=== PATIENT | female | born 1975 | race Caucasian/White ===

== ENCOUNTER 2019-12-15 04:36 | Inpatient (IN) | payer OTHER, SELFPAY ==
--- NOTE | ~2019-12-15 | CT_ITS ---
EXAMINATION: CT abdomen pelvis w con INDICATION: Abdominal pain TECHNIQUE: Computed tomographic images of the abdomen and pelvis were obtained after the administrati on of 100 cc of Omnipaque 350 intravenous contrast. The dose-length product (DLP) was 274.14 mGy-cm. Automated exposure control and iterative reconstruction technique were employed. COMPARISON: None available FINDINGS: A 3 mm nodule right lower lobe likely granulomatous disease. The heart size is normal. Ther e is a 1.3 cm cyst of the left hepatic lobe. The spleen, pancreas, and adrenal glands are normal. The re is wall thickening of the gallbladder. No definite gallstones are identified. There is no intrahep atic or extrahepatic biliary dilatation. The kidneys are unremarkable. No pathologically enlarged abd ominal or pelvic lymph nodes are identified. Large stool There is a small fat-containing umbilical he rnia. IMPRESSION: 1. Gallbladder wall thickening which could reflect acute cholecystitis. Consider further evaluation w ith ultrasound and/or nuclear hepatobiliary scan. Reviewed, dictated and finalized at location A. E GRINDER IMPRESSION: 1. Gallbladder wall thickening which could reflect acute cholecystitis. Conside r further evaluation with ultrasound and/or nuclear hepatobiliary scan.
--- NOTE | ~2019-12-15 | XR_ITS ---
EXAMINATION: XR chest 2V DATE: 12/15/2019 05:38 INDICATION: Cough TECHNIQUE: PA and lateral views of the chest are obtained. COMPARISON: None available FINDINGS: The lungs are free of acute opacities. There is no pleural effusion or pneumothorax. The ca rdiomediastinal silhouette is normal. The visualized bones and soft tissues are unremarkable. IMPRESSION: 1. No acute cardiopulmonary abnormality. Reviewed, dictated and finalized at location A. [employer] [employer]
[2019-12-15 04:39] VITALS: BP 142/67; PULSE 94; RESP 18; TEMP 36.8; O2SAT 99
--- NOTE | 2019-12-15 04:47 | ECG_ITS ---
Measurements Intervals [place] Rate: 83 P: 64 WI: 153 QRS: 58 QRSD: 90 T: 32 QT: 359 QTc: 422 Interpretive Statements SINUS RHYTHM NORMAL ECG Electronically Signed On 12-15-2019 6:54:36 HOME LENDING OFFICER by Ariel Rodarte D.O.
--- NOTE | 2019-12-15 04:48 | ED.ABDPAIN ---
HPI - Abdominal Pain General Chief Complaint: Abdominal Pain Stated Complaint: abd pain Time Seen by Provider: 12/15/19 04:45 Source: RN notes reviewed History of Present Illness HPI narrative: Patient presents emergency department from home for abdominal pain. Patient states that pain began at 7 PM last night. The pain is located in the epigastric region and goes through into the back. The pain is described as a pressure in nature. States the patient has come and gone throughout the night and is currently improved. She denies any fevers or chills, shortness of breath vomiting diarrhea or any other symptoms. Patient states she was just diagnosed with gallstones last week with an ultrasound and is scheduled to see Dr. York for general surgery. She states that this is her fifth episode of similar pain this year is why she has had the ultrasound. She denies taking any medication at home Related Data Home Medications Medication Instructions Recorded Confirmed Xarelto 20 mg PO DAILY 08/19/19 08/27/19 Zyrtec 10 mg PO DAILY 08/19/19 08/27/19 alprazolam [Xanax] 0.25 mg PO BID PRN 08/19/19 08/27/19 atorvastatin 40 mg PO DAILY 08/19/19 08/27/19 cholecalciferol (vitamin D3) 1 unit PO DAILY 08/19/19 08/27/19 [Vitamin D3] doxycycline hyclate 100 mg PO DAILY 08/19/19 08/27/19 metoprolol succinate 25 mg PO DAILY 08/19/19 08/27/19 spironolactone 50 mg PO DAILY 08/19/19 08/27/19 amoxicillin 500 mg PO DAILY 12/15/19 pantoprazole 40 mg PO DAILY 12/15/19 Allergies Allergy/AdvReac Type Severity Reaction Status Date / Time cat dander Allergy Unknown Verified 12/15/19 04:48 mushroom Allergy Unknown Verified 12/15/19 04:48 SUMATRIPTAN SUCCINATE Allergy Mild Swelling Uncoded 12/15/19 04:48 of Lip/Tongue/Throat Review of Systems Review of Systems: Narrative: Gen.: Denies fevers or chills ENT: Denies congestion Respiratory: Denies shortness of breath or cough CV: Denies chest pain or palpitations GI: See HPI denies burning, urgency, frequency or hematuria Musculoskeletal: Denies back pain or muscle pain Neuro: Denies numbness, tingling, weakness or focal weakness Skin: Denies rash Except as documented, all other systems reviewed and negative FORMERLY [facility], 1928–1983 Past Medical History Medical History Anxiety DVT (deep venous thrombosis) blood clot currently in left leg Factor V Leiden History of heart attack 06/2019 - balloon angioplasty Hypertension Social History Social History Smoking status: Never smoker Second hand tobacco smoke exposure: No Alcohol intake: current Drinks per week: 1 Substance use: never Gender identity (if verbalized by the patient): Female Spiritual care concerns: No Exam Narrative: Exam Narrative: APPEARANCE: No acute distress, nontoxic, resting in bed HEENT: Normocephalic, atraumatic, OMM RESPIRATORY: No respiratory distress, clear to auscultation bilaterally with no rhonchi wheezing or rales CARDIOVASCULAR: RRR s murmur ABDOMINAL: Soft, nondistended, tender to palpation epigastric right upper quadrant, no tenderness left lower quadrant, right lower quadrant left lower quadrant, no rebound or guarding MUSCULOSKELETAl: Moves all extremities. No clubbing, cyanosis or edema. NEURO: Awake and alert. Following commands, speech normal, no focal deficits SKIN:: Warm, dry. Normal Color PSYCHIATRIC: Normal affect/mood Course Course Emergency Course: Discussed with Dr. Sarah presentation work-up. This time request admission to his service. Request patient started on Zosyn Patient states she last took her dose of Xarelto at 7:00 last night Discussed with patient and family results of workup and diagnosis. Discussed need for admission. Patient and family understand and agree to current treatment plan Vital Signs Vital signs: Vital Signs Temperature 98.2 F 12/15/19 04:39 Pul
[2019-12-15 05:05] LABS: Basophils Percent Auto 0.3 % (0.2-1.2); Eosinophils Absolute Auto 0.2 K/mm3 (0-0.3); Eosinophils Percent Auto 2.4 % (0-4.4); Hematocrit 38.2 % (37.0-47.0); Hemoglobin 12.7 g/dL (12.0-15.0); Immature Granulocyte Absolute 0.03 K/mm3 (0.00-0.031); Immature Granulocyte Percent A 0.3 % (0-0.5); Lymphocytes Absolute Auto 1.93 K/mm3 (0.9-3.2); Lymphocytes Percent Auto 22.5 % (18.3-44.2); Mean Corpuscular HGB Conc 33.2 g/dl (32-36); Mean Corpuscular Hemoglobin 28.7 pg (26-34); Mean Corpuscular Volume 86.2 fl (80-100); Mean Platelet Volume 10.2 fl (7.4-10.4); Monocytes Absolute Auto 0.6 K/mm3 (0.1-0.6); Monocytes Percent Auto 6.8 % (2.6-8.5); Neutrophils Absolute Auto 5.8 K/mm3 (1.3-6.7); Neutrophils Percent Auto 67.7 % (45.5-73.1); Platelet Count Result 290 k/mm3 (150-375); Red Blood Count 4.43 M/mm3 (4.2-5.4); Red Cell Distribution Width 13.4 % (11.5-14.5); White Blood Count 8.6 K/mm3 (4.5-10.0)
[2019-12-15] MEDS: KETOROLAC 30 MG/ML VIAL (*BKC) IV PUSH (05:07)
[2019-12-15] MEDS: LACTATED RINGERS 1,000 ML 999 ML IV CONT (05:07)
[2019-12-15 05:17] LABS: Alanine Aminotransferase 46 U/L (4-35); Albumin Level 4.5 g/dL (3.5-5.1); Alkaline Phosphatase 108 U/L (38-126); Aspartate Amino Transferase 35 U/L (14-36); Bilirubin,Total 0.6 mg/dL (0.2-1.3); Blood Urea Nitrogen 15 mg/dL (7-17); Calcium 9.2 mg/dL (8.4-10.2); Carbon Dioxide 25 mmol/L (22-30); Chloride 98 mmol/L (98-107); Estimated Glomerular Filt Rate > 60; Glucose 102 mg/dL (65-105); Lipase 227 U/L (23-300); Potassium 3.9 mmol/L (3.4-5.0); Sodium 138 mmol/L (137-145)
[2019-12-15 05:20] LABS: Add Urine Microscopic? NO; Appearance Urine Clear (Clear); Bilirubin Urine Negative (Negative); Blood Urine Negative (Negative); Color Urine Colorless (Yellow); Glucose Urine UA Negative (Negative); Ketones Urine Negative (Negative); Leukocyte Esterase Ur Negative LEU/UL (Negative); Nitrate Urine Negative (Negative); Protein Urine Negative (Negative); Specific Grav Ur 1.005 (1.001-1.035); Urobilinogen Urine Negative mg/dL (<2.0)
[2019-12-15 05:28] LABS: Troponin I < 0.012 ng/mL (0.000-0.034)
[2019-12-15 05:31] LABS: INR 1.4; Prothrombin Time 16.8 Seconds (11.1-14.7)
[2019-12-15 05:32] LABS: Partial Thromboplastin Time 33.9 SECONDS (22.3-36.8)
[2019-12-15 05:58] VITALS: BP 126/69; PULSE 88; RESP 20; O2SAT 99
[2019-12-15 06:45] VITALS: BP 116/68; PULSE 73; RESP 19; TEMP 36.7; O2SAT 99
--- NOTE | 2019-12-15 06:58 | ADMGEN ---
This patient, Geri Monteiro, was admitted to [facility] Surg Room 331-01 at 0655. Patient/family oriented to hospital policies and general routines including ID bracelet, bed and alarms, visiting hours, pain management, procedures, bathroom and other care routines, personal items, smoking policy, room service/diet, and visiting hours. Valuables list has been completed. Information on how to activate the Rapid Response Team has been discussed. Patient/Family are encouraged to report perceived risks to care and to ask questions if they do not understand what they are told or what they should do.
[2019-12-15 07:11] VITALS: BP 120/64; PULSE 73; RESP 18; TEMP 36.6; O2SAT 100
[2019-12-15] MEDS: LACTATED RINGERS 1,000 ML 125 ML IV CONT ×2 (08:58→18:12)
--- NOTE | 2019-12-15 11:19 | PM.IMHP ---
H&P: HPI History of Present Illness Chief complaint: cholecystitis Narrative: Geri Monteiro is a 44 year old female with Factor V Leiden and history of a STEMI and left lower extremity DVT in June of 2019. She has been having intermittent episodes of epigastric abdominal pain and chest pain that radiates to the back since early October of 2018. She reports five episodes of this similar type of pain. For the first three episodes, she associated this pain with heartburn and would take over the counter antacids and her pain would resolve fairly quickly. She then had a more intense episode of pain that started during the day after eating chili about 1-2 weeks ago. The pain lasted through the night but resolved the next day. She called her PCP for this pain and they ordered an ultrasound and labs, which were done on 's day. She then saw her PCP, was told she had gallstones, and was referred to our office for a consultation. She does not have an appointment scheduled as of now. She reports that her PCP instructed her to go to the ER if her abdominal pain returns and persists more than a half hour. She then reports that yesterday she had a hamburger and macaroni and cheese in the late afternoon. She then developed mild epigastric abdominal pain that radiates to her lower midsternal chest and around to her back around 9 pm. She tried to eat chicken noodle soup to help, which did not alleviate her pain. She drank water and used a warm compress to her upper abdomen, and was able to fall asleep. Around 1:30 am this morning, she had a sudden onset of this same pain that woke her from her sleep. The pain was rated at a 9/10 on a pain scale and was unrelenting. She reports trying to get up from bed to go to the hospital, but her pain would improve with standing or walking. Therefore, she put off going to the hospital for a few hours. She states that within lying back in bed, her pain would return severely within 5 minutes. Due to the continued pain, she decided to present to the ER for further evaluation. CT scan of the abdomen and pelvis showed gallbladder wall thickening, but no gallstones seen and no biliary ductal dilation. Labs revealed a normal white blood cell count of 8,600, normal troponin, total bilirubin 0.6, AST 35, ALT 46, alk phos 108, and lipase 227. Chest x-ray showed no acute cardiopulmonary findings. Our service was then contacted and the patient was admitted for concern of possible acute cholecystitis. The patient is now being seen on the medical floor. She was made NPO and started on IV fluids, analgesics, antiemetics, and IV antibiotics. She reports her pain was nearly resolved in the ED, but is now at a 2/10 on a pain scale and in the same location. She did develop some dry heaving on the drive into the hospital, but denies nausea or vomiting at this time. She reports an associated low grade fever of 99 F early this morning, but afebrile since admission. She also reports seeing her PCP last week for upper respiratory symptoms with a persistent cough. She tested negative for influenza in the office and was put on amoxicillin. Reports mild shortness of breath, or the feeling on being unable to get a good breath , since her STEMI in June. No other complaints at this time. Also to note, the patient was admitted to [facility] on 07/07/19 for a STEMI. She was taken for an emergent cardiac catheterization and was found to have thrombus in her RPL branch and was treated with balloon angioplasty, no stent was placed, and no evidence of coronary artery disease. The patient was then started on metoprolol, atorvastatin, and Effient. Echocardiogram was performed and showed a normal ejection fraction and also a patent foramen ovale. She was also found to have a left common femoral DVT and was started on Xarelto during this admission. Dr. Bowles had been consulted during this admission due to her Factor V Leiden and she has been following him on an outpatient basis as well.
[2019-12-15 14:00] VITALS: BP 130/67; PULSE 80; RESP 18; TEMP 37.1; O2SAT 97
[2019-12-15] MEDS: KETOROLAC 10 MG TABLET PO (18:19)
[2019-12-15] MEDS: DEXTROMETHORPHAN POLISTIREX 60 MG/10 ML SYRINGE PO (18:40)
[2019-12-15] MEDS: LORATADINE 10 MG TABLET PO (18:41)
[2019-12-15] MEDS: PANTOPRAZOLE 40 MG TABLET PO (18:42)
[2019-12-15 22:00] VITALS: BP 101/49; PULSE 72; RESP 16; TEMP 36.6; O2SAT 97; BMI 20.7
[2019-12-16] MEDS: LACTATED RINGERS 1,000 ML 125 ML IV CONT ×3 (02:36→20:20)
[2019-12-16 06:08] VITALS: BP 103/52; PULSE 56; RESP 20; TEMP 36.6; O2SAT 97
[2019-12-16 06:58] LABS: Basophils Percent Auto 0.5 % (0.2-1.2); Eosinophils Absolute Auto 0.2 K/mm3 (0-0.3); Eosinophils Percent Auto 3.3 % (0-4.4); Hemoglobin 10.8 g/dL (12.0-15.0); Immature Granulocyte Absolute 0.02 K/mm3 (0.00-0.031); Immature Granulocyte Percent A 0.3 % (0-0.5); Lymphocytes Absolute Auto 2.18 K/mm3 (0.9-3.2); Lymphocytes Percent Auto 37.5 % (18.3-44.2); Mean Corpuscular HGB Conc 33.8 g/dl (32-36); Mean Corpuscular Hemoglobin 28.6 pg (26-34); Mean Corpuscular Volume 84.9 fl (80-100); Mean Platelet Volume 9.7 fl (7.4-10.4); Monocytes Absolute Auto 0.3 K/mm3 (0.1-0.6); Monocytes Percent Auto 5.8 % (2.6-8.5); Neutrophils Absolute Auto 3.1 K/mm3 (1.3-6.7); Neutrophils Percent Auto 52.6 % (45.5-73.1); Platelet Count Result 221 k/mm3 (150-375); Red Blood Count 3.77 M/mm3 (4.2-5.4); Red Cell Distribution Width 13.6 % (11.5-14.5); White Blood Count 5.8 K/mm3 (4.5-10.0)
[2019-12-16 07:14] LABS: Alanine Aminotransferase 31 U/L (4-35); Alkaline Phosphatase 64 U/L (38-126); Aspartate Amino Transferase 25 U/L (14-36); Bilirubin,Total 0.8 mg/dL (0.2-1.3); Blood Urea Nitrogen 10 mg/dL (7-17); Calcium 8.2 mg/dL (8.4-10.2); Carbon Dioxide 28 mmol/L (22-30); Chloride 104 mmol/L (98-107); Estimated CRCL calculation 65 ml/min; Estimated Glomerular Filt Rate > 60; Glucose 79 mg/dL (65-105); Potassium 3.9 mmol/L (3.4-5.0); Sodium 138 mmol/L (137-145)
[2019-12-16] MEDS: PANTOPRAZOLE 40 MG TABLET PO (08:09)
[2019-12-16] MEDS: LORATADINE 10 MG TABLET PO (08:09)
[2019-12-16] MEDS: DEXTROMETHORPHAN POLISTIREX 60 MG/10 ML SYRINGE PO ×2 (08:11→21:37)
[2019-12-16] MEDS: ENOXAPARIN 80 MG/0.8 ML SYRINGE 65 MG SUB-Q ×2 (10:06→20:28)
--- NOTE | 2019-12-16 11:13 | PM.CNCAR ---
Assessment and Plan Assessment and plan (1) Acute cholecystitis: Code(s): K81.0 - Acute cholecystitis Status: Acute Assessment and Plan: 44-year-old female with history of factor 5 leiden ? Heterozygous, acute coronary syndrome-likely coronary embolic event/paradoxical embolization, status post balloon angioplasty RPL branch on 07/07/2019, PFO (attempted closure of a small PFO unsuccessful on 12/08/2019 at [facility], history of left lower extremity DVT. Patient admitted to the hospital with abdominal pain, and found to have acute cholecystitis. Patient is essentially asymptomatic from cardiac standpoint at present. EKG is normal. - Patient is currently awaiting cholecystectomy. Management as per the surgery. - okay to proceed with surgery from cardiac standpoint. -patient has factor 5 Leiden, history of DVT, and cardioembolic event due to paradoxical embolization with underlying small PFO. She has been on chronic anticoagulation with rivaroxaban. Unfortunately, her recent attempted PFO closure was unsuccessful at [facility]. Due to patient's history of thromboembolic events, it is appropriate to bridge her anticoagulation with low-molecular weight heparin, and resume rivaroxaban as soon as safe from surgical standpoint postoperatively. -no further cardiac testing is necessary at this time. Outpatient follow-up with me in next few weeks. Patient is also scheduled to see her management coordinator as an outpatient. (2) Factor V Leiden: Code(s): D68.51 - Activated protein C resistance Status: Acute Assessment and Plan: See above (3) History of MO (myocardial infarction): Code(s): I25.2 - Old myocardial infarction Status: Acute Assessment and Plan: See above. Continue low-dose aspirin regimen. (4) History of DVT (deep vein thrombosis): Code(s): Z86.718 - Personal history of other venous thrombosis and embolism Status: Acute Assessment and Plan: See above (5) PFO (patent foramen ovale): Code(s): Q21.1 - Atrial septal defect Status: Acute Assessment and Plan: Management as described above History of Present Illness History of Present Illness Consult date/time: 12/16/19 11:13 Date of consult: 12/16/2019 Reason for consult: Preop cardiovascular assessment Requesting physician: ANJALI Hampton Chief complaint: Abdominal pain HPI: 44-year-old female with history of factor 5 leiden ? Heterozygous, acute coronary syndrome-likely coronary embolic event/paradoxical embolization, status post balloon angioplasty RPL branch on 07/07/2019, PFO (attempted closure of a small PFO unsuccessful on 12/08/2019 at [place]) [facility], history of left lower extremity DVT. Patient was admitted to [facility] on 12/15/2019 with complaints of abdominal pain. Patient states that she has been experiencing episodes of epigastric and right upper quadrant discomfort, at least 5 episodes since October 2019. She is that she had an ultrasound done and was told that she has gallstones. She came to the hospital yesterday with recurrent discomfort in the epigastric area. She denied any associated symptoms including nausea, vomiting, constipation or diarrhea. From cardiac standpoint, she denies any chest pain, shortness of breath. CT scan of the abdomen reported Gallbladder wall thickening suggestive of acute cholecystitis. Patient is currently waiting for the cholecystectomy. Her EKG on this admission which I personally evaluated shows sinus rhythm, no acute ST segment abnormality. Chest x-ray is unremarkable. Reason For Visit: cholecystitis Review of Systems Constitutional: Constitutional: Denies chills, Denies fatigue, Denies fever(s) and Denies headache(s) Eyes: Eyes: Reports as per HPI, Denies change in vision, Denies loss of vision and Denies eye pain ENT: Reports as per HPI, Reports Normal hearing present, Denies headache(s), Denies lip
--- NOTE | 2019-12-16 11:55 | PM.PNGS ---
Progress Note: A&P Assessment and Plan (1) Acute cholecystitis: Code(s): K81.0 - Acute cholecystitis Status: Acute Assessment and Plan: Patient clinically improved but would like to proceed with surgery on this admission if possible. Continue IV antibiotics. Cardiology consult reviewed and appreciated. We will proceed with surgery and initiated bridging with therapeutic-dosed Lovenox today Will allow clear liquid diet for today and plan to schedule surgery tomorrow with Dr. Sarah. (2) Anticoagulant long-term use: Code(s): Z79.01 - intermediate (current) use of anticoagulants Status: Acute Assessment and Plan: Cardiology recommends bridging her anticoagulation with LMWH and resuming her Xarelto as soon as safe after surgery, due to her history of thromboembolic events. Currently on therapeutic dose of Lovenox pre-operatively. Hold her dose tomorrow morning. (3) Factor V Leiden: Code(s): D68.51 - Activated protein C resistance Status: Acute (4) History of heart attack: Code(s): I25.2 - Old myocardial infarction Status: Acute Assessment and Plan: Acute coronary syndrome in June 2019 and was found to have likely a coronary embolic event/paradoxical embolization requiring balloon angioplasty to RPL branch on 07/07/19. (5) PFO (patent foramen ovale): Code(s): Q21.1 - Atrial septal defect Status: Acute Assessment and Plan: Attempted closure of small PFO on 12/08/19, which was unsuccessful. Additional Plan Discussed the patient's case and plan of care with Dr. Sarah. Subjective Subjective Date/Time Seen: 12/16/19 09:55 Patient reports: no new complaints, feels better and bowel movement Interval history: Patient seen and examined. Denies any abdominal or substernal pain this morning. Tolerating clear liquids well without nausea, vomiting, or bloating. No other complaints at this time. Review of Systems Review of Systems: All systems reviewed & are unremarkable except as noted in HPI and below Exam Const: General: comfortable and no acute distress Resp: Auscultation: clear to auscultation bilaterally Cardio: Rate: regular rate Rhythm: regular rhythm GI: Inspection: normal to inspection and non-distended GI Palp: Yes Soft to palpation, Yes Tenderness to palpation present (GI) (upper abdomen mostly in RUQ), No Guarding due to palpation present (GI) and No Rebound tenderness present Auscultation: normal bowel sounds Skin: General skin exam: normal color Neuro: General: patient oriented x3 and no focal motor deficits Speech: normal speech Extrem: General: normal to inspection Psych: Mental Status: mental status grossly normal Attitude: cooperative Objective Data Vital Signs Vital Signs: Vital Signs - 24 hr 12/15/19 14:00 12/15/19 22:00 12/16/19 06:08 Temperature 37.1 C 36.6 C 36.6 C Pulse Rate 80 72 56 L Respiratory Rate 18 16 20 Blood Pressure 130/67 101/49 L 103/52 L Pulse Oximetry 97 97 97 Intake/Output Intake/Output: Intake & Output 12/13/19 12/14/19 12/15/19 12/16/19 23:59 23:59 23:59 23:59 Intake Total 2800 2620 Output Total 1000 Balance 2800 1620 Meds/Results Medications: Active Medications Generic Name Dose Route Start Last Admin Trade Name Freq PRN Reason Stop Dose Admin Dextromethorphan Polistirix 60 mg 12/15/19 17:09 12/16/19 08:11 Delsym PO 60 mg Q12H PRN Administration Cough Enoxaparin Sodium 65 mg 12/16/19 09:00 12/16/19 10:06 Lovenox SUB-Q 65 mg Q12H CHACORTA Administration Lactated Ringer's 1,000 mls @ 125 mls/hr 12/15/19 06:10 12/16/19 11:45 Lr - Lactated Ringers Iv IV CONT 125 mls/hr .Q8H CHACORTA Administration Piperacillin/Tazobactam/Dextrose 3.375 gm in 50 mls @ 100 mls/hr 12/15/19 21:00 12/16/19 08:40 Zosyn 3.375 Gm/D5w 50ml Pm IVPB Infused Q6H CHACORTA Infusion Acetaminophen 1,000 mg in 100 mls @ 400 mls/hr 12/16/19 09:13
[2019-12-16 14:00] VITALS: BP 110/49; PULSE 68; RESP 18; TEMP 36.8; O2SAT 100
[2019-12-16 22:00] VITALS: BP 129/67; PULSE 72; RESP 18; TEMP 36.3; O2SAT 100
[2019-12-17] VITALS (12 sets, daily range): BP systolic 107–127; BP diastolic 47–79; PULSE 70–85; RESP 12–23; TEMP 36.6–37.2; O2SAT 95–100
[2019-12-17] MEDS: LACTATED RINGERS 1,000 ML 125 ML IV CONT (06:07)
--- NOTE | 2019-12-17 08:40 | WPDANESEPPF ---
Anes - Initial Pre Proc Eval Procedure: Operation Date: 12/17/19 14:30 Proposed Procedures p Laparoscopic Cholecystectomy,Possible Open - Oneil Sarah DO Date/Time: 12/17/19 08:40 Surgeon: Oneil Sarah DO Pre Op Diagnosis: cholecystitis Patient Data Age: 44 Gender: F Height: 1.75 m Weight: 63.9 kg Last Vital Signs Temp 36.6 C 12/17/19 06:00 Pulse 76 12/17/19 06:00 Resp 16 12/17/19 06:00 BP 107/52 L 12/17/19 06:00 Pulse Ox 99 12/17/19 06:00 Allergies Allergy/AdvReac Type Severity Reaction Status Date / Time cat dander Allergy Unknown Verified 12/15/19 04:48 mushroom Allergy Unknown Verified 12/15/19 04:48 sumatriptan Allergy Swelling Verified 12/15/19 07:02 of Lip/Tongue/Throat Home Medications Medication Instructions Recorded Confirmed Type Xarelto 20 mg PO HS 08/19/19 12/15/19 History Zyrtec 10 mg PO DAILY 08/19/19 12/15/19 History alprazolam [Xanax] 0.25 mg PO BID PRN 08/19/19 12/15/19 History atorvastatin 40 mg PO DAILY 08/19/19 12/15/19 History cholecalciferol (vitamin D3) 1 unit PO DAILY 08/19/19 12/15/19 History [Vitamin D3] doxycycline hyclate 100 mg PO DAILY 08/19/19 12/15/19 History metoprolol succinate 25 mg PO DAILY 08/19/19 12/15/19 History spironolactone 50 mg PO DAILY 08/19/19 12/15/19 History amoxicillin 500 mg PO TID 12/15/19 12/15/19 History pantoprazole 40 mg PO DAILY 12/15/19 12/15/19 History Laboratory Tests 12/17/19 05:43 Blood Type B Positive Antibody Screen Negative ECG: Date of Service: 12/15/19 Procedure(s): CA 12 lead EKG Accession Number(s): [id number] cc: ~ Measurements Intervals [place] Rate: 83 P: 64 MN: 153 QRS: 58 QRSD: 90 T: 32 QT: 359 QTc: 422 Interpretive Statements SINUS RHYTHM NORMAL ECG Electronically Signed On 2-24-2020 6:54:36 BOBBIN DUMPER by Ariel Rodarte D.O. Dictated By: Ariel Rodarte DO 12/15/19 0454 Other Studies: 12/16 cardiology assessment: 44-year-old female with history of factor 5 leiden ? Heterozygous, acute coronary syndrome-likely coronary embolic event/paradoxical embolization, status post balloon angioplasty RPL branch on 07/07/2019, PFO (attempted closure of a small PFO unsuccessful on 12/08/2019 at [facility], history of left lower extremity DVT. Patient admitted to the hospital with abdominal pain, and found to have acute cholecystitis. Patient is essentially asymptomatic from cardiac standpoint at present. EKG is normal. - Patient is currently awaiting cholecystectomy. Management as per the surgery. - okay to proceed with surgery from cardiac standpoint. -patient has factor 5 Leiden, history of DVT, and cardioembolic event due to paradoxical embolization with underlying small PFO. She has been on chronic anticoagulation with rivaroxaban. Unfortunately, her recent attempted PFO closure was unsuccessful at [facility]. Due to patient's history of thromboembolic events, it is appropriate to bridge her anticoagulation with low-molecular weight heparin, and resume rivaroxaban as soon as safe from surgical standpoint postoperatively. -no further cardiac testing is necessary at this time. Outpatient follow-up with me in next few weeks. Patient is also scheduled to see her heater helper as an outpatient. Patient hx anesthesia problems: none Family hx anesthesia problems: none PMFSH Past Medical History Medical History (Updated 12/17/19 @ 08:41 by Jacob Vargas MD) Acute cholecystitis Anxiety DVT (deep venous thrombosis) History of DVT in Left common femoral vein found in June of 2019, treated with Xarelto. Repeat doppler ultrasound in September
[2019-12-17] MEDS: LACTATED RINGERS 1,000 ML 30 ML IV CONT ×2 (14:15→17:55)
[2019-12-17] MEDS: IBUPROFEN IV 800 MG/200 ML 800 MG/200 ML BAG 400 MG IVPB (14:29)
[2019-12-17] MEDS: BUPIVACAINE/EPINEPHRINE 0.5% 30 ML VIAL INFILTRATE (16:19)
--- NOTE | 2019-12-17 16:53 | PM.PROC ---
Procedure Note - Detailed Date of procedure: 12/17/19 Pre-op diagnosis: acute calculous cholecystitis Post-op diagnosis: same Procedure performed: Laparoscopic Cholecystectomy Description of procedure: Procedure as well as risks, benefits, and alternatives were discussed with patient. Written consent was obtained and placed in chart prior to procedure. The patient was brought back to surgical suite. Patient was placed in supine position on operating table. Time-out was done to confirm patient and procedure. Patient was then intubated by the anesthesia department. Abdomen was prepped and draped in sterile fashion using chlorhexidine prep. 0.5% bupivacaine with epinephrine was infiltrated at each site of incision. An 11 millimeter vertical incision was made at the inferior portion of the umbilicus using a 15 blade scalpel. Blunt dissection was carried down to the linea alba. The linea alba was then incised using a 15 blade scalpel. The peritoneum was then bluntly entered. An 11 millimeter trocar was inserted and cabon dioxied insuflation was used to create a pneumoperitoneum. The camera was inserted and the abdomen was inspected. The patient was placed in reverse Trendelenberg position and rotated slightly to the left. A 5 millimeter incision was made in the epigastric region, and a 5 millimeter trocar was inserted under direct visualization. Two 5 millimeter incisions were made in the right upper quadrant, and two 5 millimeter trocars were inserted under direct visualization. The gallbladder was identified and grasped at the fundus and retracted superiorly. It was then grasped at the infundibulum retracted laterally. Careful dissection around the neck of the gallbladder was performed using blunt dissection with a [place] grasper and hook electrocautery. The cystic duct was identified, and a window was created behind it. The cystic artery was also identified and a window was created behind it. The critical view of safety was identified, visualizing the cystic duct running directly into the neck of the gallbladder, and the cystic artery running directly into the wall of the gallbladder. A 5 millimeter clip manager transition was then used to place 2 clips proximally and 1 clip distally on both the cystic duct and cystic artery. They were then both transected using endoscopic scissors. Once safely away from the mc hepatitis, the gallbladder was dissected free from the liver bed using hook electrocautery. Hemostasis was achieved along the way. The gallbladder was removed completely and then removed through the umbilical port. The liver bed was then inspected. Hemostasis appeared adequate, and our clips appeared secure. The area was gently irrigated with sterile saline. No other abnormalities were seen. The patient was flattened out in bed, and 1 final inspection was made around the abdominal cavity. The ports were then removed under direct visualization, the camera was removed, and the pneumoperitoneum was released. The fascia of the umbilical incision was approximated using an 0 Vicryl [id number]-ae-zybec suture. The skin of the incisions was approximated using 4-0 Monocryl subcuticular sutures. Exofin glue was applied on top. The patient was then awakened from anesthesia, extubated, and transferred to recovery. Anesthesia: GETA and local (0.5% bupivicaine with epinephrine) Surgeon: Oneil Sarah DO Estimated blood loss (mL): 20 Complications: No immediate complications Condition: stable Findings: This is a 44-year-old woman who presented to the emergency department with right upper quadrant pain. She had been experiencing worsening pain over the past several days. She has a history of factor 5 Leiden deficiency and was on Xarelto. She also has a history of PFO and underwent attempted endovascular closure last week but this was unsuccessful. She remains on blood thinners due to persistent PFO and hypercoagulable state. Her workup with a CT showed e
[2019-12-17] MEDS: HYDROMORPHONE HCL 1 MG/ML INJ 0.25 MG IV PUSH ×8 (17:32→18:13)
--- NOTE | 2019-12-17 17:57 | SUR.PHASEI ---
UPDATED ON PT STATUS AT THIS TIME
[2019-12-17] MEDS: ALPRAZOLAM 0.25 MG TABLET PO (19:38)
[2019-12-18 02:00] VITALS: BP 102/56; PULSE 70; RESP 16; TEMP 37.2; O2SAT 96
[2019-12-18 06:00] VITALS: BP 107/54; PULSE 75; RESP 16; TEMP 37.1; O2SAT 98
[2019-12-18] MEDS: ATORVASTATIN 40 MG TABLET PO (08:20)
[2019-12-18] MEDS: METOPROLOL SUCCINATE EXT REL 25 MG TABCR PO (08:22)
[2019-12-18] MEDS: PANTOPRAZOLE 40 MG TABLET PO (08:23)
[2019-12-18] MEDS: SPIRONOLACTONE 50 MG TABLET PO (08:23)
[2019-12-18 08:24] VITALS: BP 122/54; PULSE 88; RESP 16; TEMP 37.1; O2SAT 98
[2019-12-18] MEDS: DEXTROMETHORPHAN POLISTIREX 60 MG/10 ML SYRINGE PO (09:27)
--- NOTE | 2019-12-18 10:01 | PM.DS ---
DS: Diagnosis Admitting Diagnosis Admitting Diagnosis: Acute cholecystitis Discharge Diagnosis (1) Acute cholecystitis: Code(s): K81.0 - Acute cholecystitis Status: Acute (2) Anticoagulant long-term use: Code(s): Z79.01 - FPC (current) use of anticoagulants Status: Acute (3) History of [place] (myocardial infarction): Code(s): I25.2 - Old myocardial infarction Status: Acute (4) History of DVT (deep vein thrombosis): Code(s): Z86.718 - Personal history of other venous thrombosis and embolism Status: Acute (5) PFO (patent foramen ovale): Code(s): Q21.1 - Atrial septal defect Status: Acute (6) Factor V Leiden: Code(s): D68.51 - Activated protein C resistance Status: Acute (7) Anxiety: Code(s): F41.9 - Anxiety disorder, unspecified Status: Acute DS: Summary Hospital Course Reason for hospitalization: Geri Monteiro is a 44 year old female with Factor V Leiden and history of a STEMI and left lower extremity DVT in June of 2019. She has been having intermittent episodes of epigastric abdominal pain and chest pain that radiates to the back since early October of 2018. She reports five episodes of this similar type of pain. For the first three episodes, she associated this pain with heartburn and would take over the counter antacids and her pain would resolve fairly quickly. She then had a more intense episode of pain that started during the day after eating chili about 1-2 weeks ago. The pain lasted through the night but resolved the next day. She called her PCP for this pain and they ordered an ultrasound and labs, which were done on Salomon's day. She then saw her PCP, was told she had gallstones, and was referred to our office for a consultation that had not yet been scheduled. She reports that her PCP instructed her to go to the ER if her abdominal pain returns and persists more than a half hour. She then reports that she had a hamburger and macaroni and cheese in the late afternoon and shortly after developed mild epigastric abdominal pain that radiated to her lower substernal chest and around to her back around 9 pm. She tried to eat chicken noodle soup to help, which did not alleviate her pain. She drank water and used a warm compress to her upper abdomen, and was able to fall asleep. Around 1:30 am the next morning, she had a sudden onset of this same pain that woke her from her sleep. The pain was rated at a 9/10 on a pain scale and was unrelenting. Due to the continued pain, she decided to present to the ER for further evaluation. CT scan of the abdomen and pelvis showed gallbladder wall thickening, but no gallstones seen and no biliary ductal dilation. Labs revealed a normal white blood cell count of 8,600, normal troponin, total bilirubin 0.6, AST 35, ALT 46, alk phos 108, and lipase 227. Chest x-ray showed no acute cardiopulmonary findings. Our service was then contacted and the patient was admitted for concern of possible acute cholecystitis. Also to note for pertinent history is her recent hospitalization, the patient was admitted to [facility] on 07/07/19 for a STEMI. She was taken for an emergent cardiac catheterization and was found to have thrombus in her RPL branch and was treated with balloon angioplasty, no stent was placed, and no evidence of coronary artery disease. The patient was then started on metoprolol, atorvastatin, and Effient. Echocardiogram was performed and showed a normal ejection fraction and also a patent foramen ovale. She was also found to have a left common femoral DVT and was started on Xarelto during this admission. Dr. oBwles had been consulted during this admission due to her Factor V Leiden and she has been following him on an outpatient basis as well. She was referred to [facility] for repair of the PFO and underwent surgery on 12/08/19 but the repair was unsuccessful. She reports that the [place] specialist contacted Dr. Mirza's
[2019-12-18 12:37] VITALS: BP 119/67; PULSE 68; RESP 16; TEMP 36.7; O2SAT 97
--- NOTE | 2019-12-18 12:41 | PM.PNCARD ---
Progress Note: A&P Assessment and Plan (1) Acute cholecystitis: Code(s): K81.0 - Acute cholecystitis Status: Acute Assessment and Plan: Post laparoscopic cholecystectomy 12/17/2019. Has been instructed by surgery to restart Xarelto today. She will take it with her evening meal. (2) Factor V Leiden: Code(s): D68.51 - Activated protein C resistance Status: Acute Assessment and Plan: See above She will follow-up with Dr. Bowles for further testing. (3) History of [place] (myocardial infarction): Code(s): I25.2 - Old myocardial infarction Status: Acute Assessment and Plan: Continue atorvastatin and Metoprolol succinate (4) History of DVT (deep vein thrombosis): Code(s): Z86.718 - Personal history of other venous thrombosis and embolism Status: Acute Assessment and Plan: See above (5) PFO (patent foramen ovale): Code(s): Q21.1 - Atrial septal defect Status: Acute Assessment and Plan: She will follow-up in the office with Dr Mirza on December 24, 2019 for further recommendations regarding unsuccessful PFO closure. Additional Plan OK to discharge from cardiac standpoint See discharge instructions for follow-up Plan discussed with Dr. Teresa 1245 12/18/2019 Time Spent With Patient Time with patient: less than 15 minutes Subjective Date/time seen: 12/18/19 12:41 Interval history: Follow-up for:, history of LA, history of DVT, PFO, cholecystitis post laparoscopic cholecystectomy 12/17/2019 Date of service: 12/18/2019 Subjective: Denied shortness of breath or chest discomfort. Multiple questions regarding incisions in her right and left groin from her PFO closure attempt. Ready to go home Review of Systems Constitutional: Constitutional: Denies chills, Denies fatigue, Denies fever(s) and Denies headache(s) Eyes: Eyes: Denies change in vision, Denies loss of vision and Denies eye pain ENT: Reports Normal hearing present, Denies headache(s), Denies lip swelling, Denies epistaxis and Denies sore throat Cardiovascular: Cardiovascular: Denies chest pain, Denies syncope, Denies irregular heart rhythm, Denies lightheadedness and Denies dyspnea Respiratory: Respiratory: Denies cough, Denies dyspnea and Denies wheezing Gastrointestinal: Gastrointestinal: Reports abdominal pain (Postop pain), Denies melena, Denies nausea and Denies vomiting Musculoskeletal: Musculoskeletal: Denies myalgias, Denies muscle cramps and Denies muscle weakness Integumentary/Breasts: Skin/Breast: Denies pruritus and Denies rash Neurologic: Reports Normal hearing present, Denies behavioral changes, Denies syncope, Denies headache(s) and Denies loss of vision Psychiatric: Psychiatric: Denies anxiety, Denies behavioral changes and Denies depression Endocrine: Endocrine: Denies fatigue, Denies polydipsia and Denies polyuria Hematologic/Lymphatic: Hematologic/Lymphatic: Denies easy bleeding and Denies easy bruising Allergic/Immunologic: Allergic/Immunologic: Denies lip swelling and Denies wheezing Exam Const: General: no acute distress, alert and awake HENMT: Head: normocephalic and atraumatic Ears: hearing grossly normal bilaterally and external ears normal General nose exam: Normal external nose present and no epistaxis Face and sinus: normal facial exam and no ecchymosis Mouth: Yes moist mucous membranes Eyes: Conjunctivae: conjunctivae normal Sclera: sclerae normal Neck: Neck: normal visual inspection and supple Resp: Effort & Inspection: normal respiratory effort and able to speak in complete sentences Auscultation: clear to auscultation bilaterally Cardio: Rate: regular rate Rhythm: regular rhythm Heart sounds: S1 normal heart sound present, S2 normal heart sound present and no murmurs GI: Inspection: normal to inspection Auscultatio
--- NOTE | 2019-12-18 13:29 | WPDANESPN ---
Anes - Prog Note Post-Op Date/Time: 12/18/19 13:29 Cardiovascular status: normal Respiratory status: normal Airway patency: baseline Mental status: baseline Post-Op hydration status: normal Vital Signs: Last Vital Signs Temp 36.7 C 12/18/19 12:37 Pulse 68 12/18/19 12:37 Resp 16 12/18/19 12:37 BP 119/67 12/18/19 12:37 Pulse Ox 97 12/18/19 12:37 Pain Score (VAS): 0/10. Patient sitting up to bedside chair at time of assessment, appears comfortable. Support person at bedside. I/O: Intake & Output 12/17/19 12/18/19 12/18/19 23:59 07:59 15:59 Intake Total 750 600 240 Output Total 1900 Balance 750 -1300 240 Laboratory Tests 12/16/19 06:48 12/16/19 06:48 Post-procedural complaints: none Patient Feedback: Patient satisfied with anesthetic care.
== END 2019-12-18 14:07 | disposition home or self-care (01) | DRG 418 ==
LOC: ANHED 06:10 → ANH3MEDSUR 06:21
PROVIDERS: Admitting Provider Surgery; Emergency Provider Emergency Medicine; PCP Internal Medicine; Visit Provider Surgery
PROC: 0FT44ZZ Resection of Gallbladder, Percutaneous Endoscopic Approach (ICD-10-PCS; CPT 47562; principal; 2019-12-17 14:30)
DX: K81.0 Acute cholecystitis (principal); D68.51 Activated protein C resistance; Q21.1 Atrial septal defect; I25.2 Old myocardial infarction; Z98.61 Coronary angioplasty status; Z86.718 Personal history of other venous thrombosis and embolism; F41.9 Anxiety disorder, unspecified
CPT/HCPCS: 36415; 71046; 74177; 80053; 81003; 81025; 83690; 84484; 85025; 85610; 85730; 86850; 86900; 86901; 88304; 93005; 96361; 96365; 96366; 96372; 96374; 96375; 96376; 99285; A9270; G0378; J0131; J1100; J1170; J1650; J1741; J1885; J2250; J2405; J2543; J2704; J3010; J7030; J7120; Q9967

== ENCOUNTER 2019-12-28 14:23 | Emergency (ER) | payer OTHER, SELFPAY ==
--- NOTE | ~2019-12-28 | CT_ITS ---
EXAMINATION: CT abdomen pelvis w con EXAM DATE: 12/28/2019 16:43 INDICATION: One-week postoperative for laparoscopic cholecystectomy. TECHNIQUE: Spiral CT of the abdomen and pelvis was performed following intravenous injection of 100 m L Omnipaque 350. Axial, coronal and sagittal images were reviewed. The dose-length product (DLP) fo r this examination was 273.82 mGy-cm. The exposure was tailored according to patient size (auto mA e xposure control), and iterative reconstruction (ASIR) was used as additional dose reduction technique . Comparison is made to prior examination from 12/15/2019. FINDINGS: There is a 1.2 cm left liver lobe hypodensity, cyst. The liver, spleen, adrenal glands and pancreas are otherwise unremarkable. There are cholecystectomy clips. Only trace fluid, small amoun t of fat stranding in the gallbladder fossa, and no free pelvic fluid. Appearance is within normal li mits for recent cholecystectomy. Portal and splenic veins are patent. Kidneys enhance symmetrically . There is no hydronephrosis. The uterus and ovaries are unremarkable, no adnexal mass. The bladd er is distended but otherwise unremarkable. There is no retroperitoneal or pelvic lymphadenopathy. The appendix is normal. The stomach and small bowel are unremarkable. There is expected amount of c olonic stool. No free intraperitoneal gas. The heart is normal in size. There are no pericardial or pleural effusions. The lung bases are unremarkable. There are no osteoblastic or osteolytic les ions identified. IMPRESSION: 1. Gallbladder fossa within expected appearance for recent cholecystectomy. 2. No acute intra-abdominal findings. Reviewed, dictated and finalized at location A.
[2019-12-28 14:27] VITALS: BP 129/74; PULSE 86; RESP 18; TEMP 36.3; O2SAT 100
[2019-12-28 14:50] LABS: Basophils Percent Auto 0.6 % (0.2-1.2); Eosinophils Absolute Auto 0.1 K/mm3 (0-0.3); Eosinophils Percent Auto 2.1 % (0-4.4); Hematocrit 37.4 % (37.0-47.0); Hemoglobin 12.2 g/dL (12.0-15.0); Immature Granulocyte Absolute 0.01 K/mm3 (0.00-0.031); Immature Granulocyte Percent A 0.2 % (0-0.5); Lymphocytes Absolute Auto 1.69 K/mm3 (0.9-3.2); Mean Corpuscular HGB Conc 32.6 g/dl (32-36); Mean Platelet Volume 10.9 fl (7.4-10.4); Monocytes Absolute Auto 0.5 K/mm3 (0.1-0.6); Monocytes Percent Auto 7.2 % (2.6-8.5); Neutrophils Percent Auto 62.9 % (45.5-73.1); Platelet Count Result 272 k/mm3 (150-375); Red Cell Distribution Width 14.1 % (11.5-14.5); White Blood Count 6.3 K/mm3 (4.5-10.0)
[2019-12-28 14:53] LABS: Add Urine Microscopic? NO; Appearance Urine Clear (Clear); Bilirubin Urine Negative (Negative); Blood Urine Negative (Negative); Color Urine Straw (Yellow); Glucose Urine UA Negative (Negative); Ketones Urine Negative (Negative); Leukocyte Esterase Ur Negative LEU/UL (Negative); Nitrate Urine Negative (Negative); Protein Urine Negative (Negative); Specific Grav Ur 1.016 (1.001-1.035); Urobilinogen Urine Negative mg/dL (<2.0)
[2019-12-28 14:59] LABS: Alanine Aminotransferase 62 U/L (4-35); Albumin Level 4.2 g/dL (3.5-5.1); Alkaline Phosphatase 128 U/L (38-126); Aspartate Amino Transferase 89 U/L (14-36); Bilirubin,Total 0.7 mg/dL (0.2-1.3); Blood Urea Nitrogen 14 mg/dL (7-17); Calcium 8.9 mg/dL (8.4-10.2); Carbon Dioxide 27 mmol/L (22-30); Chloride 101 mmol/L (98-107); Estimated CRCL calculation 71 ml/min; Estimated Glomerular Filt Rate > 60; Glucose 102 mg/dL (65-105); Lipase 242 U/L (23-300); Potassium 3.7 mmol/L (3.4-5.0); Sodium 137 mmol/L (137-145)
--- NOTE | 2019-12-28 15:33 | ED.ABDPAIN ---
HPI - Abdominal Pain General Chief Complaint: Abdominal Pain Stated Complaint: Sent from urgent care Time Seen by Provider: 12/28/19 15:22 Source: patient Mode of arrival: ambulatory Limitations: no limitations History of Present Illness HPI narrative: A 44 y/o female pt presents to the ED, with c/o sudden onset of epigastric ABD pain that began at 1230PM (3 hours ago). Pt had a cholecystectomy on 12/17/2019 and finished her pain medication on . She states she noticed discomfort on (3 days ago) when her pain medication ran out. Pt states she took Tylenol on Sunday for her discomfort, but has not had anything for her pain since. She describes her pain as an ache and notes that her pain was a 10/10 upon onset, but is now a 7/10 in the department. Pt reports nausea, but denies change in food or liquid intake, change in bowel movement, or V/D. She notes Dr. Sarah was the surgeon who performed her cholecystectomy. Pt reports taking Xarelto and Aspirin as her anticoagulation therapy. MD elicited complaint: abdominal pain Pertinent past history: other (Cholecystectomy on 12/17/2019) Onset (ago): hour(s) (3) Pain Consistency: constant Location: epigastric Pain scale (0-10): 7 Quality: aching Associated symptoms: nausea Related Data Home Medications Medication Instructions Recorded Confirmed Xarelto 20 mg PO HS 08/19/19 12/15/19 Zyrtec 10 mg PO DAILY 08/19/19 12/15/19 alprazolam [Xanax] 0.25 mg PO BID PRN 08/19/19 12/15/19 atorvastatin 40 mg PO DAILY 08/19/19 12/15/19 cholecalciferol (vitamin D3) 1 unit PO DAILY 08/19/19 12/15/19 [Vitamin D3] doxycycline hyclate 100 mg PO DAILY 08/19/19 12/15/19 metoprolol succinate 25 mg PO DAILY 08/19/19 12/15/19 spironolactone 50 mg PO DAILY 08/19/19 12/15/19 pantoprazole 40 mg PO DAILY 12/15/19 12/15/19 Allergies Allergy/AdvReac Type Severity Reaction Status Date / Time mushroom Allergy Severe Swelling Verified 12/28/19 14:29 of Lip/Tongue/Throat cat dander Allergy Unknown Verified 12/28/19 14:29 sumatriptan Allergy Swelling Verified 12/28/19 14:29 of Lip/Tongue/Throat Review of Systems Review of Systems: All systems reviewed & are unremarkable except as noted in HPI and below Constitutional: Comments: Change in food or liquid intake Gastrointestinal: Gastrointestinal: Reports abdominal pain (epigastric), Denies change in bowel habits, Denies diarrhea, Reports nausea and Denies vomiting PMFSH Past Medical History Medical History Acute cholecystitis Anxiety DVT (deep venous thrombosis) History of DVT in Left common femoral vein found in June of 2019, treated with Xarelto. Repeat doppler ultrasound in September 2019 showed no DVT. Factor V Leiden History of DVT (deep vein thrombosis) History of heart attack STEMI in 06/2019 - cardiac cath with balloon angioplasty due to findings of thrombus in RPL branch. History of [place] (myocardial infarction) PFO (patent foramen ovale) Surgical History Surgical History History of cardiac catheterization June 2019 - STEMI. Thrombus in RPL branch, treated with balloon angioplasty. No other coronary artery disease noted. History of endometrial ablation August 2019 - Hysteroscopy with endometrial ablation. Social History Social History Smoking status: Never smoker Second hand tobacco smoke exposure: No Alcohol intake: current Drinks per week: 0 Substance use: never Substance use type: does not use Additional living arrangements comments: Lives with . Has three children. 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 Gender identity (if verbalized by the patient): Female Spiritual care concerns: No Agree to blood products: Yes Exam Const: G
[2019-12-28] MEDS: BELLADONNA ALK/PHENOB ELIX 10 ML, MAG HYDROX/ALUMINUM HYD/SIMETH 30 ML, LIDOCAINE HCL 2... PO (15:55)
[2019-12-28] MEDS: BELLADONNA ALK/PHENOB ELIXIR 10 ML (15:55)
[2019-12-28] MEDS: MAG HYDROX/AL HYDROX/SIMETH 30 ML UDC (15:55)
[2019-12-28] MEDS: LIDOCAINE HCL 2% VISC SOLN 15 ML UDC (15:55)
[2019-12-28] MEDS: GLYCOPYRROLATE INJ (*SP) 0.2 MG/ML VIAL IV PUSH (17:01)
[2019-12-28 18:05] VITALS: BP 120/80; PULSE 60; RESP 20; TEMP 36.7; O2SAT 99
[2019-12-28 18:48] VITALS: BP 124/78; PULSE 70; RESP 20; TEMP 36.8; O2SAT 99
== END 2019-12-28 18:52 | disposition home or self-care (01) ==
PROVIDERS: Emergency Provider Emergency Medicine; PCP Internal Medicine
DX: G89.18 Other acute postprocedural pain (principal); R10.13 Epigastric pain; F41.9 Anxiety disorder, unspecified; Z86.718 Personal history of other venous thrombosis and embolism; Z79.01 Long term (current) use of anticoagulants; I25.2 Old myocardial infarction; Z98.61 Coronary angioplasty status; D68.51 Activated protein C resistance
CPT/HCPCS: 36415; 74177; 80053; 81003; 81025; 83690; 85025; 96374; 96375; 99284; A9270; J3010; Q9967

== ENCOUNTER 2020-04-13 12:21 | Outpatient (CLI) | payer OTHER, SELFPAY ==
[2020-04-15 20:29] LABS: Anti Cardio Antibody IgM <12 MPL (<=12); Anti Cardiolipin Antibody IgA <11 APL (<=11); Anti Cardiolipin Antibody IgG <14 GPL (<=14)
[2020-04-15 20:50] LABS: Antithrombin III Activity 114 % activity (80-120)
[2020-04-15 21:56] LABS: Homocysteine 8.9 umol/L (<10.4)
[2020-04-16 03:16] LABS: Lupus dRVVT 1:1 Mix Interpreta Not Indicated; Lupus dRVVT Screen 34 sec (<=45); PTT-LA Screen 31 sec (<=40)
== END 2020-04-13 12:22 | disposition home or self-care (01) ==
PROVIDERS: PCP Internal Medicine; Visit Provider Internal Medicine Hematology & Oncology
DX: I82.4Y2 Acute embolism and thrombosis of unspecified deep veins of left proximal lower extremity (principal)
CPT/HCPCS: 36415; 81240; 81241; 83090; 85300; 85303; 85306; 85613; 85730; 86146; 86147

== ENCOUNTER 2021-10-26 15:04 | Outpatient (CLI) | payer OTHER, SELFPAY ==
[2021-10-26 15:20] LABS: Basophils Absolute Auto 0.1 K/mm3 (0.0-0.1); Basophils Percent Auto 0.8 % (0.2-1.2); Eosinophils Absolute Auto 0.2 K/mm3 (0-0.3); Eosinophils Percent Auto 2.7 % (0-4.4); Hematocrit 38.2 % (37.0-47.0); Hemoglobin 12.6 g/dL (12.0-15.0); Immature Granulocyte Absolute 0.01 K/mm3 (0.00-0.031); Immature Granulocyte Percent A 0.2 % (0-0.5); Lymphocytes Absolute Auto 2.01 K/mm3 (0.9-3.2); Lymphocytes Percent Auto 31.7 % (18.3-44.2); Mean Corpuscular Hemoglobin 29.6 pg (26-34); Mean Corpuscular Volume 89.9 fl (80-100); Mean Platelet Volume 9.9 fl (7.4-10.4); Monocytes Absolute Auto 0.4 K/mm3 (0.1-0.6); Monocytes Percent Auto 6.8 % (2.6-8.5); Neutrophils Absolute Auto 3.7 K/mm3 (1.3-6.7); Neutrophils Percent Auto 57.8 % (45.5-73.1); Platelet Count Result 250 k/mm3 (150-375); Red Blood Count 4.25 M/mm3 (4.2-5.4); Red Cell Distribution Width 12.6 % (11.5-14.5); White Blood Count 6.3 K/mm3 (4.5-10.0)
[2021-10-26 15:24] LABS: Blood Urea Nitrogen 14 mg/dL (8-26); Carbon Dioxide 24 mmol/L (22-30); Chloride 103 mmol/L (98-109); Estimated Glomerular Filt Rate 60; Glucose 85 mg/dL (70-105); Potassium 3.6 mmol/L (3.5-4.9); Sodium 140 mmol/L (138-146)
[2021-10-26 16:00] LABS: Alanine Aminotransferase 25 U/L (4-35); Albumin Level 4.2 g/dL (3.5-5.1); Alkaline Phosphatase 81 U/L (38-126); Anion Gap 5 mmol/L (8-16); Aspartate Amino Transferase 27 U/L (14-36); Bilirubin,Total 0.3 mg/dL (0.2-1.3); Blood Urea Nitrogen 14 mg/dL (7-17); Calcium 8.9 mg/dL (8.4-10.2); Carbon Dioxide 26 mmol/L (22-30); Chloride 105 mmol/L (98-107); Estimated Glomerular Filt Rate 60; Glucose 88 mg/dL (65-110); Potassium 3.7 mmol/L (3.4-5.0); Sodium 136 mmol/L (137-145)
== END 2021-10-26 15:05 | disposition home or self-care (01) ==
LOC: ANHLAB 15:05
PROVIDERS: PCP Internal Medicine; Visit Provider Internal Medicine Hematology & Oncology
DX: I82.4Y2 Acute embolism and thrombosis of unspecified deep veins of left proximal lower extremity (principal)
CPT/HCPCS: 36415; 80053; 85025

== ENCOUNTER 2022-01-30 12:21 | Emergency (ER) | payer OTHER, SELFPAY ==
--- NOTE | ~2022-01-30 | CT_ITS ---
EXAMINATION: CTA chest PE protocol DATE: 01/30/2022 17:57 INDICATION: chest wall pain TECHNIQUE: Computed tomography angiography (CTA) of the chest was performed with 100 mL Omnipaque-350 intravenous contrast timed to evaluate the pulmonary arteries. Coronal maximum intensity projection 3D-reconstructions were created by the technologist. The dose-length product (DLP) was 218.69 mGy-cm. Automated exposure control and iterative reconstruction technique were employed. COMPARISON: None. FINDINGS: Study quality: Adequate Pulmonary arteries: No pulmonary emboli detected. Thoracic aorta: Normal. Lung parenchyma and airways: Apical pleural scarring. Thoracic inlet, axillae and chest wall: Unremarkable. Mediastinum: Normal. Heart and pericardium: Normal. Coronary artery calcifications: Absent. Pleura: Apical posterior extrapleural fat and scarring. Upper abdomen: No significant finding. Bones: No acute osseous finding. IMPRESSION: No CT evidence of pulmonary embolus. Reviewed, dictated and finalized at location K.
--- NOTE | ~2022-01-30 | XR_ITS ---
EXAMINATION: XR chest 2V EXAM DATE: 01/30/2022 14:55 INDICATION: Left-sided chest pain laterally, rib pain. No known recent injury. TECHNIQUE: Frontal and lateral projections of the chest obtained and reviewed. Comparison is made to prior examination from 12/15/2019. FINDINGS: There are cholecystectomy clips. Small amount of biapical scarring. The lungs are clear. There are no pleural effusions. The cardiomediastinal silhouette is within normal limits. There is no pneumothorax suspected. The bones and soft tissues are unremarkable. IMPRESSION: No acute cardiopulmonary findings. Reviewed, dictated and finalized at location A.
[2022-01-30 12:52] VITALS: BP 132/70; PULSE 74; RESP 16; TEMP 36.9; O2SAT 100
[2022-01-30 16:01] VITALS: BP 123/76; PULSE 75; RESP 16; TEMP 36.7; O2SAT 100
--- NOTE | 2022-01-30 16:13 | ECG_ITS ---
Measurements Intervals [place] Rate: 67 P: 53 [place]: 144 QRS: 44 QRSD: 85 T: 6 QT: 393 QTc: 415 Interpretive Statements SINUS RHYTHM WITH SINUS ARRHYTHMIA NORMAL ECG COMPARED TO ECG 12/15/2019 04:54:19 SINUS ARRHYTHMIA NOW PRESENT Electronically Signed On 01-31-2022 17:57:40 CDT by Junior Teresa M.D.
--- NOTE | 2022-01-30 16:14 | ED.GENADULT ---
HPI - General Adult General Chief complaint: Unspecified Stated complaint: left upper quad pain Time Seen by Provider: 01/30/22 16:03 Source: patient Mode of arrival: ambulatory Limitations: no limitations History of Present Illness HPI narrative: Pt presents with left lateral and anterior chest wall pain for several days. Pt says it is intermittent and can be reproduced with palpation and certain movements. Pt has a history of blood clots and is on xarelto so is worried about a PE. Onset (ago): day(s) (3) Location: chest (left lateral and anterior chest) Radiation: back Severity: moderate Quality: stabbing Pain Consistency: intermittent Relieving factors: none Exacerbating factors: movement Associated symptoms: cough Related Data Home Medications Medication Instructions Recorded Confirmed Xarelto 20 mg PO HS 08/19/19 01/01/20 Zyrtec 10 mg PO DAILY 08/19/19 01/01/20 alprazolam [Xanax] 0.25 mg PO BID PRN 08/19/19 01/01/20 atorvastatin 40 mg PO DAILY 08/19/19 01/01/20 cholecalciferol (vitamin D3) 1 unit PO DAILY 08/19/19 01/01/20 [Vitamin D3] doxycycline hyclate 100 mg PO DAILY 08/19/19 01/01/20 metoprolol succinate 25 mg PO DAILY 08/19/19 01/01/20 spironolactone 50 mg PO DAILY 08/19/19 01/01/20 pantoprazole 40 mg PO DAILY 12/15/19 01/01/20 Allergies Allergy/AdvReac Type Severity Reaction Status Date / Time mushroom Allergy Severe Swelling Verified 01/13/20 09:59 of Lip/Tongue/Throat cat dander Allergy Unknown Verified 01/13/20 09:59 sumatriptan Allergy Swelling Verified 01/13/20 09:59 of Lip/Tongue/Throat Review of Systems Review of Systems: All systems reviewed & are unremarkable except as noted in HPI and below PMFSH Past Medical History Medical History (Updated 01/30/22 @ 18:40 by Flaquito Chavez III, DO) Acute cholecystitis Anxiety DVT (deep venous thrombosis) History of DVT in Left common femoral vein found in June of 2019, treated with Xarelto. Repeat doppler ultrasound in September 2019 showed no DVT. Factor V Leiden History of DVT (deep vein thrombosis) History of heart attack STEMI in 06/2019 - cardiac cath with balloon angioplasty due to findings of thrombus in RPL branch. History of [place] (myocardial infarction) PFO (patent foramen ovale) Surgical History Surgical History History of cardiac catheterization June 2019 - STEMI. Thrombus in RPL branch, treated with balloon angioplasty. No other coronary artery disease noted. History of endometrial ablation August 2019 - Hysteroscopy with endometrial ablation. Status post laparoscopic cholecystectomy 12/17/2019 Family History Family History Father Brain cancer Hypertension Factor V Leiden Mother Hypertension Diabetes mellitus Sibling Factor V Leiden Social History Social History Smoking status: Never smoker Second hand tobacco smoke exposure: No Alcohol intake: current Drinks per week: 0 Alcohol use details: Rarely. Substance use: never Substance use type: does not use Additional living arrangements comments: Lives with . Has three children. 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 Gender identity (if verbalized by the patient): Female Spiritual care concerns: No Agree to blood products: Yes Exam Const: General: cooperative and healthy appearing Neck: Neck: full ROM, no lymphadenopathy and no meningeal signs Chest: Chest palpation & inspection: normal inspection of the chest and tenderness (tenderness over intercostal muscles of lower left ribs palpation reproduces) Resp: Effort & Inspection: normal respiratory effort and able to speak in complete sentences Auscultation: clear to auscultation bilaterally Cardio: Rate: regular rate Rh
[2022-01-30] MEDS: MORPHINE SULFATE (*CRX) 4 MG/ML INJ IV PUSH (16:36)
[2022-01-30 16:52] LABS: Basophils Percent Auto 0.7 % (0.2-1.2); Eosinophils Absolute Auto 0.1 K/mm3 (0-0.3); Eosinophils Percent Auto 1.2 % (0-4.4); Hematocrit 38.6 % (37.0-47.0); Hemoglobin 12.9 g/dL (12.0-15.0); Immature Granulocyte Absolute 0.02 K/mm3 (0.00-0.031); Immature Granulocyte Percent A 0.3 % (0-0.5); Lymphocytes Absolute Auto 1.79 K/mm3 (0.9-3.2); Lymphocytes Percent Auto 30.6 % (18.3-44.2); Mean Corpuscular HGB Conc 33.4 g/dl (32-36); Mean Corpuscular Hemoglobin 29.1 pg (26-34); Mean Corpuscular Volume 86.9 fl (80-100); Mean Platelet Volume 10.1 fl (7.4-10.4); Monocytes Absolute Auto 0.3 K/mm3 (0.1-0.6); Neutrophils Absolute Auto 3.6 K/mm3 (1.3-6.7); Neutrophils Percent Auto 62.2 % (45.5-73.1); Platelet Count Result 253 k/mm3 (150-375); Red Blood Count 4.44 M/mm3 (4.2-5.4); Red Cell Distribution Width 13.3 % (11.5-14.5); White Blood Count 5.9 K/mm3 (4.5-10.0)
[2022-01-30 17:02] LABS: INR 1.1; Prothrombin Time 13.8 Seconds (11.1-14.7)
[2022-01-30 17:03] LABS: Partial Thromboplastin Time 28.8 SECONDS (22.3-36.8)
[2022-01-30 17:05] LABS: D Dimer 0.42 ug/mL (<0.48)
[2022-01-30 17:06] LABS: Alanine Aminotransferase 32 U/L (4-35); Albumin Level 4.3 g/dL (3.5-5.1); Alkaline Phosphatase 92 U/L (38-126); Anion Gap 7 mmol/L (8-16); Aspartate Amino Transferase 34 U/L (14-36); Bilirubin,Total 0.3 mg/dL (0.2-1.3); Blood Urea Nitrogen 12 mg/dL (7-17); Calcium 8.6 mg/dL (8.4-10.2); Carbon Dioxide 26 mmol/L (22-30); Chloride 106 mmol/L (98-107); Estimated CRCL calculation 66 ml/min; Estimated Glomerular Filt Rate 60; Glucose 109 mg/dL (65-110); Potassium 3.5 mmol/L (3.4-5.0); Sodium 139 mmol/L (137-145)
[2022-01-30 18:42] VITALS: BP 135/78; PULSE 78; RESP 15; O2SAT 98
[2022-01-30 18:51] VITALS: BP 133/91; PULSE 58; RESP 18; TEMP 37.1; O2SAT 99
== END 2022-01-30 19:00 | disposition home or self-care (01) ==
PROVIDERS: Emergency Provider Emergency Medicine; PCP Internal Medicine
DX: R07.82 Intercostal pain (principal); F41.9 Anxiety disorder, unspecified; I25.2 Old myocardial infarction; D68.51 Activated protein C resistance; Z86.718 Personal history of other venous thrombosis and embolism
CPT/HCPCS: 36415; 71046; 71275; 80053; 85025; 85380; 85610; 85730; 93005; 96374; 99284; J2270; Q9967

== ENCOUNTER 2022-05-25 14:06 | Outpatient (CLI) | payer OTHER, SELFPAY ==
[2022-05-25 14:17] LABS: Basophils Percent Auto 0.6 % (0.2-1.2); Eosinophils Absolute Auto 0.1 K/mm3 (0-0.3); Eosinophils Percent Auto 1.9 % (0-4.4); Hematocrit 41.2 % (37.0-47.0); Hemoglobin 13.8 g/dL (12.0-15.0); Immature Granulocyte Absolute 0.01 K/mm3 (0.00-0.031); Immature Granulocyte Percent A 0.1 % (0-0.5); Lymphocytes Absolute Auto 1.58 K/mm3 (0.9-3.2); Lymphocytes Percent Auto 23.2 % (18.3-44.2); Mean Corpuscular HGB Conc 33.5 g/dl (32-36); Mean Corpuscular Hemoglobin 29.1 pg (26-34); Mean Corpuscular Volume 86.9 fl (80-100); Mean Platelet Volume 9.8 fl (7.4-10.4); Monocytes Absolute Auto 0.6 K/mm3 (0.1-0.6); Monocytes Percent Auto 8.2 % (2.6-8.5); Neutrophils Absolute Auto 4.5 K/mm3 (1.3-6.7); Platelet Count Result 270 k/mm3 (150-375); Red Blood Count 4.74 M/mm3 (4.2-5.4); Red Cell Distribution Width 12.7 % (11.5-14.5); White Blood Count 6.8 K/mm3 (4.5-10.0)
== END 2022-05-25 14:07 | disposition home or self-care (01) ==
LOC: ANHLAB 14:07
PROVIDERS: PCP Internal Medicine; Visit Provider Internal Medicine Hematology & Oncology
DX: I82.4Y2 Acute embolism and thrombosis of unspecified deep veins of left proximal lower extremity (principal)
CPT/HCPCS: 36415; 85025

== ENCOUNTER 2022-05-25 15:43 | Outpatient (CLI) | payer OTHER, SELFPAY ==
--- NOTE | ~2022-05-25 | US_ITS ---
EXAMINATION: US venous doppler [facility] DATE: 05/25/2022 16:17 INDICATION: Left lower limb pain. Acute deep vein thrombosis. TECHNIQUE: Grayscale ultrasound images without and with compression and Doppler ultrasound images of the left lower extremity veins were obtained. COMPARISON: Ultrasound 09/29/2019 FINDINGS: The visualized portions of left common femoral vein, profunda (deep) femoral vein, femoral vein, popl iteal vein, peroneal veins, posterior tibial veins, and greater saphenous vein outflow are patent. IMPRESSION: 1. No deep venous thrombosis. Reviewed, dictated and finalized at location A.
== END 2022-05-25 15:44 | disposition home or self-care (01) ==
PROVIDERS: PCP Internal Medicine; Visit Provider Internal Medicine Hematology & Oncology
DX: I82.4Y2 Acute embolism and thrombosis of unspecified deep veins of left proximal lower extremity (principal)
CPT/HCPCS: 36415; 85025; 93971

== ENCOUNTER 2023-01-08 06:20 | Day surgery (SDC) | payer OTHER, SELFPAY ==
[2022-11-13 10:21] VITALS: BMI 23.9
[2022-12-26 08:27] VITALS: BMI 23.8
--- NOTE | 2023-01-05 14:16 | PM.HPGS ---
History of Present Illness History of Present Illness Consent: Risks, benefits, and alternatives have been discussed and questions answered. Patient agrees to proceed with procedure. Chief complaint: Neoplasm Screening Narrative: Geri Monteiro is a 47 year old female who was referred for colon cancer screening. Review of Systems Review of Systems: All systems reviewed & are unremarkable except as noted in HPI and below PMFSH Past Medical History Medical History Acute cholecystitis Anxiety DVT (deep venous thrombosis) History of DVT in Left common femoral vein found in June of 2019, treated with Xarelto. Repeat doppler ultrasound in September 2019 showed no DVT. Factor V Leiden History of DVT (deep vein thrombosis) History of heart attack STEMI in 06/2019 - cardiac cath with balloon angioplasty due to findings of thrombus in RPL branch. History of [place] (myocardial infarction) PFO (patent foramen ovale) Surgical History Surgical History History of cardiac catheterization June 2019 - STEMI. Thrombus in RPL branch, treated with balloon angioplasty. No other coronary artery disease noted. History of endometrial ablation August 2019 - Hysteroscopy with endometrial ablation. Status post laparoscopic cholecystectomy 12/17/2019 Family History Family History Father Brain cancer Hypertension Factor V Leiden Mother Hypertension Diabetes mellitus Sibling Factor V Leiden Social History Social History Smoking status: Never smoker Second hand tobacco smoke exposure: No Alcohol intake: current Drinks per week: 0 Alcohol use details: Rarely. Substance use: never Substance use type: does not use Living arrangements: with family Additional living arrangements comments: Lives with . Has three children. 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 Gender identity (if verbalized by the patient): Female Spiritual care concerns: No Agree to blood products: Yes Meds Home Medications and Allergies Home Medications Medication Instructions Recorded Confirmed Type cetirizine 10 mg capsule (Zyrtec) 10 mg PO DAILY 08/19/19 01/08/23 History cholecalciferol (vitamin D3) 25 1 unit PO DAILY 08/19/19 01/08/23 History mcg (1,000 unit) capsule (Vitamin D3) rivaroxaban 20 mg tablet (Xarelto) 20 mg PO HS 08/19/19 01/08/23 History spironolactone 50 mg tablet 50 mg PO DAILY 08/19/19 01/08/23 History biotin 800 mcg tablet 800 mcg PO DAILY 12/26/22 01/08/23 History Allergies Allergy/AdvReac Type Severity Reaction Status Date / Time mushroom Allergy Severe Swelling Verified 01/08/23 06:49 of Lip/Tongue/Throat sumatriptan Allergy Hives Verified 01/08/23 06:49 Exam Const: General: alert Orientation/consciousness: patient oriented x3 Resp: Auscultation: clear to auscultation bilaterally Cardio: Rhythm: regular rhythm GI: GI Palp: Yes Soft to palpation and No Tenderness to palpation present (GI) Neuro: General: patient oriented x3 Assessment and Plan Assessment and plan (1) Colon cancer screening: Code(s): Z12.11 - Encounter for screening for malignant neoplasm of colon Status: Acute Assessment and Plan: Colonoscopy with possible biopsy or polypectomy or cautery or injection of substances.
[2023-01-08 06:40] VITALS: BP 119/78; PULSE 90; RESP 16; TEMP 36.5; O2SAT 100
--- NOTE | 2023-01-08 07:04 | WPDANESEPPF ---
Anes - Initial Pre Proc Eval Procedure: Operation Date: 01/08/23 07:30 Proposed Procedures p Screening Colonoscopy - Angel Cruz MD Date/Time: 01/08/23 07:04 Surgeon: Angel Cruz MD Pre Op Diagnosis: Neoplasm Screening Patient Data Age: 47 Gender: F Height: 1.75 m Weight: 70.3 kg Allergies Allergy/AdvReac Type Severity Reaction Status Date / Time mushroom Allergy Severe Swelling Verified 01/08/23 06:49 of Lip/Tongue/Throat sumatriptan Allergy Hives Verified 01/08/23 06:49 Home Medications Medication Instructions Recorded Confirmed Type cetirizine 10 mg capsule (Zyrtec) 10 mg PO DAILY 08/19/19 01/08/23 History cholecalciferol (vitamin D3) 25 1 unit PO DAILY 08/19/19 01/08/23 History mcg (1,000 unit) capsule (Vitamin D3) rivaroxaban 20 mg tablet (Xarelto) 20 mg PO HS 08/19/19 01/08/23 History spironolactone 50 mg tablet 50 mg PO DAILY 08/19/19 01/08/23 History biotin 800 mcg tablet 800 mcg PO DAILY 12/26/22 01/08/23 History Patient hx anesthesia problems: none Family hx anesthesia problems: none Results Review: All pre-operative results and documents have been reviewed as part of the pre-operative evaluation. [facility] Past Medical History Medical History Acute cholecystitis Anxiety DVT (deep venous thrombosis) History of DVT in Left common femoral vein found in June of 2019, treated with Xarelto. Repeat doppler ultrasound in September 2019 showed no DVT. Factor V Leiden History of DVT (deep vein thrombosis) History of heart attack STEMI in 06/2019 - cardiac cath with balloon angioplasty due to findings of thrombus in RPL branch. History of [place] (myocardial infarction) PFO (patent foramen ovale) Surgical History Surgical History History of cardiac catheterization June 2019 - STEMI. Thrombus in RPL branch, treated with balloon angioplasty. No other coronary artery disease noted. History of endometrial ablation August 2019 - Hysteroscopy with endometrial ablation. Status post laparoscopic cholecystectomy 12/17/2019 Family History Family History Father Brain cancer Hypertension Factor V Leiden Mother Hypertension Diabetes mellitus Sibling Factor V Leiden Social History Social History Smoking status: Never smoker Second hand tobacco smoke exposure: No Alcohol intake: current Drinks per week: 0 Alcohol use details: Rarely. Substance use: never Substance use type: does not use Living arrangements: with family Additional living arrangements comments: Lives with . Has three children. 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 Gender identity (if verbalized by the patient): Female Spiritual care concerns: No Agree to blood products: Yes Anes - Eval Final PreProcedure Day of Procedure 01/08/23 07:04 Patient weight: normal Heart: regular rate and rhythm Lungs: clear to auscultation and normal air movement Airway: Mallampati scale class II Neurological: alert and oriented Last oral intake: >/= 8 hours ASA classification: III Emergent: no Anesthetic plan: proceed Anesthesia type and monitoring: general GIVS and standard monitoring Results Review: All pre-operative results and documents have been reviewed as part of the pre-operative evaluation. Informed Consent: The patient's anesthetic plan and its attendant risks and benefits were discussed with the patient/family/POA. Questions were solicited and answers provided to the satisfaction of the patient/family/POA.
[2023-01-08] MEDS: LACTATED RINGERS 1,000 ML 150 ML IV CONT (07:15)
[2023-01-08 07:43] VITALS: BP 98/58; PULSE 76; RESP 14; O2SAT 99
[2023-01-08 07:53] VITALS: BP 98/64; PULSE 70; RESP 16; O2SAT 100
[2023-01-08 08:03] VITALS: BP 112/76; PULSE 74; RESP 18; O2SAT 100
--- NOTE | 2023-01-08 12:02 | WPDANESPN ---
Anes - Prog Note Post-Op Date/Time: 01/08/23 12:02 Cardiovascular status: normal Respiratory status: normal Airway patency: baseline Mental status: baseline Post-Op hydration status: normal Vital Signs: Last Vital Signs Temp 36.5 C 01/08/23 06:40 Pulse 74 01/08/23 08:03 Resp 18 01/08/23 08:03 BP 112/76 01/08/23 08:03 Pulse Ox 100 01/08/23 08:03 O2 Del Method Room Air 01/08/23 08:03 Pain Score (VAS): 0 I/O: Intake & Output 01/07/23 01/08/23 01/08/23 23:59 07:59 15:59 Intake Total 200 360 Balance 200 360 Post-procedural complaints: none Patient Feedback: Patient satisfied with anesthetic care. Other Findings: Patient vital signs back to baseline. Patient denies nausea and vomiting. Patient's pain under control. Patient OK for discharge.
== END 2023-01-08 08:24 | disposition home or self-care (01) ==
PROVIDERS: PCP Internal Medicine; Visit Provider Internal Medicine Gastroenterology
PROC: 0DJD8ZZ Inspection of Lower Intestinal Tract, Via Natural or Artificial Opening Endoscopic (ICD-10-PCS; CPT 45378; principal; 2023-01-08 07:30)
DX: Z12.11 Encounter for screening for malignant neoplasm of colon (principal)
CPT/HCPCS: 45378

== ENCOUNTER 2024-11-12 10:15 | Outpatient (CLI) | payer OTHER, SELFPAY ==
--- NOTE | ~2024-11-12 | XR_ITS ---
EXAMINATION: XR chest 2V DATE: 11/12/2024 10:35 INDICATION: Cough. Fever. TECHNIQUE: Frontal and lateral views of the chest were obtained. COMPARISON: Chest 2 views 01/30/2022, chest CT 01/30/2022 FINDINGS: There is mild scarring at the lung apices. No pleural effusion or pneumothorax. The heart s ize is normal. Surgical clips in the right upper quadrant are likely from cholecystectomy. IMPRESSION: 1. Stable mild scarring at the lung apices. Reviewed, dictated and finalized at location B. TRICAL TIMING DEVICE CALIBRATOR
--- OUTSIDE RECORDS SUMMARY | 2024-11-13 23:08 | XMS_ITS | Encounter Summary ---
Author Organization [facility] Address [address] [place] [address] Care Team Providers Care Cement Truck Driver Name Role Phone Shree Henry MD Primary Care Provider [phone] Encounter Details Date Type Department Care Team (Late st Contact Info) Description 10/28/2024 Telephone [facility] Cardiology [address] [place] [address] Mat Mirza MD [address] [id number] Social History Tobacco Use Types Packs/Day Years Used Date Smoking Tobacco: Never Smokeless Tobacco: Never Alcohol Use Standard Drinks/Week Comments Yes 3 (1 standard drink = 0.6 oz pur e alcohol) AUDIT-C Answer Date Recorded Frequency of Alcohol Consumption 2-4 times a sun07/25/2019 Average Number of Drinks Not on file 019 Frequency of Binge Drinking Not on file 01/2019 Personal Safety Answer Date Recorded Getting School Help Needed Not on file 11/19 Comments No Sex and Gender Information Value Date Recorded Sex Assigned at Not on file Legal Sex Female 12:39 PM MOBILE APPLICATION ENGINEER Gender Identity Female 06/29/2020 8:57 AM CDT Sexual Orientation Straight 06/29/2020 8: 57 AM CDT documented as of this encounter Miscellaneous Notes * Telephone Encounter - Delassus, Jackelyn K., RN - 10/28/2024 1:35 PM MOBILE APPLICATION ENGINEER Forwarded last note as requested. LE APPLICATION ENGINEER * Telephone Encounter - Thuy Garvey - 10/28/2024 1:28 PM CST Leti from Dr. Henry office (PCP) requesting most recent office visit note be faxed to their office. Thank you. Contact: LE APPLICATION ENGINEER documented in this encounter Plan of Treatment Not on file documented as of this encounter Visit Diagnoses Not on filedocumented in this encounter Care Teams Cement Truck Driver Relationship Specialty Start Date End Date Shree Henry MD PCP - General Internal Medicine 07/07/19 documented as of this encounter
--- OUTSIDE RECORDS SUMMARY | 2024-11-13 23:08 | XMS_ITS | Data Portability ---
Author Organization [place] [facility], Main Office Address [address] [place] [address] Assessment Encounter Date Assessment Date Assessment LastModified by Organization Details LastModified Time 03/06/2023 03/06/2023 Low-fat diet continue with current therapy follow-up in 6 months immunizations and screenings discussed ordered were appropriate patient agreeable preventive measures sunscreen seatbelts regular exercise etc. discussed [email or web address] Not available 04/22/2023 16:28:00 07/10/2023 07/10/2023 Will continue with current therapy will follow-up in 6 months [email or web address] Not available 07/15/2023 21:01:08 Plan of Treatment Reminders Order Date Submit Date Provider Last Modified By Organization Details Last Modified Time Details Appointments None recorded . Lab CBC w/ auto diff 023 03/06/20 23 MENDEZ Not available 3 19:13:36 CMP, serum or plasma 023 03/06/20 23 MENDEZ Not available 3 20:03:58 lipid panel, serum 023 03/06/20 23 MENDEZ Not available 3 20:04:01 Referral None recorded . Procedures None recorded . Surgeries None recorded . Imaging None recorded . Medication Orders None recorded . Patient TargetsNo targets recorded. Patient InstructionsNo instructions recorded. Reason for Referral None Reported. Results Created Date Observation Date Name Description Value Unit Range Abnormal Flag Note LastModifiedBy Organization Detail LastModifiedTime 02/14/20 22 02/13/2022 LIPID PANEL cholesterol 185 mg/dL 140-19 9 NIH FERNANDA NSUS RECOM MENDA TION FOR COLTEN STERO L: ADULT CHILD LOW RISK: <200 <170 LEÓN RLINE : <200- 239 ----- HIGH RISK: >240 >200 Not Available [facility] (Lab) [address] [place], [address], 02/13/2022 13:14:00 02/14/20 22 02/13/2022 LIPID PANEL triglyceride s 174 mg/dL 0-150 high NIH FERNANDA NSUS REPOR T RECOM MENDA TION FOR TRIGL YCERI LILLY: ADULT CHILD LOW RISK: <150 ----- BODER LINE: 150-1 99 ----- HIGH RISK: >200 ----- Not Available [facility] (Lab) [address] [place], [address], 02/13/2022 13:14:00 02/14/20 22 02/13/2022 LIPID PANEL HDL cholesterol 36 mg/dL 40- low Not Available [facility] (Lab) [address] [place], [address], 02/13/2022 13:14:00 02/14/20 22 02/13/2022 LIPID PANEL LDL cholesterol, calculated 114 mg/dL 0-130 NIH FERNANDA NSUS REPOR T RECOM MENDA TIONS FOR LDL: ADULT CHILD LOW RISK <130 <110 (OPTI MAL LDL) <100 ----- BORDE RLINE : 130-1 59 ----- HIGH RISK: >160 >130 A TRIGL YCERI DE RESUL T >400 INVAL IDATE S THE CALCU LATIO N FOR LDL FRACT IONAT ION - THE LDL RESUL T WILL NOT BE REPOR DELMER. Not Available [facility] (Lab) [address] [place], [address], 02/13/2022 13:14:00 02/14/20 22 02/13/2022 COMPR EHENS DONNY METAB OLIC PANEL sodium 135 mmol/ L 137-14 5 low Not Available [facility] (Lab) [address] [place], [address], 02/13/2022 13:13:58 02/14/20 22 02/13/2022 COMPR EHENS DONNY METAB OLIC PANEL potassium 4.4 mmol/ L 3.5-5. 1 Not Available [facility] (Lab) [address] [place], [address], 02/13/2022 13:13:58 02/14/20 22 02/13/2022 COMPR EHENS DONNY METAB OLIC PANEL chloride 103 mmol/ L 98-107 Not Available [facility] (Lab) [address] [place], [address], 02/13/2022 13:13:58 02/14/20 22 02/13/2022 COMPR EHENS DONNY METAB OLIC PANEL carbon dioxide 24 mmol/ L 22-30 Not Available [facility] (Lab) [address] [place], [address], 02/13/2022 13:13:58 02/14/20 22 02/13/2022 COMPR EHENS DONNY METAB OLIC PANEL anion gap 12.4 mmol/ L 14-22 low Not Available [facility] (Lab) [address] [place], [address], 02/13/2022 13:13:58 02/14/20 22 02/13/2022 COMPR EHENS DONNY METAB OLIC PANEL glucose 90 mg/dL 70-99 Not Available [facility] (Lab) [address] [place], [address], 02/13/2022 13:13:58 02/14/20 22 02/13/2022 COMPR EHENS DONNY METAB OLIC PANEL BUN 14 mg/dL 8-19 Not Available [facility] (Lab) [address] [place], [address], 02/13/2022 13:13:58 02/14/20 22 02/13/2022 COMPR EHENS DONNY METAB OLIC PANEL creatinine 1.00 mg/dL 0.66-1 .25 Not Available [facility] (Lab) [address] [place], [address], 02/13/2022 13:13:58 02/14/20 22 02/13/2022 COMPR EHENS DONNY METAB OLIC PANEL GFR 60 Refer ence Range : [facility] GFR Healt hy Adult : >60 mL/mi n/1.7 3 m2 Chron ic Kidne y Disea se: 15-60 mL/mi n/1.7 3 m2 Kidne y Failu re: <15/m L/min /1.73 m2 www.n iddk. [facility].g ov The MDRD study equat ion has not been valid ated in child kelli <18 years of age; pregn ant women ; the elder ly >85 years of age; or in some racia l or ethni c subgr oups, such as Lam nics. Outsi de the valid ated jb eters , estim ated GFR is less accur ate, requi ring clini vito judgm ent on a case- by-ca se basis . Clini vito inter preta tion for other races and ages must be made by the clini nolan. The MDRD study equat ion has not been valid ated for the evalu ation of serum creat inine relat ed to nutri julián l statu s or medic ation usage . For perso ns <18 years of age, a pedia tric GFR calcu lator is avail able on the [facility] websi te: https ://giovanny perez.oliva alvarez.o rg/pr ofess ional s/kdo qi/gf r_cal culat or Not Available [facility] (Lab) [address] [place], [address], 02/13/2022 13:13:58 02/14/20 22 02/13/2022 COMPR EHENS DONNY METAB OLIC PANEL alkaline phosphatase 95 U/L 38-126 Not Available [facility] (Lab) [address] [place], [address], 02/13/2022 13:13:58 02/14/20 22 02/13/2022 COMPR EHENS DONNY METAB OLIC PANEL alanine aminotransfe rase 24 U/L 0-35 Not Available [facility] (Lab) [address] [place], [address], 02/13/2022 13:13:58 02/14/20 22 02/13/2022 COMPR EHENS DONNY METAB OLIC PANEL aspartate aminotransfe rase 27 U/L 15-37 Not Available [facility] (Lab) [address] [place], [address], 02/13/2022 13:13:58 02/14/20 22 02/13/2022 COMPR EHENS DONNY METAB OLIC PANEL bilirubin, total 0.40 mg/dL 0.20-1 .30 Not Available [facility] (Lab) [address] [place], [address], 02/13/2022 13:13:58 02/14/20 22 02/13/2022 COMPR EHENS DONNY METAB OLIC PANEL calcium 8.9 mg/dL 8.4-10 .2 Not Available [facility] (Lab) [address] [place], [address], 02/13/2022 13:13:58 02/14/20 22 02/13/2022 COMPR EHENS DONNY METAB OLIC PANEL total protein 7.7 g/dL 6.3-8. 2 Not Available [facility] (Lab) [address] [place], [address], 02/13/2022 13:13:58 02/14/20 22 02/13/2022 COMPR EHENS DONNY METAB OLIC PANEL albumin 4.4 g/dL 3.4-5. 0 Not Available [facility] (Lab) [address] [place], [address], 02/13/2022 13:13:58 02/14/20 22 02/13/2022 COMPR EHENS DONNY METAB OLIC PANEL globulin 3.3 g/dL 2.6-4. 2 Not Available [facility] (Lab) [address] [place], [address], 02/13/2022 13:13:58 02/14/20 22 02/13/2022 COMPR EHENS DONNY METAB OLIC PANEL A/G ratio 1.3 ratio 1.0-2. 0 Not Available [facility] (Lab) [address] [place], [address], 02/13/2022 13:13:58 05/29/20 23 05/29/2023 CBC/C OMPLE TE BLD COUNT W/DIF F white blood cells 5.5 x10'3 /uL 4.2-10 .8 Not Available [facility] (Lab) [address] [place], [address], 05/29/2023 19:13:35 05/29/20 23 05/29/2023 CBC/C OMPLE TE BLD COUNT W/DIF F red blood cells 4.78 x10'6 /uL 3.80-5 .20 Not Available [facility] (Lab) [address] [place], [address], 05/29/2023 19:13:35 05/29/20 23 05/29/2023 CBC/C OMPLE TE BLD COUNT W/DIF F hemoglobin 14.0 g/dL 12.0-1 5.6 Not Available [facility] (Lab) [address] [place], [address], 05/29/2023 19:13:35 05/29/20 23 05/29/2023 CBC/C OMPLE TE BLD COUNT W/DIF F hematocrit 42.1 % 35.7-4 5.7 Not Available [facility] (Lab) [address] [place], [address], 05/29/2023 19:13:35 05/29/20 23 05/29/2023 CBC/C OMPLE TE BLD COUNT W/DIF F mean red cell volume 88.1 fL 82.0-9 9.0 Not Available [facility] (Lab) [address] [place], [address], 05/29/2023 19:13:35 05/29/20 23 05/29/2023 CBC/C OMPLE TE BLD COUNT W/DIF F mean red cell hemoglobin 29.3 pg 27.0-3 3.0 Not Available [facility] (Lab) [address] [place], [address], 05/29/2023 19:13:35 05/29/20 23 05/29/2023 CBC/C OMPLE TE BLD COUNT W/DIF F mean RBC HGB concentratio n 33.3 g/dL 31.0-3 6.0 Not Available [facility] (Lab) [address] [place], [address], 05/29/2023 19:13:35 05/29/20 23 05/29/2023 CBC/C OMPLE TE BLD COUNT W/DIF F red cell distribution width 12.5 % 11.8-1 5.5 Not Available [facility] (Lab) [address] [place], [address], 05/29/2023 19:13:35 05/29/20 23 05/29/2023 CBC/C OMPLE TE BLD COUNT W/DIF F platelets 248 x10'3 /uL 150-40 0 Not Available [facility] (Lab) [address] [place], [address], 05/29/2023 19:13:35 05/29/20 23 05/29/2023 CBC/C OMPLE TE BLD COUNT W/DIF F mean platelet volume 10.2 fL 9.0-12 .4 Not Available [facility] (Lab) [address] [place], [address], 05/29/2023 19:13:35 05/29/20 23 05/29/2023 CBC/C OMPLE TE BLD COUNT W/DIF F neutrophils 63.0 % 39.0-7 2.0 Not Available [facility] (Lab) [address] [place], [address], 05/29/2023 19:13:35 05/29/20 23 05/29/2023 CBC/C OMPLE TE BLD COUNT W/DIF F lymphocytes 28.9 % 16.0-4 7.0 Not Available [facility] (Lab) [address] [place], [address], 05/29/2023 19:13:35 05/29/20 23 05/29/2023 CBC/C OMPLE TE BLD COUNT W/DIF F monocytes 6.0 % 5.0-12 .0 Not Available [facility] (Lab) [address] [place], [address], 05/29/2023 19:13:35 05/29/20 23 05/29/2023 CBC/C OMPLE TE BLD COUNT W/DIF F eosinophils 1.5 % 1.0-7. 0 Not Available [facility] (Lab) [address] [place], [address], 05/29/2023 19:13:35 05/29/20 23 05/29/2023 CBC/C OMPLE TE BLD COUNT W/DIF F basophils 0.4 % 0.0-2. 0 Not Available [facility] (Lab) [address] [place], [address], 05/29/2023 19:13:35 05/29/20 23 05/29/2023 CBC/C OMPLE TE BLD COUNT W/DIF F immature granulocytes 0.2 % 0.00-0 .50 Not Available [facility] (Lab) [address] [place], [address], 05/29/2023 19:13:35 05/29/20 23 05/29/2023 CBC/C OMPLE TE BLD COUNT W/DIF F neutrophils, absolute count 3.47 x10'3 /uL 1.5-8. 0 Not Available [facility] (Lab) [address] [place], [address], 05/29/2023 19:13:35 05/29/20 23 05/29/2023 CBC/C OMPLE TE BLD COUNT W/DIF F lymphocytes, absolute count 1.59 x10'3 /uL 1.07-3 .43 Not Available [facility] (Lab) [address] [place], [address], 05/29/2023 19:13:35 05/29/2005/29/2023 CBC/C OMPLE TE BLD COUNT W/DIF F monocytes, absolute count 0.33 x10'3 /uL 0.29-0 .99 Not Available [facility] (Lab) [address] [place], [address], 05/29/2023 19:13:35 05/29/20 23 05/29/2023 CBC/C OMPLE TE BLD COUNT W/DIF F eosinophils, absolute count 0.08 x10'3 /uL 0.02-0 .53 Not Available [facility] (Lab) [address] [place], [address], 05/29/2023 19:13:35 05/29/20 23 05/29/2023 CBC/C OMPLE TE BLD COUNT W/DIF F basophils, absolute count 0.02 x10'3 /uL 0.01-0 .08 Not Available [facility] (Lab) [address] [place], [address], 05/29/2023 19:13:35 05/29/20 23 05/29/2023 CBC/C OMPLE TE BLD COUNT W/DIF F immature granulocytes ,absolute 0.01 x10'3 /uL 0.00-0 .05 Not Available [facility] (Lab) [address] [place], [address], 05/29/2023 19:13:35 05/29/20 23 05/29/2023 CBC/C OMPLE TE BLD COUNT W/DIF F nucleated red blood cells 0.0 % -0 Not Available [facility] (Lab) [address] [place], [address], 05/29/2023 19:13:35 05/29/20 23 05/29/2023 CBC/C OMPLE TE BLD COUNT W/DIF F NRBC# 0.00 x10'3 /uL Not Available [facility] (Lab) [address] [place], [address], 05/29/2023 19:13:35 05/29/20 23 05/29/2023 COMPR EHENS DONNY METAB OLIC PANEL sodium 137 mmol/ L 137-14 5 Not Available [facility] (Lab) [address] [place], [address], 05/29/2023 20:03:58 05/29/20 23 05/29/2023 COMPR EHENS DONNY METAB OLIC PANEL potassium 4.1 mmol/ L 3.5-5. 1 Not Available [facility] (Lab) [address] [place], [address], 05/29/2023 20:03:58 05/29/20 23 05/29/2023 COMPR EHENS DONNY METAB OLIC PANEL chloride 101 mmol/ L 98-107 Not Available [facility] (Lab) [address] [place], [address], 05/29/2023 20:03:58 05/29/20 23 05/29/2023 COMPR EHENS DONNY METAB OLIC PANEL carbon dioxide 28 mmol/ L 22-30 Not Available [facility] (Lab) [address] [place], [address], 05/29/2023 20:03:58 05/29/20 23 05/29/2023 COMPR EHENS DONNY METAB OLIC PANEL anion gap 12.1 mmol/ L 14-22 low Not Available [facility] (Lab) [address] [place], [address], 05/29/2023 20:03:58 05/29/20 23 05/29/2023 COMPR EHENS DONNY METAB OLIC PANEL glucose 95 mg/dL 70-99 Not Available [facility] (Lab) [address] [place], [address], 05/29/2023 20:03:58 05/29/20 23 05/29/2023 COMPR EHENS DONNY METAB OLIC PANEL BUN 13 mg/dL 8-19 Not Available [facility] (Lab) [address] [place], [address], 05/29/2023 20:03:58 05/29/20 23 05/29/2023 COMPR EHENS DONNY METAB OLIC PANEL creatinine 0.98 mg/dL 0.66-1 .25 Not Available [facility] (Lab) [address] [place], [address], 05/29/2023 20:03:58 05/29/20 23 05/29/2023 COMPR EHENS DONNY METAB OLIC PANEL GFR >60 Refer ence Range : [facility] GFR Healt hy Adult : >60 mL/mi n/1.7 3 m2 Chron ic Kidne y Disea se: 15-60 mL/mi n/1.7 3 m2 Kidne y Failu re: <15/m L/min /1.73 m2 www.n iddk. nih.g ov The MDRD study equat ion has not been valid ated in child kelli <18 years of age; pregn ant women ; the elder ly >85 years of age; or in some racia l or ethni c subgr oups, such as Hisma nics. Outsi de the valid ated jb eters , estim ated GFR is less accur ate, requi ring clini vito judgm ent on a case- by-ca se basis . Clini vito inter preta tion for other races and ages must be made by the clini nolan. The MDRD study equat ion has not been valid ated for the evalu ation of serum creat inine relat ed to nutri julián l statu s or medic ation usage . For perso ns <18 years of age, a pedia tric GFR calcu lator is avail able on the [facility] websi te: https ://giovanny w.oliva talamantesy.o rg/pr ofess ional s/kdo qi/gf r_cal culat or Not Available [facility] (Lab) [address] [place], [address], 05/29/2023 20:03:58 05/29/20 23 05/29/2023 COMPR EHENS DONNY METAB OLIC PANEL alkaline phosphatase 80 U/L 38-126 Not Available [facility] (Lab) [address] [place], [address], 05/29/2023 20:03:58 05/29/20 23 05/29/2023 COMPR EHENS DONNY METAB OLIC PANEL alanine aminotransfe rase 24 U/L 0-35 Not Available [facility] (Lab) [address] [place], [address], 05/29/2023 20:03:58 05/29/20 23 05/29/2023 COMPR EHENS DONNY METAB OLIC PANEL aspartate aminotransfe rase 28 U/L 15-37 Not Available [facility] (Lab) [address] [place], [address], 05/29/2023 20:03:58 05/29/20 23 05/29/2023 COMPR EHENS DONNY METAB OLIC PANEL bilirubin, total 0.30 mg/dL 0.20-1 .30 Not Available [facility] (Lab) [address] [place], [address], 05/29/2023 20:03:58 05/29/20 23 05/29/2023 COMPR EHENS DONNY METAB OLIC PANEL calcium 9.3 mg/dL 8.4-10 .2 Not Available [facility] (Lab) [address] [place], [address], 05/29/2023 20:03:58 05/29/20 23 05/29/2023 COMPR EHENS DONNY METAB OLIC PANEL total protein 8.3 g/dL 6.3-8. 2 high Not Available [facility] (Lab) [address] [place], [address], 05/29/2023 20:03:58 05/29/20 23 05/29/2023 COMPR EHENS DONNY METAB OLIC PANEL albumin 4.8 g/dL 3.4-5. 0 Not Available [facility] (Lab) [address] [place], [address], 05/29/2023 20:03:58 05/29/20 23 05/29/2023 COMPR EHENS DONNY METAB OLIC PANEL globulin 3.5 g/dL 2.6-4. 2 Not Available [facility] (Lab) [address] [place], [address], 05/29/2023 20:03:58 05/29/20 23 05/29/2023 COMPR EHENS DONNY METAB OLIC PANEL A/G ratio 1.4 ratio 1.0-2. 0 Not Available [facility] (Lab) [address] [place], [address], 05/29/2023 20:03:58 05/29/20 23 05/29/2023 LIPID PANEL cholesterol 195 mg/dL 140-19 9 NIH FERNANDA NSUS RECOM MENDA TION FOR COLTEN STERO L: ADULT CHILD LOW RISK: <200 <170 BORDE RLINE : <200- 239 ----- HIGH RISK: >240 >200 Not Available [facility] (Lab) [address] [place], [address], 05/29/2023 20:04:01 05/29/20 23 05/29/2023 LIPID PANEL triglyceride s 231 mg/dL 0-150 high NIH FERNANDA NSUS REPOR T RECOM MENDA TION FOR TRIGL YCERI LILLY: ADULT CHILD LOW RISK: <150 ----- BODER LINE: 150-1 99 ----- HIGH RISK: >200 ----- Not Available [facility] (Lab) [address] [place], [address], 05/29/2023 20:04:01 05/29/20 23 05/29/2023 LIPID PANEL HDL cholesterol 35 mg/dL 40- low Not Available [facility] (Lab) [address] [place], [address], 05/29/2023 20:04:01 05/29/20 23 05/29/2023 LIPID PANEL LDL cholesterol, calculated 114 mg/dL 0-130 NIH FERNANDA NSUS REPOR T RECOM MENDA TIONS FOR LDL: ADULT CHILD LOW RISK <130 <110 (OPTI MAL LDL) <100 ----- LEÓN RLINE : 130-1 59 ----- HIGH RISK: >160 >130 A TRIGL YCERI DE RESUL T >400 INVAL IDATE S THE CALCU LATIO N FOR LDL FRACT IONAT ION - THE LDL RESUL T WILL NOT BE REPOR DELMER. Not Available [facility] (Lab) [address] [place], [address], 05/29/2023 20:04:01 01/30/20 24 01/30/2024 CBC/C OMPLE TE BLD COUNT W/DIF F white blood cells 4.9 x10'3 /uL 4.2-10 .8 Not Available [facility] (Lab) [address] [place], [address], 01/30/2024 13:10:37 01/30/20 24 01/30/2024 CBC/C OMPLE TE BLD COUNT W/DIF F red blood cells 4.51 x10'6 /uL 3.80-5 .20 Not Available [facility] (Lab) [address] [place], [address], 01/30/2024 13:10:37 01/30/20 24 01/30/2024 CBC/C OMPLE TE BLD COUNT W/DIF F hemoglobin 13.6 g/dL 12.0-1 5.6 Not Available [facility] (Lab) [address] [place], [address], 01/30/2024 13:10:37 01/30/20 24 01/30/2024 CBC/C OMPLE TE BLD COUNT W/DIF F hematocrit 40.3 % 35.7-4 5.7 Not Available [facility] (Lab) [address] [place], [address], 01/30/2024 13:10:37 01/30/20 24 01/30/2024 CBC/C OMPLE TE BLD COUNT W/DIF F mean red cell volume 89.4 fL 82.0-9 9.0 Not Available [facility] (Lab) [address] [place], [address], 01/30/2024 13:10:37 01/30/20 24 01/30/2024 CBC/C OMPLE TE BLD COUNT W/DIF F mean red cell hemoglobin 30.2 pg 27.0-3 3.0 Not Available [facility] (Lab) [address] [place], [address], 01/30/2024 13:10:37 01/30/20 24 01/30/2024 CBC/C OMPLE TE BLD COUNT W/DIF F mean RBC HGB concentratio n 33.7 g/dL 31.0-3 6.0 Not Available [facility] (Lab) [address] [place], [address], 01/30/2024 13:10:37 01/30/20 24 01/30/2024 CBC/C OMPLE TE BLD COUNT W/DIF F red cell distribution width 13.2 % 11.8-1 5.5 Not Available [facility] (Lab) [address] [place], [address], 01/30/2024 13:10:37 01/30/20 24 01/30/2024 CBC/C OMPLE TE BLD COUNT W/DIF F platelets 243 x10'3 /uL 150-40 0 Not Available [facility] (Lab) [address] [place], [address], 01/30/2024 13:10:37 01/30/20 24 01/30/2024 CBC/C OMPLE TE BLD COUNT W/DIF F mean platelet volume 10.1 fL 9.0-12 .4 Not Available [facility] (Lab) [address] [place], [address], 01/30/2024 13:10:37 01/30/20 24 01/30/2024 CBC/C OMPLE TE BLD COUNT W/DIF F neutrophils 61.6 % 39.0-7 2.0 Not Available [facility] (Lab) [address] [place], [address], 01/30/2024 13:10:37 01/30/20 24 01/30/2024 CBC/C OMPLE TE BLD COUNT W/DIF F lymphocytes 28.2 % 16.0-4 7.0 Not Available [facility] (Lab) [address] [place], [address], 01/30/2024 13:10:37 01/30/20 24 01/30/2024 CBC/C OMPLE TE BLD COUNT W/DIF F monocytes 7.2 % 5.0-12 .0 Not Available [facility] (Lab) [address] [place], [address], 01/30/2024 13:10:37 01/30/20 24 01/30/2024 CBC/C OMPLE TE BLD COUNT W/DIF F eosinophils 2.0 % 1.0-7. 0 Not Available [facility] (Lab) [address] [place], [address], 01/30/2024 13:10:37 01/30/20 24 01/30/2024 CBC/C OMPLE TE BLD COUNT W/DIF F basophils 0.8 % 0.0-2. 0 Not Available [facility] (Lab) [address] [place], [address], 01/30/2024 13:10:37 01/30/20 24 01/30/2024 CBC/C OMPLE TE BLD COUNT W/DIF F immature granulocytes 0.2 % 0.00-0 .50 Not Available [facility] (Lab) [address] [place], [address], 01/30/2024 13:10:37 01/30/20 24 01/30/2024 CBC/C OMPLE TE BLD COUNT W/DIF F neutrophils, absolute count 3.01 x10'3 /uL 1.5-8. 0 Not Available [facility] (Lab) [address] [place], [address], 01/30/2024 13:10:37 01/30/20 24 01/30/2024 CBC/C OMPLE TE BLD COUNT W/DIF F lymphocytes, absolute count 1.38 x10'3 /uL 1.07-3 .43 Not Available [facility] (Lab) [address] [place], [address], 01/30/2024 13:10:37 01/30/20 24 01/30/2024 CBC/C OMPLE TE BLD COUNT W/DIF F monocytes, absolute count 0.35 x10'3 /uL 0.29-0 .99 Not Available [facility] (Lab) [address] [place], [address], 01/30/2024 13:10:37 01/30/20 24 01/30/2024 CBC/C OMPLE TE BLD COUNT W/DIF F eosinophils, absolute count 0.10 x10'3 /uL 0.02-0 .53 Not Available [facility] (Lab) [address] [place], [address], 01/30/2024 13:10:37 01/30/20 24 01/30/2024 CBC/C OMPLE TE BLD COUNT W/DIF F basophils, absolute count 0.04 x10'3 /uL 0.01-0 .08 Not Available [facility] (Lab) [address] [place], [address], 01/30/2024 13:10:37 01/30/20 24 01/30/2024 CBC/C OMPLE TE BLD COUNT W/DIF F immature granulocytes ,absolute 0.01 x10'3 /uL 0.00-0 .05 Not Available [facility] (Lab) [address] [place], [address], 01/30/2024 13:10:37 01/30/20 24 01/30/2024 CBC/C OMPLE TE BLD COUNT W/DIF F nucleated red blood cells 0.0 % -0 Not Available [facility] (Lab) [address] [place], [address], 01/30/2024 13:10:37 01/30/20 24 01/30/2024 CBC/C OMPLE TE BLD COUNT W/DIF F NRBC# 0.00 x10'3 /uL Not Available [facility] (Lab) [address] [place], [address], 01/30/2024 13:10:37 01/30/20 24 01/30/2024 COMPR EHENS DONNY METAB OLIC PANEL sodium 138 mmol/ L 137-14 5 Not Available [facility] (Lab) [address] [place], [address], 01/30/2024 16:39:22 01/30/20 24 01/30/2024 COMPR EHENS DONNY METAB OLIC PANEL potassium 4.3 mmol/ L 3.5-5. 1 Not Available [facility] (Lab) [address] [place], [address], 01/30/2024 16:39:22 01/30/20 24 01/30/2024 COMPR EHENS DONNY METAB OLIC PANEL chloride 105 mmol/ L 98-107 Not Available [facility] (Lab) [address] [place], [address], 01/30/2024 16:39:22 01/30/20 24 01/30/2024 COMPR EHENS DONNY METAB OLIC PANEL carbon dioxide 27 mmol/ L 22-30 Not Available [facility] (Lab) [address] [place], [address], 01/30/2024 16:39:22 01/30/20 24 01/30/2024 COMPR EHENS DONNY METAB OLIC PANEL anion gap 10.3 mmol/ L 14-22 low Not Available [facility] (Lab) [address] [place], [address], 01/30/2024 16:39:22 01/30/20 24 01/30/2024 COMPR EHENS DONNY METAB OLIC PANEL glucose 87 mg/dL 70-99 Not Available [facility] (Lab) [address] [place], [address], 01/30/2024 16:39:22 01/30/20 24 01/30/2024 COMPR EHENS DONNY METAB OLIC PANEL BUN 15 mg/dL 8-19 Not Available [facility] (Lab) [address] [place], [address], 01/30/2024 16:39:22 01/30/20 24 01/30/2024 COMPR EHENS DONNY METAB OLIC PANEL creatinine 0.95 mg/dL 0.66-1 .25 Not Available [facility] (Lab) [address] [place], [address], 01/30/2024 16:39:22 01/30/20 24 01/30/2024 COMPR EHENS DONNY METAB OLIC PANEL GFR >60 Refer ence Range : [place] [facility] GFR Healt hy Adult : >60 mL/mi n/1.7 3 m2 Chron ic Kidne y Disea se: 15-60 mL/mi n/1.7 3 m2 Kidne y Failu re: <15/m L/min /1.73 m2 [email or web address] The MDRD study equat ion has not been valid ated in child kelli <18 years of age; pregn ant women ; the elder ly >85 years of age; or in some racia l or ethni c subgr oups, such as Hispa nics. Outsi de the valid ated jb eters , estim ated GFR is less accur ate, requi ring clini vito judgm ent on a case- by-ca se basis . Clini vito inter preta tion for other races and ages must be made by the clini nolan. The MDRD study equat ion has not been valid ated for the evalu ation of serum creat inine relat ed to nutri julián l statu s or medic ation usage . For perso ns <18 years of age, a pedia tric GFR calcu lator is avail able on the [facility] websi te: [email or web address] :[email or web address] rg/pr ofess ional s/kdo qi/gf r_cal culat or Not Available [facility] (Lab) [address] [place], [address], 01/30/2024 16:39:22 01/30/20 24 01/30/2024 COMPR EHENS DONNY METAB OLIC PANEL alkaline phosphatase 73 U/L 38-126 Not Available [facility] (Lab) [address] [place], [address], 01/30/2024 16:39:22 01/30/20 24 01/30/2024 COMPR EHENS DONNY METAB OLIC PANEL alanine aminotransfe rase 26 U/L 0-35 Not Available [facility] (Lab) [address] [place], [address], 01/30/2024 16:39:22 01/30/20 24 01/30/2024 COMPR EHENS DONNY METAB OLIC PANEL aspartate aminotransfe rase 29 U/L 15-37 Not Available [facility] (Lab) [address] [place], [address], 01/30/2024 16:39:22 01/30/20 24 01/30/2024 COMPR EHENS DONNY METAB OLIC PANEL bilirubin, total 0.50 mg/dL 0.20-1 .30 Not Available [facility] (Lab) [address] [place], [address], 01/30/2024 16:39:22 01/30/20 24 01/30/2024 COMPR EHENS DONNY METAB OLIC PANEL calcium 9.1 mg/dL 8.4-10 .2 Not Available [facility] (Lab) [address] [place], [address], 01/30/2024 16:39:22 01/30/20 24 01/30/2024 COMPR EHENS DONNY METAB OLIC PANEL total protein 7.2 g/dL 6.3-8. 2 Not Available [facility] (Lab) [address] [place], [address], 01/30/2024 16:39:22 01/30/20 24 01/30/2024 COMPR EHENS DONNY METAB OLIC PANEL albumin 4.2 g/dL 3.4-5. 0 Not Available [facility] (Lab) [address] [place], [address], 01/30/2024 16:39:22 01/30/20 24 01/30/2024 COMPR EHENS DONNY METAB OLIC PANEL globulin 3.0 g/dL 2.6-4. 2 Not Available [facility] (Lab) [address] [place], [address], 01/30/2024 16:39:22 01/30/20 24 01/30/2024 COMPR EHENS DONNY METAB OLIC PANEL A/G ratio 1.4 ratio 1.0-2. 0 Not Available [facility] ([facility]) [address] [place], [address], 01/30/2024 16:39:22 05/25/20 22 05/25/2022 US, doppl er, venou s No observ ation record ed. [id number] [facility] [address], [place], [address], 12/20/2022 05:06:32 Result Notes None recorded. Problems Name Problem SNOMED Code Status Onset Date Resolution Date Notes Provider Name and Address Organization Details Recorded Time Sunburn of first degree 640776771 Completed Not Available [facility] 04:52:58 Patent foramen ovale 402802631 Active 2019 could not be closed [facility] November 2019 Not Available [facility] 3 08:27:20 Heterozy gous Factor V Leiden mutation 794547385 Active 2018 see Oncology note 2016 Not Available [facility] 3 08:27:20 Bronchit is 64932367 Completed Not Available [facility] 3 04:52:58 Dyslipid emia 546117315 Active 2019 Not Available [facility] 3 08:27:21 Viral syndrome 339258820 Completed Not Available [facility] 3 04:52:58 Anxiety 22268040 Active Not Available [facility] 3 08:27:21 Coronary arterios clerosis 21952157 Active 2018 balloon angiopla [facility] 2018. Normal LV function Not Available [facility] 3 08:27:21 Disorder of skin 12434780 Completed Not Available [facility] 3 04:52:59 Problem Notes None recorded. Procedures Surgical History Date Name Laterality Status Provider Name and Address Organization Details Recorded Time 01/09/20 23 Colonoscopy completed DULCE MARIA Mar[place] [facility] [place] [employer] [facility] 03/06/2023 15:24:38 05/06/20 21 Most Recent Mammogram completed Not Available [facility] 12/20/2022 04:43:10 12/28/19 20 cholecystectomy completed Not Available [facility] 12/20/2022 04:43:13 07/07/20 19 Cardiovascular Procedure completed Not Available [facility] 12/20/2022 04:43:13 excision of lymph node completed Not Available [facility] 12/20/2022 04:43:13 destruction of lesion of cervix completed Not Available [facility] 12/20/2022 04:43:13 Ablation completed Not Available [facility] 12/20/2022 04:43:13 Imaging Results Imaging Date Name Status LastModified by Organiz ation Details LastModified Time 05/25/2022 US, doppler, venous completed [id number] [address] [place], [place] [address] [facility] [address], [place], [address], 12/20/2022 05:06:32 Procedure Notes None recorded. Medical Equipment None Reported. Allergies Allergen ID Allergen Name Allergen Category Reaction Reaction Severity Criticality Documentation Date Start Date Code Code System Note Provider Name and Address Organization Details Recorded Time 8663 sumatript an medicatio n facial swelling Not available Not available 12/20/2022 58991 RxNorm Not Available [facility] 3 05:06:04 8665 amitripty line medicatio n Not available Not available Not available 12/20/2022 704 RxNorm Not Available [facility] 3 05:06:04 Medications Name Sig Start Date Stop Date Status Note LastModified by Organization Details LastModified Time cyclobenz aprine 10 mg tablet TAKE 1 TABLET BY MOUTH THREE TIMES DAILY 03/02 completed Not Available Not Available Not Available amoxicill in 500 mg capsule Take 1 capsule 3 times a day by oral route for 7 days. active Not Available Not Available No t Available atorvasta tin 40 mg tablet TK 2 TS PO QAM 08/02 completed Not Available Not Available Not Available prednison e 10 mg tablet Take by oral route. take [id number], [id number], [id number] active Not Available Not Available No t Available ketoconaz ole 2 % shampoo active Not Available Not Available Not Available cetirizin e 10 mg tablet TK 1 T PO QD active Not Available Not Available No t Available azithromy griselda 250 mg tablet Take 2 TABLEts the first day then 1 a day until gone 05/07 completed Not Available Not Available Not Available fluconazo le 150 mg tablet 04/20 completed Not Available Not Available Not Available benzonata te 200 mg capsule Take 1 capsule 3 times a day by oral route as needed. active Not Available Not Available No t Available valacyclo vir 1 gram tablet TK 1 T PO TID FOR 7 DAYS 05/24 completed Not Available Not Available Not Available hydrocodo ne 5 mg-acetam inophen 325 mg tablet TAKE 1 TABLET BY MOUTH EVERY 6 HOURS NEEDED FOR PAIN 03/02 completed Not Available Not Available Not Available prednison e 20 mg tablet 3 tablets x 3 days, 2 tablets x 3 days, 1 tablet x 3 days 11/29 completed Not Available Not Available Not Available spironola ctone 100 mg tablet TAKE 1 TABLET BY MOUTH DAILY active Not Available Not Available No t Available clopidogr el 75 mg tablet waiting to finish prasugel 10mg. Currentl y on last 30 day supply 11/20/19 20-EG 12/10 completed Not Available Not Available Not Available ciproflox acin 500 mg tablet 04/20 completed Not Available Not Available Not Available clindamyc in 1 %-benzoyl peroxide 5 % topical gel APPLY TO PIMPLES ON FACE DAILY NEEDED 07/10 completed Not Available Not Available Not Available aspirin 81 mg tablet,de layed release TK 1 T PO D active Not Available Not Available No t Available doxycycli ne monohydra te 100 mg tablet Take 1 tablet by oral route. 02/14 completed Not Available Not Available Not Available tramadol 50 mg tablet TAKE 1 TABLET BY MOUTH EVERY 6 HOURS NEEDED 07/10 completed Not Available Not Available Not Available amoxicill in 500 mg tablet Take 1 tablet 3 times a day by oral route for 7 days. active Not Available Not Available No t Available oxycodone -acetamin ophen 5 mg-325 mg tablet TK 1 T PO Q 6 H PRN active Not Available Not Available No t Available amoxicill in 875 mg tablet active Not Available Not Available Not Available alprazola m 0.25 mg tablet TAKE 1 TABLET BY MOUTH THREE TIMES DAILY active Not Available Not Available No t Available doxycycli ne monohydra te 100 mg capsule TAKE 1 CAPSULE DAILY active Not Available Not Available No t Available pantopraz ole 40 mg tablet,de layed release Take 1 tablet every day by oral route. 04/13 completed Not Available Not Available Not Available oseltamiv ir 75 mg capsule 12/10 completed Not Available Not Available Not Available prednison e 50 mg tablet 11/29 completed Not Available Not Available Not Available polymyxin B sulfate 10,000 unit-trim ethoprim 1 mg/mL eye drops 05/07 completed Not Available Not Available Not Available norgestim ate-ethin yl estradiol 0.18 mg/0.215m g/0.25mg- 35 mcg(28)ta blet 10/14 completed Not Available Not Available Not Available monteluka st 10 mg tablet TAKE 1 TABLET DAILY DIRECTED active Not Available Not Available No t Available codeine 10 mg-guaife nesin 100 mg/5 mL oral liquid TAKE 10 ML BY MOUTH EVERY 6 HOURS NEEDED FOR COUGH 02/14 completed Not Available Not Available Not Available mupirocin 2 % topical ointment 05/07 completed Not Available Not Available Not Available metoprolo l succinate ER 25 mg tablet,ex tended release 24 hr Take 1 tablet every day by oral route for 30 days. 11/07 completed Not Available Not Available Not Available ibuprofen 600 mg tablet TK ONE T PO TID PRN 06/20 completed Not Available Not Available Not Available methylpre dnisolone 4 mg tablets in a dose pack 10/14 completed Not Available Not Available Not Available Vitamin D2 1,250 mcg (50,000 unit) capsule TK ONE C PO EVERY WEEK 11/30 completed Not Available Not Available Not Available norethind lake (contrace ptive) 0.35 mg tablet TK 1 T PO QD 07/17 completed stopped in hosp Not Available Not Available Not Available ondansetr on 4 mg disintegr ating tablet DIS 1 T PO Q 6 H PRN. active Not Available Not Available No t Available fluticaso ne propionat e 50 mcg/actua tion nasal spray,taurus pension SHAKE LIQUID AND USE 1 SPRAY IN EACH NOSTRIL 1 TIME NEEDED active Not Available Not Available No t Available sertralin e 50 mg tablet TK 1 T PO QD 03/06 completed Not Available Not Available Not Available spironola ctone 50 mg tablet 02/14 completed Not Available Not Available Not Available amoxicill in 875 mg-potass ium clavulana te 125 mg tablet TAKE 1 TABLET BY MOUTH EVERY 12 HOURS FOR 10 DAYS 03/06 completed Not Available Not Available Not Available erythromy griselda with ethanol 2 % topical solution APPLY A THIN LAYER TO THE AFFECTED AREA(S) BY TOPICAL ROUTE 2 TIMES PER DAY IN THE MORNING AND EVENING active Not Available Not Available No t Available Boostrix Tdap 2.5 Lf unit-8 mcg-5 Lf/0.5 mL intramusc ular syringe ADM 0.5 ML IM UTD 08/21 completed Not Available Not Available Not Available biotin 03/06 completed Not Available Not Available Not Available Loestrin Fe 1.5/30 (28-Day) 10/26 completed Not Available Not Available Not Available Zyrtec 05/07 completed Not Available Not Available Not Available adapalene 0.3 % topical gel APPLY PEA SIZE AMOUNT TO FACE EVERY MORNING NOT FOR EYELIDS 02/14 completed Not Available Not Available Not Available prasugrel HCl 10 mg tablet Take 1 tablet every day by oral route for 30 days. 12/10 completed Not Available Not Available Not Available Lo Loestrin Fe 1 mg-10 mcg (24)/10 mcg (2) tablet 11/30 completed Not Available Not Available Not Available Vitamin D3 50 mcg (2,000 unit) capsule QD 2016 active Not Available Not Available Not Avai lable Xarelto 20 mg tablet active Not Available Not Available Not Available Xarelto DVT-PE Treatment 30-Day Starter 15 mg(42)-20 mg(9) tablet pack FPD. TAKE WITH FOOD 08/21 completed Not Available Not Available Not Available Flowflex COVID-19 Antigen Home Test kit TEST DIRECTED TODAY 03/06 completed Not Available Not Available Not Available Vitals Date Recorded Body mass index (BMI) Body height Heart rate Body temperature Body weight Systolic blood pressure Diastolic blood pressure Provider Name and Address Organization Details Last Updated DateTime 2 24.8 kg/m2 172.72 cm 80 /min 96.7 [degF] 41153.5 6 g 122 mm[Hg] 78 mm[Hg] Not Available [facility] 3 04:51:06 Date Recorded Body mass index (BMI) Body height Heart rate Body temperature Body weight Systolic blood pressure Diastolic blood pressure Provider Name and Address Organization Details Last Updated DateTime 2 23.9 kg/m2 172.72 cm 66 /min 97 [degF] 66879 g 122 mm[Hg] 80 mm[Hg] Not Available [facility] 3 04:51:06 Date Recorded Body mass index (BMI) Body height Heart rate Body temperature Body weight Systolic blood pressure Diastolic blood pressure Provider Name and Address Organization Details Last Updated DateTime 3 24.2 kg/m2 172.72 cm 77 /min 97.7 [degF] 96340.1 9 g 118 mm[Hg] 76 mm[Hg] Not Available [facility] 3 04:51:06 Date Recorded Body height Body mass index (BMI) Body weight Body temperature Heart rate Systolic blood pressure Diastolic blood pressure Provider Name and Address Organization Details Last Updated DateTime 3 172.72 cm 24 kg/m2 50600.5 9 g 98.3 [degF] 95 /min 120 mm[Hg] 86 mm[Hg] DULCE MARIA Maradiaga [place] [facility] 3 15:23:51 Date Recorded Body height Body mass index (BMI) Body weight Body temperature Heart rate Systolic blood pressure Diastolic blood pressure Provider Name and Address Organization Details Last Updated DateTime 3 172.72 cm 24.5 kg/m2 41446.3 7 g 97.6 [degF] 74 /min 110 mm[Hg] 70 mm[Hg] Donna azar RN [facility] [employer] 3 10:47:20 Social History Question Answer Notes LastModified by Organizat ion Details LastModified Time Tobacco Smoking Status Never Smoker Not Available [facility] 12/20/2022 04:42:44 Do You Have An Advance Directive? No MIGRATION.[id number] Information not available 12/20/2022 What Is Your Level Of Alcohol Consumption? None MIGRATION.96136 [id number] Information not available 12/20/2022 Do You Wear A Helmet When Biking? No MIGRATION.00538 41854 Information not available 12/20/2022 What Is Your Level Of Caffeine Consumption? Occasional MIGRATION.67025 74038 Information not available 12/20/2022 How Much Tobacco Do You Chew? None MIGRATION.98842 88242 Information not available 12/20/2022 In The 14 Days Before Symptom Onset, Have You Had Close Contact With A Laboratory-confi rmed COVID-19 While That Case Was Ill? No MIGRATION.08155 91019 Information not available 12/20/2022 In The 14 Days Before Symptom Onset, Have You Had Close Contact With A Person Who Is Under Investigation For COVID-19 While That Person Was Ill? No MIGRATION.34493 08893 Information not available 12/20/2022 Are You Currently Employed? Yes Information not available 07/10/2023 What Type Of Diet Are You Following? REGULAR MIGRATION.71902 10292 Information not available 12/20/2022 Which Illicit Or Recreational Drugs Have You Used? None MIGRATION.55217 02044 Information not available 12/20/2022 Do You Or Have You Ever Used E-cigarettes Or Vape? 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 No MIGRATION.79612 60120 Information not available 12/20/2022 Are There Any Guns Present In Your Home? Yes MIGRATION.39819 25960 Information not available 12/20/2022 Do You Use Insect Repellent Routinely? No MIGRATION.87482 87319 Information not available 12/20/2022 Where Do You Live? [place] MIGRATION.21637 93193 Information not available 12/20/2022 Do You Have A Medical Power Of Mail Delivery Supervisor? No MIGRATION.39280 92743 Information not available 12/20/2022 What Was The Date Of Your Most Recent Tobacco Screening? 07/10/2023 Information not available 07/10/2023 Do You Have Any Pets? Yes MIGRATION.45333 49609 Information not available 12/20/2022 What Is Your Relationship Status? MIGRATION.61901 76418 Information not available 12/20/2022 Do You Use Your Seat Belt Or Car Seat Routinely? Yes MIGRATION.08154 25420 Information not available 12/20/2022 Do You Have Smoke And Carbon Monoxide Detectors In Your Home? Yes MIGRATION.29960 46284 Information not available 12/20/2022 Are You Passively Exposed To Smoke? No MIGRATION.51227 47495 Information not available 12/20/2022 Do You Or Have You Ever Used Smokeless Tobacco? Never Used Smokeless Tobacco MIGRATION.82770 07108 Information not available 12/20/2022 Are There Any Smokers In Your House? No MIGRATION.38504 76783 Information not available 12/20/2022 How Much Tobacco Do You Smoke? No MIGRATION.25188 51816 Information not available 12/20/2022 Do You Feel Stressed (tense, Restless, Nervous, Or Anxious, Or Unable To Sleep At Night)? [id number] MIGRATION.95610 57951 Information not available 12/20/2022 Do You Use Any Illicit Or Recreational Drugs? No MIGRATION.00414 43182 Information not available 12/20/2022 Do You Use Sunscreen Routinely? Yes MIGRATION.80822 63706 Information not available 12/20/2022 Has Tobacco Cessation Counseling Been Provided? No MIGRATION.52293 15629 Information not available 12/20/2022 How Many Years Have You Smoked Tobacco? 0 MIGRATION.50302 63699 Information not available 12/20/2022 Have You Recently Traveled Abroad? No MIGRATION.55533 39736 Information not available 12/20/2022 Do You Have Any Dietary Restrictions? No MIGRATION.72246 08608 Information not available 12/20/2022 Do You Or Have You Ever Used Any Other Forms Of Tobacco Or Nicotine? No MIGRATION.61181 97521 Information not available 12/20/2022 Sex: Female Functional Status Question Answer Note LastModified by Organizat ion Details LastModified Time What is your exercise level? Occasional MIGRATION.[id number] 26 Information not available 12/20/2022 Mental Status None recorded. Family History Relationship Description Onset Age of this Age Resolved Age Notes LastModified by Organization Details LastModified Time Mother Diabetes mellitus MIGRATION.568 [id number] Not available 12/20/2022 04:43:23 Father Malignant neoplasm of brain 74 MIGRATION.531 [id number] Not available 12/20/2022 04:43:23 Father Family history of factor V deficiency MIGRATION.733 [id number] Not available 12/20/2022 04:43:23 Sister Family history of factor V deficiency 40 MIGRATION.439 [id number] Not available 12/20/2022 04:43:23 Brother Mixed anxiety and depressive disorder MIGRATION.889 [id number] Not available 12/20/2022 04:43:23 Notes:Sister has fatty tissu es in breasts and follows with specialist at [place]-- Medical History Condition Response NERVE DISEASE N BLINDNESS N RHEUMATIC FEVER N KIDNEY STONES N BLADDER PROBLEMS N OTHER # 1 N POLIO N LUNG DISEASE/DISORDER N RADIATION / CHEMOTHERAPY N COPD N Other # 2 N BLOOD DISEASES N SURGERY N EAR OR HEARING PROBLEMS N MUMPS N DEPRESSION (INCLUDING POST ) N BOWEL PROBLEMS N STROKE/TIA N ULCERS N BENIGN PROSTATIC HYPERPLASIA N MEASLES N MYOCARDIAL INFARCTION N OBESITY N GERD/NAUSEA N ANEURYSM N URINARY/BLADDER/KIDNEY PROBLEMS N INPATIENT PSYCH CARE N CORONARY ARTERY DISEASE (CAD) Y ADDICTION CONCERNS N Impotence N ENDOMETRIOSIS N USE OF BLOOD THINNERS N SKIN PROBLEMS N GASTROINTESTINAL DISORDER N PERIPHERAL VASCULAR DISEASE N MUSCLE,JOINT OR BONE PROBLEMS N GASTROINTESTINAL BLEEDING N BLOOD CLOTS N ASTHMA N CATARACTS N ERECTILE DYSFUNCTION N VARICOSITIES N GI PROBLEMS N Low Testosterone N INFERTILITY N AIDS/HIV N LIVER DISEASE N MALE HYPOGONADISM N HYPERTENSION N Deficiency N ANXIETY DISORDER Y BLOOD TRANSFUSION N ANEMIA/BLOOD DISORDER N CHRONIC EAR INFECTIONS N BRONCHITIS N TUBERCULOSIS N GLAUCOMA N DIVERTICULITIS N SLEEP APNEA N CHICKENPOX N INFECTIOUS DISEASE N PROSTATE N HEART ARRHYTHMIA N INSOMNIA N HIGH CHOLESTEROL / HYPERLIPIDEMIA Y EYE PROBLEMS N HYPERTHYROIDISM N NEUROLOGICAL PROBLEMS N EDEMA N CHRONIC PAIN SYNDROME N HYPOTHYROIDISM N CAROTID BLOCKAGE N CONSTIPATION N BACK / NECK PROBLEMS N HAVE YOU BEEN HOSPITALIZED OR SEEN IN [facility] IN THE PAST YEAR ? N ATHEROSCLEROSIS N BREAST PROBLEMS N DIALYSIS N ECZEMA N OSTEOPOROSIS N ARTHRITIS N NO SIGNIFICANT PAST MEDICAL HISTORY N APPENDICITIS N DIABETES, TYPE N BAD TEETH N ENT N HEARTBURN / REFLUX N AUTISM SPECTRUM DISORDER (ASD) N HEPATITIS / LIVER DISEASE N PULMONARY DISEASE N GOUT N SLEEP DISORDER N ALZHEIMER'S DISEASE N Brain Problems N DEMENTIA N HERPES N SEIZURES/EPILEPSY N HEADACHES/MIGRAINES N VASCULAR DISEASE N PACEMAKER N Blood Disorder Y DIZZINESS N HEART DISEASE/HEART PROBLEMS Y KIDNEY DISEASE N MULTIPLE SCLEROSIS N CANCER: SPECIFY N CARDIAC ARRHYTHMIA N ANESTHESIA COMPLICATIONS N ATRIAL FIBRILLATION N Gall Stones N PULMONARY EMBOLISM N AUTOIMMUNE DISEASE N Gynecological History Statement/Question Response Abnormal Pap Y Date of LMP Date of Last Pap Smear Current Control Method Ablation Age at Menarche 17 Most Recent Mammogram 05/06/2021 Breast Problems no Obstetrics History GPAL:G 1 P 1 0 0 1 Type Value Full Term 1 Living 1 Total 1 Immunizations Vaccine Type Date Status Note Provider Nam e and Address Organization Details Recorded Time COVID-19, mRNA, LNP-S, PF, 30 mcg/0.3 mL dose 1 completed Not Available [facility] 05/30/2023 08:27:21 COVID-19, mRNA, LNP-S, PF, 30 mcg/0.3 mL dose 1 completed Not Available [facility] 05/30/2023 08:27:21 Tdap 9 completed Not Available [facility] 05/30/2023 08:27:21 Influenza, split virus, quadrivalent, preservative 9 completed Not Available [facility] 05/30/2023 08:27:21 Past Encounters Encounter ID Performer Location Encounter Start Date Encounter Closed Date Diagnosis/Indication Diagnosis SNOMED-CT Code Diagnosis ICD10 Code Diagnosis Note [id number] [facility] Internal Med [facility] 15 2043 [employer] [employer], [address] [address] 12/21/2020 00:00:00 01/08/2021 21:18:44 [id number] S[facility] [address] 02/17/2021 00:00:00 02/19/2021 13:03:45 [id number] _ATHENA_M IGRATION_ DEFAULT_1 _1 , 03/15/2021 00:00:00 03/15/2021 17:40:33 [id number] S[place] [address] 08/02/2021 00:00:00 08/03/2021 09:01:02 [id number] S_[place] [address] 02/14/2022 00:00:00 03/05/2022 16:58:25 [id number] [facility] [place] [address] [place] [address] [place] [address] 03/02/2022 00:00:00 03/02/2022 22:02:28 [id number] [facility] [place] [address] [place] [address] y , [place] [address] 06/22/2022 00:00:00 07/08/2022 15:08:46 [id number] [facility] Internal Med [place] [address] [place] [address] y , [place] [address] 11/07/2022 00:00:00 11/26/2022 17:56:20 [id number] Shree Henry MD [facility] Internal Med [place] [address] [place] [address] y , [place] [address] 03/06/2023 14:59:24 03/06/2023 16:30:40 Adult health examination 319720558 Z00.00 Coronary arteriosclerosis 71232952 I25.10 Heterozygo us Factor V Leiden mutation 168185640 D68.51 Patent foramen ovale 204 386138 Q21.12 Dyslipidemia 482470967 E 78.5 [id number] Shree Henry MD [facility] Internal [facility] [place] [address] [place] [address] y , [place] [address] 07/10/2023 10:28:37 07/10/2023 11:41:17 Dyslipidemia 166121940 E78.5 Heterozygo us Factor V Leiden mutation 541606054 D68.51 Patent foramen ovale 204 072363 Q21.12 Coronary arteriosclerosis 28967703 I25.10 Anxiety 90642704 F41.9 Health Concerns Section Related Observation LastModified by Organization Detai ls LastModified Time None Recorded Concern Status LastModified by Organization Details LastModified Time None Recorded Advance Directives Directive N: Payers Encounter Date Sequence Insurance Name Policy Number Policy Zambrano Covered Member ID Zambrano Member ID Guarantor Name 03/06/2023 1 [facility] PLUS [id number] Camacho R White [id number] Camacho R White 07/10/2023 1 [facility] PLUS [id number] Camacho R White [id number] Camacho R White Notes Date Note Type Note Provider Name and Address Organization Details Recorded Time 3 text/html annual examTrying to watch her diet with history of dyslipidemiaAnxiety stableSome right hand pain from time to time Shree Henry MD [address], [place], [address], [employer] 04/22/2023 16:28:29 3 text/html Trying to watch her diet with history of dyslipidemiaAnxiety stableSome right hand pain from time to time Shree Henry MD [address], [place], [address], [employer] 07/15/2023 21:01:25 OBGyn Episode No OBEpisode recorded.
--- OUTSIDE RECORDS SUMMARY | 2024-11-13 23:08 | XMS_ITS | Clinical Summary ---
Author Organization [facility] [place] [address] Address [address] [place] [address] Care Team Providers Care Director Dermatology Name Role Phone Shree Henry MD Primary Care Provider Allergies Active Allergy Reactions Criticality Noted Date Comments Amitriptyline Unknown,Shortness of breath High 07/25/2019 Cat Dander Shortness of breath High 10/06/2019 Mushroom Swelling Medium 07/25/2019 Eyes swelled, throat was itchy Sumatriptan Swelling,Other (See comments),Shortness of breath High 04/23/2012 Medications ALPRAZolam (XANAX) 0.25 mg tablet Take 0.25 mg by mouth daily Active cetirizine (ZyrTEC) 10 mg tablet Take 10 mg by mouth daily Active cholecalciferol (VITAMIN D-3) 2,000 unit capsule Vitamin D3 2,000 unit capsule QD Active spironolactone (ALDACTONE) 50 mg tablet Take 50 mg by mouth daily 05/14/2019 Active rivaroxaban (Xarelto) 20 mg tablet Take 1 tablet (20 mg total) by mouth daily 90 tablet 12 11/21/2023 Active Active Problems Problem Noted Date Diagnosed Date 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 Encounters Date Type Department Care Team Description 10/28/2024 Telephone [facility] Cardiology [address] [place] [address] [place] [address] Nav Cutler MD PhD 10/28/2024 Telephone [facility] Cardiology [address] [place] [address] Mat Mirza MD from Last 3 Months Immunizations Name Administration Dates Next Due Influenza, Unspecified 07/10/2019 Surgical History Surgery Date Site/Laterality Comments CORONARY ANGIOPLASTY CARDIAC CATHETERIZATION LYMPH NODE BIOPSY 10/22/2004 - 10/21/2005 Cervical lymph nodes LASER ABLATION CONDYLOMA CERVICAL / VULVAR 08/27/2019 CHOLECYSTECTOMY 11/22/2019 - 12/20/2019 Medical History Medical History Date Comments Heart attack (HCC) H/O angioplasty Anxiety H/O blood clots PFO (patent foramen ovale) Factor 5 Leiden mutation, heterozygous (HCC) Basal cell carcinoma 2004 Depression 2009 Migraines 2000 Family History Medical History Relation Name Comments Anxiety disorder Brother 1 Rudolph Guzman Depression Brother 1 Rudolph Guzman Mental illness Brother 1 Rudolph Guzman Learning disabilities Brother 2 Cedrick Guzman Brain cancer Father Jeovany Guzman Cancer Father Jeovany Guzman Clotting disorder Father Jeovany Guzman Factor 5 Leiden deficiency heterozygous Father Ilsa Guzman Arthritis Mother Kirsten Guzman Diabetes Mother Kirsten Guzman Hypertension Mother Kirsten Guzman Miscarriages / Stillbirths Mother Kirsten Arellanolara t Clotting disorder Sister Deann Vázquez Factor 5 Leiden deficiency heterozygous Sister Jaqueline Vázquez Relation Name Status Comments Brother 1 Rudolph Guzman Alive Brother 2 Cedrick Guzman Alive Father Jeovany Guzman Mother Kirsten Guzman Alive Sister Deann Vázquez Alive Social History Tobacco Use Types Packs/Day Years Used Date Smoking Tobacco: Never Smokeless Tobacco: Never Tobacco Cessation:Counseling Given: Not Answered Alcohol Use Standard Drinks/Week Comments Yes 3 [...] on file Legal Sex Female 12:39 PM [employer] Gender Identity Female 06/29/2020 8:57 AM CDT Sexual Orientation Straight 06/29/2020 8: 57 AM CDT Obstetrics History Last Filed Vital Signs Vital Sign Reading Time Taken Comments Blood Pressure 114/74 11/21/2023 2:00 PM [employer] [employer] Pulse 71 11/21/2023 2:00 PM [employer] Temperature 37 ??C (98.6 ??F) 12/08/2019 6:45 AM [employer] Respiratory Rate 20 12/08/2019 1:50 PM [employer] Oxygen Saturation 96% 11/21/2023 2:00 PM [employer] Inhaled Oxygen Concentration - - Weight 69.9 kg (154 lb) 11/21/2023 2:00 PM [employer] [employer] Height 175.3 cm (5' 9 ) 11/21/2023 2:00 PM [employer] Body Mass Index 22.74 11/21/2023 2:00 PM [employer] [employer] Plan of Treatment Health Maintenance Due Date Last Done Comments Breast Cancer Screening-Mammogram 1976 Cervical Cancer Screening 1976 Colon Cancer Screening-Colonoscopy 1976 Depression Screening 1976 Hepatitis C Screening 1976 Hepatitis B Screening 1994 Regular Well Visit/Exam 18-64 1994 Influenza Vaccine (#1) 2024 9, 07/14/2016 DTaP/Tdap/Td Vaccine (2 - Td or Tdap) 07/25/2029 07/25/2019 Pneumococcal vaccine <65 Aged Out No longer eligible based on patient's age to complete this topic Insurance [facility] CHOICE PLUS [facility] CHOICE PLUS [facility] CHOICE PLUS Care Teams Director Dermatology Relationship Specialty Start Date End Date Shree Henry MD PCP - General Internal Medicine 07/07/19
--- OUTSIDE RECORDS SUMMARY | 2024-11-13 23:08 | XMS_ITS | Data Portability ---
Author Organization [facility] Rohit Coy Address [address] [place] [address] Care Team Providers Care Knitted Cloth Examiner Name Role Phone SHREE HENRY Primary Care Provider Unavailabl e Assessment Encounter Date Assessment Date Assessment LastModified by Organization Details LastModified Time 01/09/2024 01/09/2024 Anxiety continue with current therapy blood pressure is controlled we will continue with Xarelto for her coagulopathy follow-up with me in 6 months and she will continue to see MODELING MANAGER. We need her old records Not available 01/09/2024 22:37:06 05/15/2024 05/15/2024 continue current therapy follow up in 4 months [email or web address] Not available 05/25/2024 21:24:57 10/02/2024 10/02/2024 continue current therapy follow up in 4 months. Continues with the alprazolam take spironolactone as well as some Xarelto for now obtain her last colonoscopy report obtain her last Pap smear her blood pressure looks controlled follow up 4 months she is probably not going to take the COVID-19 she is going to consider it as well as her Tdap [email or web address] Not available 10/27/2024 16:35:48 Plan of Treatment Reminders Order Date Submit Date Provider Last Modified By Organization Details Last Modified Time Details Appointments ANY 15 2024 02:00P Linda Henry MD Not available Not available Not available Lab CMP, serum or plasma 2023 024 [facility], [address], [place], [address], 01/31/2024 14:48:41 CBC w/ auto diff 2023 024 [facility], [address], [place], [address], 01/31/2024 14:48:42 Referral None recorded . Procedures None recorded . Surgeries None recorded . Imaging None recorded . Medication Orders None recorded . Patient TargetsNo targets recorded. Patient InstructionsNo instructions recorded. Reason for Referral None Reported. Results Created Date Observation Date Name Description Value Unit Range Abnormal Flag Note LastModifiedBy Organization Detail LastModifiedTime 11/12/19 25 11/12/2024 influ henry virus A + B + SARS- CoV-2 (COVI D19) Ag panel , rapid IA, upper respi rator y speci men Flu A negati ve Not Available In-Office Order Internal Use Only DO Not Attach Compendium DO Not Attach Compendium, Do Not Delete/merge, [id number] 11/12/2024 10:20:27 11/12/19 25 11/12/2024 influ henry virus A + B + SARS- CoV-2 (COVI D19) Ag panel , rapid IA, upper respi rator y speci men Flu B negati ve Not Available In-Office Order Internal Use Only DO Not Attach Compendium DO Not Attach Compendium, Do Not Delete/merge, [id number] 11/12/2024 10:20:27 11/12/19 25 11/12/2024 influ henry virus A + B + SARS- CoV-2 (COVI D19) Ag panel , rapid IA, upper respi rator y speci men Rapid SARS CoV 2 Ag, QL IA, respiratory specimen negati ve Not Available In-Office Order Internal Use Only DO Not Attach Compendium DO Not Attach Compendium, Do Not Delete/merge, [id number] 11/12/2024 10:20:27 10/07/20 24 01/08/2023 colon oscop y proce dure (PROC ) No observ ation record ed. [facility] Not Available 2023 12:12:26 11/12/19 25 11/12/2024 XR, chest No observ ation record ed. [facility] [address], [place], [address], 11/12/2024 16:16:55 Result Notes None recorded. Problems Name Problem SNOMED Code Status Onset Date Resolution Date Notes Provider Name and Address Organization Details Recorded Time Cough 03931118 Active 11/12/19 Kiko Mcrae MA [facility], [facility] 11/12/2024 10:42:27 Problem Notes None recorded. Procedures Surgical History Date Name Laterality Status Provider Name and Address Organization Details Recorded Time 11/22/19 Cholecystectomy completed Ada Rodriguez MA [facility] 01/09/2024 17:23:55 Angioplasty With Stent completed Ada Rodriguez MA [facility] 01/09/2024 17:24:18 destruction of lesion of cervix completed Ada Rodriguez MA [facility] 01/09/2024 17:25:02 Imaging Results Imaging Date Name Status LastModified by Organiz ation Details LastModified Time 01/08/2023 colonoscopy procedure (PROC) completed [facility] Information not available 10/07/2024 12:12:26 11/12/2024 XR, chest completed [address], [address], 11/12/2024 16:16:55 Procedure Notes None recorded. Medical Equipment None Reported. Allergies Allergen ID Allergen Name Allergen Category Reaction Reaction Severity Criticality Documentation Date Start Date Code Code System Note Provider Name and Address Organization Details Recorded Time [id number] 2824e sumatript an medicatio n Not available Not available Not available 01/09/2024 81899 RxNorm Not Available Not Available Not Available [id number] 0448417m3 2824e cultivate d mushroom extract food Not available Not available Not available 01/09/2024 75461 17 RxNorm Not Available Not Available Not Available Medications Name Sig Start Date Stop Date Status Note LastModified by Organization Details LastModified Time doxycycline hyclate 100 mg capsule Take 1 capsule twice a day by oral route for 10 days. 2024 active Not Available Not Available Not Avai lable spironolacto ne 100 mg tablet 11/12 completed Not Available Not Available Not Available Zithromax Z-Luis Daniel 250 mg tablet Take 1 dose pk by oral route as directed . 2024 active Not Available Not Available Not Avai lable tramadol 50 mg tablet TAKE 1 TABLET BY MOUTH EVERY 6 HOURS NEEDED 01/08 completed Not Available Not Available Not Available alprazolam 0.25 mg tablet TAKE 1 TABLET BY MOUTH THREE TIMES DAILY active Not Available Not Available No t Available benzonatate 100 mg capsule TAKE 1 CAPSULE BY MOUTH EVERY 8 HOURS NEEDED 01/08 completed Not Available Not Available Not Available montelukast 10 mg tablet TAKE 1 TABLET BY MOUTH EVERY DAY 2024 active Not Available Not Available Not Avai lable Xarelto 20 mg tablet active Not Available Not Available No t Available Vitals Date Recorded Body height Provider Name an d Address Organization Details Last Updated DateTime 01/09/2024 175.26 cm Ada Rodriguez MA [facility] 01/09/2024 17:34:29 Date Recorded Body mass index (BMI) Body weight Provider Name and Address Organization Details Last Updated DateTime 01/09/2024 23.3 kg/m2 05144.59 g Ada Rodriguez MA [facility] 01/09/2024 17:34:32 Date Recorded Heart rate Provider Name an d Address Organization Details Last Updated DateTime 01/09/2024 89 /min MALINDA Granda [facility] 12/21 17:35:30 Date Recorded Oxygen saturation Oxygen saturation in Arterial blood by Pulse oximetry Provider Name and Address Organization Details Last Updated DateTime 01/09/2024 99 % 99 % MALINDA Granda [facility] 01/09/2024 17:35:32 Date Recorded Body height Provider Name an d Address Organization Details Last Updated DateTime 05/15/2024 175[address] [facility] 14:52:45 Date Recorded Body mass index (BMI) Body weight Provider Name and Address Organization Details Last Updated DateTime 05/15/2024 23.2 kg/m2 54940.08 g MALINDA Martinez - [facility] 0 05/15/2024 14:52:57 Date Recorded Heart rate Provider Name an d Address Organization Details Last Updated DateTime 05/15/2024 82 /min Justina Paz MA [facility] 14:59:29 Date Recorded Oxygen saturation Oxygen saturation in Arterial blood by Pulse oximetry Provider Name and Address Organization Details Last Updated DateTime 05/15/2024 98 % 98 % Justina Paz MA [facility] 05/15/2024 14:59:33 Date Recorded Body height Provider Name an d Address Organization Details Last Updated DateTime 10/02/2024 175.26 cm Becki Gomes [facility] 10/02/2024 15:15:49 Date Recorded Body mass index (BMI) Body weight Provider Name and Address Organization Details Last Updated DateTime 10/02/2024 23.6 kg/m2 57437.42 g [facility] 15:16:06 Date Recorded Heart rate Provider Name an d Address Organization Details Last Updated DateTime 10/02/2024 75 /min Becki Gomes [facility] 10/02/2024 15:19:25 Date Recorded Oxygen saturation Oxygen saturation in Arterial blood by Pulse oximetry Provider Name and Address Organization Details Last Updated DateTime 10/02/2024 97 % 97 % Becki Gomes [facility] 10/02 15:19:30 Date Recorded Body height Provider Name an d Address Organization Details Last Updated DateTime 11/12/2024 175.26 cm Becki Gomes [facility] 11/12/2024 10:13:35 Date Recorded Body mass index (BMI) Body weight Provider Name and Address Organization Details Last Updated DateTime 11/12/2024 22.5 kg/m2 26225.76 g Becki [facility] 10:13:45 Date Recorded Heart rate Provider Name an d Address Organization Details Last Updated DateTime 11/12/2024 122 /min Becki Gomes [facility] 11/12/2024 10:14:56 Date Recorded Oxygen saturation Oxygen saturation in Arterial blood by Pulse oximetry Provider Name and Address Organization Details Last Updated DateTime 11/12/2024 99 % 99 % Becki Gomes [facility] 11/12 10:14:58 Date Recorded Systolic blood pressure Diastolic blood pressure Provider Name and Address Organization Details Last Updated DateTime 01/09/2024 124 mm[Hg] 86 mm[Hg] Ada Rodriguez MALINDA [place] [facility] 01/09/2024 17:37:54 Date Recorded Systolic blood pressure Diastolic blood pressure Provider Name and Address Organization Details Last Updated DateTime 05/15/2024 126 mm[Hg] 70 mm[Hg] Justina Paz [place] [facility] 05/15/2024 14:58:54 Date Recorded Systolic blood pressure Diastolic blood pressure Provider Name and Address Organization Details Last Updated DateTime 10/02/2024 118 mm[Hg] 70 mm[Hg] Becki Gomes [place] [facility] 09/21 15:19:20 Date Recorded Systolic blood pressure Diastolic blood pressure Provider Name and Address Organization Details Last Updated DateTime 11/12/2024 130 mm[Hg] 72 mm[Hg] Becki Gomes [place] [facility] 10/23 10:14:48 Social History Question Answer Notes LastModified by Organizat ion Details LastModified Time Tobacco Smoking Status Never Smoker Ada Rodriguez [place] null, [place] [facility] 01/09/2024 17:22:27 Do You Have An Advance Directive? No Information n ot available 01/09/2024 What Is Your Level Of Alcohol Consumption? None Information not available 01/09/2024 Are You Blind Or Do You Have Difficulty Seeing? No Information n ot available 01/09/2024 What Is Your Level Of Caffeine Consumption? Moderate Information not available 01/09/2024 In The 14 Days Before Symptom Onset, Have You Had Close Contact With A Laboratory-confirm ed COVID-19 While That Case Was Ill? No Information n ot available 05/15/2024 In The 14 Days Before Symptom Onset, Have You Had Close Contact With A Person Who Is Under Investigation For COVID-19 While That Person Was Ill? No Information not available 05/15/2024 Have You Been To An Area Known To Be High Risk For COVID-19? No Information not available 05/15/2024 Are You Currently Employed? Yes Information not available 05/15/2024 Are You Deaf Or Do You Have Serious Difficulty Hearing? No Information not available 01/09/2024 What Type Of Diet Are You Following? REGULAR Information n ot available 01/09/2024 Are There Any Guns Present In Your Home? No Information not available 05/15/2024 What Was The Date Of Your Most Recent Tobacco Screening? 11/12/2024 [email or web address] Information not available 11/12/2024 What Is Your Relationship Status? Information not available 01/09/2024 Do You Use Your Seat Belt Or Car Seat Routinely? Yes Information not available 01/09/2024 Do You Have Smoke And Carbon Monoxide Detectors In Your Home? Yes Information not available 01/09/2024 Do You Use Any Illicit Or Recreational Drugs? No Information not available 01/09/2024 Do You Use Sunscreen Routinely? Yes Information not available 05/15/2024 Has Tobacco Cessation Counseling Been Provided? No Information not available 01/09/2024 Do You Or Have You Ever Used Any Other Forms Of Tobacco Or Nicotine? No Information not available 01/09/2024 Sex: Female Functional Status Question Answer Note LastModified by Organization D etails LastModified Time Are you able to care for yourself? Yes Information n ot available 01/09/2024 What is your exercise level? None Information not available 01/09/2024 Mental Status None recorded. Family History Relationship Description Onset Age of this Age Resolved Age Notes LastModified by Organization Details LastModified Time Brother Depressive disorder [email or web address] Not available 12/21 17:21:34 Mother Diabetes mellitus [email or web address] Not available 12/21 17:21:40 Mother Hypercholest erolemia [email or web address] Not available 12/21 17:21:52 Mother Hypertensive disorder [email or web address] Not available 12/21 17:22:04 Father Hypercholest erolemia [email or web address] Not available 12/21 17:22:08 Medical History Condition Response Coronary Artery Disease N Other N High Blood Pressure N Atrial Fibrillation N Kidney or Bladder Problems N Thyroid Problems N GI Problems N Depression N COPD N Blood Clots Y Skin Problems Y Anemia N Heart Attack (LA) Y Anxiety Disorder Y Diabetes N Muscle, Joint, or Bone Problems N Seizures/Epilepsy N Acid Reflux (GERD) N Cancer N Stroke N Asthma N Allergies Y High Cholesterol N Hepatitis N Liver Disease N Headaches Y Heart Failure N Osteoporosis N Gynecological HistoryNo gynecological history recorded. Obstetrics History GPAL:G 0 P 0 0 0 0 Immunizations Vaccine Type Date Status Note Provider Nam e and Address Organization Details Recorded Time Influenza, split virus, quadrivalent, preservative 9 completed Becki Gomes [place], [place] [facility] 11/12/2024 09:33:31 COVID-19, mRNA, LNP-S, PF, 30 mcg/0.3 mL dose 1 completed Becki G[place] [facility] 11/12/2024 09:33:31 COVID-19, mRNA, LNP-S, PF, 30 mcg/0.3 mL dose 1 completed Becki G[place] [facility] 11/12/2024 09:33:31 Tdap 9 completed MALINDA Sun, [place] [facility] 11/12/2024 09:33:31 Influenza, split virus, quadrivalent, PF 1 completed Becki Gomes [place], [place] [facility] 11/12/2024 09:33:31 Past Encounters Encounter ID Performer Location Encounter Start Date Encounter Closed Date Diagnosis/Indication Diagnosis SNOMED-CT Code Diagnosis ICD10 Code Diagnosis Note [id number] Shree Henry MD [facility] (Adult Med) [address] [place] [address] 01/09/2024 16:36:02 01/09/2024 18:24:50 Hyperlipidemia 49347677 E78.5 Anxiety 27025319 F41.9 [id number] Shree Henry MD [facility] [employer] [place] [address] [place] [address] 05/15/2024 14:29:32 05/15/2024 15:37:55 Patent foramen ovale 420512736 Q21.12 Anxiety 49266513 F41.9 Heterozygo us Factor V Leiden mutation 256288702 D68.51 [id number] Shree Henry MD [facility] [employer] [facility] [place] [address] [place] [address] 10/02/2024 15:00:09 10/02/2024 16:11:52 Body mass index 20-24 - normal 629871501 Z68.23 Patent foramen ovale 204 463968 Q21.12 Anxiety 43022577 F41.9 Heterozygo us Factor V Leiden mutation 447968765 D68.51 [id number] MALINDA [facility] (Adult Med) [address] [place] [address] 11/12/2024 10:04:24 11/12/2024 11:06:24 Body mass index 20-24 - normal 192771993 Z68.23 Cough 28801074 R05.9 Health Concerns Section Related Observation LastModified by Organization Detai ls LastModified Time None Recorded Concern Status LastModified by Organization Details LastModified Time None Recorded Advance Directives Directive N: Payers Encounter Date Sequence Insurance Name Policy Number Policy Zambrano Covered Member ID Zambrano Member ID Guarantor Name 01/09/2024 1 [facility] [id number] Camacho R White [id number] Camacho White 05/15/2024 1 [facility] [id number] Camacho R White [id number] Camacho White 10/02/2024 1 [facility] [id number] Camacho R White [id number] Camacho White Notes Date Note Type Note Provider Name and Address Organization Details Recorded Time 01/09/2024 text/html Anxiety stableHi story of factor V abnormality she is maintained on Xarelto because of history of DVT and 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 Shree Henry MD Attn: Accounting[address] [place], [address], [facility] 01/09/2024 22:37:26 05/15/2024 text/html Anxiety stableHi story of factor V abnormality she is maintained on Xarelto because of history of DVT and 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allergies acting up they seem to be responsive to Zyrtec [id number] Shree Henry MD Attn: [address]ing[address] [place], [address], [facility] 05/25/2024 21:25:35 10/02/2024 text/html PFO no stroke sy mptoms her anxiety seems to be controlled heterozygous factor 5 Leiden mutation continues on Xarelto at this moment Shree Henry MD Attn: Accounting[address] [facility], [place], [address], [facility] 10/27/2024 16:36:05 OBGyn Episode No OBEpisode recorded.
--- OUTSIDE RECORDS SUMMARY | 2024-11-13 23:08 | XMS_ITS | Referral Summary ---
Author Organization [facility] [address] [place] [address] [address] [place] [address] Care Team Providers Care Operations Officer Afloat Name Role Phone Shree Henry MD Primary Care Provider Encounters Date Type Department Care Team Description 10/28/2024 Telephone [facility] Cardiology [address] [facility] [address]th [place] [address] [place] [address] Nav Cutler MD PhD 10/28/2024 Telephone [facility] Cardiology [address] [place] [address] Mat Mirza MD from Last 3 Months Allergies Active Allergy Reactions Criticality Noted Date [...] Date Diagnosed Date 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 Immunizations Name Administration Dates Next Due Influenza, Unspecified 07/10/2019 Social History Tobacco Use Types Packs/Day Years [...] on file Legal Sex Female 12:39 PM [employer] Gender Identity Female 06/29/2020 8:57 AM CDT Sexual Orientation Straight 06/29/2020 8: 57 AM CDT Last Filed Vital Signs Vital Sign Reading Time Taken Comments Blood Pressure 114/74 11/21/2023 2:00 PM [facility] Pulse 71 11/21/2023 2:00 PM [facility] Temperature 37 ??C (98.6 ??F) 12/08/2019 6:45 AM [facility] Respiratory Rate 20 12/08/2019 1:50 PM [facility] Oxygen Saturation 96% 11/21/2023 2:00 PM [facility] Inhaled Oxygen Concentration - - Weight 69.9 kg (154 lb) 11/21/2023 2:00 PM [facility] Height 175.3 cm (5' 9 ) 11/21/2023 2:00 PM [facility] Body Mass Index 22.74 11/21/2023 2:00 PM [facility] Plan of Treatment Not on file Insurance [facility] CHO[facility] PLUS [facility] CHOICE PLUS [place] [id number] Care Teams Operations Officer Afloat Relationship Specialty Start Date End Date Shree Henry MD PCP - General Internal Medicine 07/07/19
--- OUTSIDE RECORDS SUMMARY | 2024-11-13 23:08 | XMS_ITS | Clinical Summary ---
Author Organization [facility] Vin esteban Marilyn Address [address] [place] [address] Care Team Providers Care Window/Distribution Clerk Name Role Phone Shree Henry MD Primary Care Provider [phone] Allergies Active Allergy Reactions Criticality Noted Date Comments Amitriptyline Shortness of Breath/Wheezing High 07/25/2019 Cat Dander Shortness of Breath/Wheezing High 10/06/2019 Mushroom Swelling Medium 07/25/2019 Eyes swelled, throat was itchy Sumatriptan Other (See Comments),Swelling,Short ness of Breath/Wheezing High 04/23/2012 Medications ALPRAZolam (XANAX) 0.25 mg tablet alprazolam 0.25 mg tablet TK 1 T PO TID Active cetirizine (ZyrTEC) 10 mg tablet cetirizine 10 mg tablet TK 1 T PO QD Active Cholecalciferol , Vitamin D3, 2,000 unit Capsule Vitamin D3 2,000 unit capsule QD Active Xarelto 20 mg Tablet 0 Active ketoconazole (NIZORAL) 2 % Shampoo ketoconazole 2 % shampoo Active Active Problems Problem Noted Date Diagnosed Date Acute deep vein thrombosis ( DVT) of femoral vein of left lower extremity 08/05/2019 Encounters Date Type Department Care Team Description 11/10/2024 2:15 PM BLOOD BANK CUSTODIAN Office Visit [facility] Oncology and Hematology - [place] [address] [address] Darren Bowles MD Acute deep vein thrombosis (DVT) of femoral vein of left lower extremity (CMS/HCC) (Primary Dx) from Last 3 Months Family History Medical History Relation Name Comments Cancer Father Diabetes Mother Relation Name Status Comments Brother 1 Alive Brother 2 Alive Father (Age 74) Mother Alive Sister Alive Social History Tobacco Use Types Packs/Day Years Used Date Smoking Tobacco: Never Smokeless Tobacco: Never Alcohol Use Standard Drinks/Week Comments Yes 0 (1 standard drink = 0.6 oz pur e alcohol) Comments No Sex and Gender Information Value Date Recorded Sex Assigned at Female 07/04/2024 1:46 PM CDT Legal Sex Female 2:43 PM CDT Gender Identity Female 07/04/2024 1:46 PM CDT Sexual Orientation Not on file Last Filed Vital Signs Vital Sign Reading Time Taken Comments Blood Pressure 107/76 11/10/2024 2:10 PM BLOOD BANK CUSTODIAN Pulse 85 11/10/2024 2:10 PM BLOOD BANK CUSTODIAN Temperature 36.6 ??C (97.8 ??F) 11/10/2024 2:10 PM CS T Respiratory Rate 17 11/10/2024 2:10 PM BLOOD BANK CUSTODIAN Oxygen Saturation 97% 11/10/2024 2:10 PM BLOOD BANK CUSTODIAN Inhaled Oxygen Concentration - - Weight 68.2 kg (150 lb 6.4 oz) 11/10/2024 2:10 P M BLOOD BANK CUSTODIAN Height 175.3 cm (5' 9 ) 05/25/2022 2:30 PM CDT Body Mass Index 22.21 05/25/2022 2:30 PM CDT Plan of Treatment Upcoming Encounters Date Type Department Care Team (Late st Contact Info) Description 11/09/2025 1:00 PM BLOOD BANK CUSTODIAN Office Visit [facility] Oncology and Hematology - [place] [address] [facility] [address] [place] [address] Darren Bowles MD [address] [facility] [address] [place] [address] Health Maintenance Due Date Last Done Comments HEPATITIS B VACCINES (1 of 3 - 19+ 3-dose series) 1995 CERVICAL CANCER SCREENING 2006 BREAST CANCER SCREENING 2016 COLORECTAL SCREENING 2021 Colorectal Cancer Screening 2021 FIT-DNA Q 3 years 2021 FIT/FOBT Q 1 year 2021 Flex Sig/CT Colonography Q 5 years 2021 INFLUENZA VACCINE (#1) 2024 07/31/2021, 2018 Preventative Visit- Commercial 10/22/2024 03/06/2023 DTAP/TDAP/TD VACCINES (2 - Td or Tdap) 07/25/2029 Insurance [facility] [id number] Care Teams Window/Distribution Clerk Relationship Specialty Start Date End Date Shree Henry MD [facility] [place] [address] PCP - General Internal Medicine 07/10/19
--- OUTSIDE RECORDS SUMMARY | 2024-11-13 23:08 | XMS_ITS | Encounter Summary ---
Author Organization [facility] Address [address] [place] [address] Phone Care Team Providers Care Used Car Make Ready Mechanic Name Role Phone Shree Henry MD Primary Care Provider Encounter Details Date Type Department Care Team (Late st Contact Info) Description 10/28/2024 Telephone [facility] Cardiology [address] [facility] 8th [place] [address] [place] [address] Nav Cutler MD PhD [address] [place], [place] [id number] Social History Tobacco Use Types Packs/Day Years [...] on file Legal Sex Female 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 Please fax. ITION ASSEMBLY MACHINE OPERATOR documented in this encounter Plan of Treatment Not on file documented as of this encounter Visit Diagnoses Not on filedocumented in this encounter Care Teams Used Car Make Ready Mechanic Relationship Specialty Start Date End Date Shree Henry MD PCP - General Internal Medicine 07/07/19 documented as of this encounter
== END 2024-11-12 10:16 | disposition home or self-care (01) ==
PROVIDERS: PCP Internal Medicine; Visit Provider Internal Medicine
DX: R05.9 Cough, unspecified (principal); R91.8 Other nonspecific abnormal finding of lung field
CPT/HCPCS: 71046

== ENCOUNTER 2025-01-06 15:20 | Outpatient (CLI) | payer OTHER, SELFPAY ==
--- NOTE | ~2025-01-06 | US_ITS ---
LEFT LOWER EXTREMITY VENOUS ULTRASOUND Ordering provider: Darren Bowles MD History: . Pain and swelling . Comparison: None. FINDINGS: --COMMON FEMORAL: Patent and free of thrombus. Normal compressibility, phasic flow and augmentation. --PROXIMAL SUPERFICIAL FEMORAL: Patent and free of thrombus. Normal compressibility, phasic flow and augmentation. --DISTAL SUPERFICIAL FEMORAL: Patent and free of thrombus. Normal compressibility, phasic flow and au gmentation. --POPLITEAL: Patent and free of thrombus. Normal compressibility, phasic flow and augmentation. --POSTERIOR TIBIAL: Patent and free of thrombus. Normal compressibility, phasic flow and augmentation . IMPRESSION: Negative left lower extremity venous US. No deep vein thrombosis. Reviewed, dictated and finalized at location A.
--- OUTSIDE RECORDS SUMMARY | 2025-01-06 17:19 | XMS_ITS | Clinical Summary ---
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 Encounters Date Type Department Care Team Description 10/28/2024 Telephone [facility] Cardiology [address] [facility] 8th [place] [address] [place] [address] Nav Cutler MD PhD 10/28/2024 Telephone [facility] Cardiology [address] [place] [address] Mat Mirza MD from Last 3 Months Immunizations Immunization Administration Dates Next Due Influenza, Unspecified 07/10/2019 Surgical History Surgery Date Site/Laterality Comments CORONARY ANGIOPLASTY CARDIAC CATHETERIZATION LYMPH NODE BIOPSY 10/22/2004 - 10/21/2005 Cervical lymph nodes LASER ABLATION CONDYLOMA CERVICAL / VULVAR 08/27/2019 CHOLECYSTECTOMY 11/22/2019 - 12/20/2019 Medical History Medical History Date Comments Heart attack (HCC) H/O angioplasty Anxiety H/O blood clots PFO (patent foramen ovale) Factor 5 Leiden mutation, heterozygous Basal cell carcinoma 2005 Depression 2009 Migraines 2000 Family History Medical [...] Kirsten Guzman Miscarriages / Stillbirths Mother Kirsten Jackson t Clotting disorder Sister Deann Vázquez Factor [...] on file Legal Sex Female 12:39 PM TUMOR REGISTR[employer] Gender Identity Female 06/29/2020 8:57 AM CDT Sexual Orientation Straight 06/29/2020 8: 57 AM CDT Obstetrics History Last Filed Vital Signs Vital Sign Reading Time Taken Comments Blood Pressure 114/74 11/21/2023 2:00 PM TUMOR REGISTRAR Pulse 71 11/21/2023 2:00 PM TUMOR REGISTRAR Temperature 37 C (98.6 F) 12/08/2019 6:45 AM TUMOR REGISTRAR Respiratory Rate 20 12/08/2019 1:50 PM TUMOR REGISTRAR Oxygen Saturation 96% 11/21/2023 2:00 PM TUMOR REGISTRAR Inhaled Oxygen Concentration - - Weight 69.9 kg (154 lb) 11/21/2023 2:00 PM TUMOR REGISTRAR Height 175.3 cm (5' 9 ) 11/21/2023 2:00 PM TUMOR REGISTRAR Body Mass Index 22.74 11/21/2023 2:00 PM TUMOR REGISTRAR Plan of Treatment Health Maintenance Due Date [...] patient's age to complete this topic Insurance [facility] CHOICE PLUS [facility] H[facility]PPO Address: [address] [place] [address] [facility] Address: [address] [place] [address] [facility] Address: [place] [address] Care Teams Sales Enablement Lead Relationship Specialty Start Date End Date Shree Henry MD PCP - General Internal Medicine 07/07/19
--- OUTSIDE RECORDS SUMMARY | 2025-01-06 17:19 | XMS_ITS | Data Portability ---
Author Organization [place] [facility] [email or web address], Main Office Address [address] [place] [address] Assessment Encounter Date Assessment Date Assessment LastModified by Organization Details LastModified Time 03/06/2023 03/06/2023 Low-fat diet continue with current therapy follow-up in 6 months immunizations and screenings discussed ordered were appropriate patient agreeable preventive measures sunscreen seatbelts regular exercise etc. discussed Not available 04/22/2023 16:28:00 07/10/2023 07/10/2023 Will continue with current therapy will follow-up in 6 months [email or web address] Not available 07/15/2023 21:01:08 Plan of Treatment [...] ----- HIGH RISK: >240 >200 Not Available [facility] (Lab) [address] [place], [address], 02/13/2022 13:14:00 02/14/20 22 02/13/2022 LIPID PANEL triglyceride s 174 mg/dL 0-150 high NIH FERNANDA NSUS REPOR T RECOM MENDA TION FOR TRIGL YCERI LILLY: ADULT CHILD LOW RISK: <150 ----- BODER LINE: 150-1 99 ----- HIGH RISK: >200 ----- Not Available [facility] (Lab) [address] [place], [address], 02/13/2022 13:14:00 02/14/20 22 02/13/2022 LIPID PANEL HDL cholesterol 36 mg/dL 40- low Not Available [facility] (Lab) [address] [place], [address], 02/13/2022 13:14:00 02/14/20 22 02/13/2022 LIPID PANEL [...] WILL NOT BE REPOR DELMER. Not Available [facility] (Lab) [address] [place], [address], 02/13/2022 13:14:00 02/14/20 22 02/13/2022 COMPR EHENS DONNY METAB OLIC PANEL sodium 135 mmol/ L 137-14 5 low Not Available [facility] (Lab) [address] [place], [address], 02/13/2022 13:13:58 02/14/20 22 02/13/2022 COMPR EHENS DONNY METAB OLIC PANEL potassium 4.4 mmol/ L 3.5-5. 1 Not Available [facility] (Lab) [address] [place], [address], 02/13/2022 13:13:58 02/14/20 22 02/13/2022 COMPR EHENS DONNY METAB OLIC PANEL chloride 103 mmol/ L 98-107 Not Available [facility] (Lab) [address] [place], [address], 02/13/2022 13:13:58 02/14/20 22 02/13/2022 COMPR EHENS DONNY METAB OLIC PANEL carbon dioxide 24 mmol/ L 22-30 Not Available [facility] (Lab) [address] [place], [address], 02/13/2022 13:13:58 02/14/20 22 02/13/2022 COMPR EHENS DONNY METAB OLIC PANEL anion gap 12.4 mmol/ L 14-22 low Not Available [facility] (Lab) [address] [place], [address], 02/13/2022 13:13:58 02/14/20 22 02/13/2022 COMPR EHENS DONNY METAB OLIC PANEL glucose 90 mg/dL 70-99 Not Available [facility] (Lab) [address] [place], [address], 02/13/2022 13:13:58 02/14/20 22 02/13/2022 COMPR EHENS DONNY METAB OLIC PANEL BUN 14 mg/dL 8-19 Not Available [facility] (Lab) [address] [place], [address], 02/13/2022 13:13:58 02/14/20 22 02/13/2022 COMPR EHENS DONNY METAB OLIC PANEL creatinine 1.00 mg/dL 0.66-1 .25 Not Available [facility] (Lab) [address] [place], [address], 02/13/2022 13:13:58 02/14/20 22 02/13/2022 COMPR EHENS DONNY METAB OLIC PANEL GFR 60 Refer ence Range : [facility] GFR Healt hy Adult : >60 mL/mi n/1.7 3 m2 Chron ic Kidne y Disea se: 15-60 mL/mi n/1.7 3 m2 Kidne y Failu re: <15/m L/min /1.73 m2 [email or web address] ov The MDRD study equat ion has [...] calcu lator is avail able on the [facility] websi te: https :[email or web address] [email or web address] [email or web address] rg/pr ofess ional s/kdo qi/gf r_cal culat or Not Available [facility] (Lab) [address] [place], [address], 02/13/2022 13:13:58 02/14/20 22 02/13/2022 COMPR EHENS DONNY METAB OLIC PANEL alkaline phosphatase 95 U/L 38-126 Not Available [facility] (Lab) [address] [place], [address], 02/13/2022 13:13:58 02/14/20 22 02/13/2022 COMPR EHENS DONNY METAB OLIC PANEL alanine aminotransfe rase 24 U/L 0-35 Not Available [facility] (Lab) [address] [place], [address], 02/13/2022 13:13:58 02/14/20 22 02/13/2022 COMPR EHENS DONNY METAB OLIC PANEL aspartate aminotransfe rase 27 U/L 15-37 Not Available [facility] (Lab) [address] [place], [address], 02/13/2022 13:13:58 02/14/20 22 02/13/2022 COMPR EHENS DONNY METAB OLIC PANEL bilirubin, total 0.40 mg/dL 0.20-1 .30 Not Available [facility] (Lab) [address] [place], [address], 02/13/2022 13:13:58 02/14/20 22 02/13/2022 COMPR EHENS DONNY METAB OLIC PANEL calcium 8.9 mg/dL 8.4-10 .2 Not Available [facility] (Lab) [address] [place], [address], 02/13/2022 13:13:58 02/14/20 22 02/13/2022 COMPR EHENS DONNY METAB OLIC PANEL total protein 7.7 g/dL 6.3-8. 2 Not Available [facility] (Lab) [address] [place], [address], 02/13/2022 13:13:58 02/14/20 22 02/13/2022 COMPR EHENS DONNY METAB OLIC PANEL albumin 4.4 g/dL 3.4-5. 0 Not Available [facility] (Lab) [address] [place], [address], 02/13/2022 13:13:58 02/14/20 22 02/13/2022 COMPR EHENS DONNY METAB OLIC PANEL globulin 3.3 g/dL 2.6-4. 2 Not Available [facility] (Lab) [address] [place], [address], 02/13/2022 13:13:58 02/14/20 22 02/13/2022 COMPR EHENS DONNY METAB OLIC PANEL A/G ratio 1.3 ratio 1.0-2. 0 Not Available [facility] (Lab) [address] [place], [address], 02/13/2022 13:13:58 05/29/20 23 05/29/2023 CBC/C OMPLE TE BLD COUNT W/DIF F white blood cells 5.5 x10'3 /uL 4.2-10 .8 Not Available [facility] (Lab) [address] [place], [address], 05/29/2023 19:13:35 05/29/20 23 05/29/2023 CBC/C OMPLE TE BLD COUNT W/DIF F red blood cells 4.78 x10'6 /uL 3.80-5 .20 Not Available [facility] (Lab) [address] [place], [address], 05/29/2023 19:13:35 05/29/20 23 05/29/2023 CBC/C OMPLE TE BLD COUNT W/DIF F hemoglobin 14.0 g/dL 12.0-1 5.6 Not Available [facility] (Lab) [address] [place], [address], 05/29/2023 19:13:35 05/29/20 23 05/29/2023 CBC/C OMPLE TE BLD COUNT W/DIF F hematocrit 42.1 % 35.7-4 5.7 Not Available [facility] (Lab) [address] [place], [address], 05/29/2023 19:13:35 05/29/20 23 05/29/2023 CBC/C OMPLE TE BLD COUNT W/DIF F mean red cell volume 88.1 fL 82.0-9 9.0 Not Available [facility] (Lab) [address] [place], [address], 05/29/2023 19:13:35 05/29/20 23 05/29/2023 CBC/C OMPLE TE BLD COUNT W/DIF F mean red cell hemoglobin 29.3 pg 27.0-3 3.0 Not Available [facility] (Lab) [address] [place], [address], 05/29/2023 19:13:35 05/29/20 23 05/29/2023 CBC/C OMPLE TE BLD COUNT W/DIF F mean RBC HGB concentratio n 33.3 g/dL 31.0-3 6.0 Not Available [facility] (Lab) [address] [place], [address], 05/29/2023 19:13:35 05/29/20 23 05/29/2023 CBC/C OMPLE TE BLD COUNT W/DIF F red cell distribution width 12.5 % 11.8-1 5.5 Not Available [facility] (Lab) [address] [place], [address], 05/29/2023 19:13:35 05/29/20 23 05/29/2023 CBC/C OMPLE TE BLD COUNT W/DIF F platelets 248 x10'3 /uL 150-40 0 Not Available [facility] (Lab) [address] [place], [address], 05/29/2023 19:13:35 05/29/20 23 05/29/2023 CBC/C OMPLE TE BLD COUNT W/DIF F mean platelet volume 10.2 fL 9.0-12 .4 Not Available [facility] (Lab) [address] [place], [address], 05/29/2023 19:13:35 05/29/20 23 05/29/2023 CBC/C OMPLE TE BLD COUNT W/DIF F neutrophils 63.0 % 39.0-7 2.0 Not Available [facility] (Lab) [address] [facility] [place], [address], 05/29/2023 19:13:35 05/29/20 23 05/29/2023 CBC/C OMPLE TE BLD COUNT W/DIF F lymphocytes 28.9 % 16.0-4 7.0 Not Available [facility] (Lab) [address] [place], [address], 05/29/2023 19:13:35 05/29/20 23 05/29/2023 CBC/C OMPLE TE BLD COUNT W/DIF F monocytes 6.0 % 5.0-12 .0 Not Available [facility] (Lab) [address] [place], [address], 05/29/2023 19:13:35 05/29/20 23 05/29/2023 CBC/C OMPLE TE BLD COUNT W/DIF F eosinophils 1.5 % 1.0-7. 0 Not Available [facility] (Lab) [address] [place], [address], 05/29/2023 19:13:35 05/29/20 23 05/29/2023 CBC/C OMPLE TE BLD COUNT W/DIF F basophils 0.4 % 0.0-2. 0 Not Available [facility] (Lab) [address] [place], [address], 05/29/2023 19:13:35 05/29/20 23 05/29/2023 CBC/C OMPLE TE BLD COUNT W/DIF F immature granulocytes 0.2 % 0.00-0 .50 Not Available [facility] (Lab) [address] [place], [address], 05/29/2023 19:13:35 05/29/20 23 05/29/2023 CBC/C OMPLE TE BLD COUNT W/DIF F neutrophils, absolute count 3.47 x10'3 /uL 1.5-8. 0 Not Available [facility] (Lab) [address] [place], [address], 05/29/2023 19:13:35 05/29/20 23 05/29/2023 CBC/C OMPLE TE BLD COUNT W/DIF F lymphocytes, absolute count 1.59 x10'3 /uL 1.07-3 .43 Not Available [facility] (Lab) [address] [place], [address], 05/29/2023 19:13:35 05/29/2005/29/2023 CBC/C OMPLE TE BLD COUNT W/DIF F monocytes, absolute count 0.33 x10'3 /uL 0.29-0 .99 Not Available [facility] (Lab) [address] [place], [address], 05/29/2023 19:13:35 05/29/20 23 05/29/2023 CBC/C OMPLE TE BLD COUNT W/DIF F eosinophils, absolute count 0.08 x10'3 /uL 0.02-0 .53 Not Available [facility] (Lab) [address] [place], [address], 05/29/2023 19:13:35 05/29/20 23 05/29/2023 CBC/C OMPLE TE BLD COUNT W/DIF F basophils, absolute count 0.02 x10'3 /uL 0.01-0 .08 Not Available [facility] (Lab) [address] [place], [address], 05/29/2023 19:13:35 05/29/20 23 05/29/2023 CBC/C OMPLE TE BLD COUNT W/DIF F immature granulocytes ,absolute 0.01 x10'3 /uL 0.00-0 .05 Not Available [facility] (Lab) [address] [place], [address], 05/29/2023 19:13:35 05/29/20 23 05/29/2023 CBC/C OMPLE TE BLD COUNT W/DIF F nucleated red blood cells 0.0 % -0 Not Available [facility] (Lab) [address] [place], [address], 05/29/2023 19:13:35 05/29/20 23 05/29/2023 CBC/C OMPLE TE BLD COUNT W/DIF F NRBC# 0.00 x10'3 /uL Not Available [facility] (Lab) [address] [place], [address], 05/29/2023 19:13:35 05/29/20 23 05/29/2023 COMPR EHENS DONNY METAB OLIC PANEL sodium 137 mmol/ L 137-14 5 Not Available [facility] (Lab) [address] [place], [address], 05/29/2023 20:03:58 05/29/20 23 05/29/2023 COMPR EHENS DONNY METAB OLIC PANEL potassium 4.1 mmol/ L 3.5-5. 1 Not Available [facility] (Lab) [address] [place], [address], 05/29/2023 20:03:58 05/29/20 23 05/29/2023 COMPR EHENS DONNY METAB OLIC PANEL chloride 101 mmol/ L 98-107 Not Available [facility] (Lab) [address] [place], [address], 05/29/2023 20:03:58 05/29/20 23 05/29/2023 COMPR EHENS DONNY METAB OLIC PANEL carbon dioxide 28 mmol/ L 22-30 Not Available [facility] (Lab) [address] [place], [address], 05/29/2023 20:03:58 05/29/20 23 05/29/2023 COMPR EHENS DONNY METAB OLIC PANEL anion gap 12.1 mmol/ L 14-22 low Not Available [facility] (Lab) [address] [place], [address], 05/29/2023 20:03:58 05/29/20 23 05/29/2023 COMPR EHENS DONNY METAB OLIC PANEL glucose 95 mg/dL 70-99 Not Available [facility] (Lab) [address] [place], [address], 05/29/2023 20:03:58 05/29/20 23 05/29/2023 COMPR EHENS DONNY METAB OLIC PANEL BUN 13 mg/dL 8-19 Not Available [facility] (Lab) [address] [place], [address], 05/29/2023 20:03:58 05/29/20 23 05/29/2023 COMPR EHENS DONNY METAB OLIC PANEL creatinine 0.98 mg/dL 0.66-1 .25 Not Available [facility] (Lab) [address] [place], [address], 05/29/2023 20:03:58 05/29/20 23 05/29/2023 COMPR EHENS DONNY METAB OLIC PANEL GFR >60 Refer ence Range : [facility] GFR Healt hy Adult : >60 [...] or ethni c subgr oups, such as Hisct nics. Outsi de the valid ated jb [...] calcu lator is avail able on the [facility] websi te: [email or web address] :[email or web address] [email or web address] [email or web address] rg/pr ofess ional s/kdo qi/gf r_cal culat or Not Available [facility] (Lab) [address] [place], [address], 05/29/2023 20:03:58 05/29/20 23 05/29/2023 COMPR EHENS DONNY METAB OLIC PANEL alkaline phosphatase 80 U/L 38-126 Not Available [facility] (Lab) [address] [place], [address], 05/29/2023 20:03:58 05/29/20 23 05/29/2023 COMPR EHENS DONNY METAB OLIC PANEL alanine aminotransfe rase 24 U/L 0-35 Not Available [facility] (Lab) [address] [place], [address], 05/29/2023 20:03:58 05/29/20 23 05/29/2023 COMPR EHENS DONNY METAB OLIC PANEL aspartate aminotransfe rase 28 U/L 15-37 Not Available [facility] (Lab) [address] [place], [address], 05/29/2023 20:03:58 05/29/20 23 05/29/2023 COMPR EHENS DONNY METAB OLIC PANEL bilirubin, total 0.30 mg/dL 0.20-1 .30 Not Available [facility] (Lab) [address] [place], [address], 05/29/2023 20:03:58 05/29/20 23 05/29/2023 COMPR EHENS DONNY METAB OLIC PANEL calcium 9.3 mg/dL 8.4-10 .2 Not Available [facility] (Lab) [address] [place], [address], 05/29/2023 20:03:58 05/29/20 23 05/29/2023 COMPR EHENS ODNNY METAB OLIC PANEL total protein 8.3 g/dL 6.3-8. 2 high Not Available [facility] (Lab) [address] [place], [address], 05/29/2023 20:03:58 05/29/20 23 05/29/2023 COMPR EHENS DONNY METAB OLIC PANEL albumin 4.8 g/dL 3.4-5. 0 Not Available [facility] (Lab) [address] [place], [address], 05/29/2023 20:03:58 05/29/20 23 05/29/2023 COMPR EHENS DONNY METAB OLIC PANEL globulin 3.5 g/dL 2.6-4. 2 Not Available [facility] (Lab) [address] [place], [address], 05/29/2023 20:03:58 05/29/20 23 05/29/2023 COMPR EHENS DONNY METAB OLIC PANEL A/G ratio 1.4 ratio 1.0-2. 0 Not Available [facility] (Lab) [address] [place], [address], 05/29/2023 20:03:58 05/29/20 23 05/29/2023 LIPID PANEL cholesterol 195 mg/dL 140-19 9 NIH FERNANDA NSUS RECOM MENDA TION FOR COLTEN STERO L: ADULT CHILD LOW RISK: <200 <170 BORDE RLINE : <200- 239 ----- HIGH RISK: >240 >200 Not Available [facility] (Lab) [address] [place], [address], 05/29/2023 20:04:01 05/29/20 23 05/29/2023 LIPID PANEL triglyceride s 231 mg/dL 0-150 high NIH FERNANDA NSUS REPOR T RECOM MENDA TION FOR TRIGL YCERI LILLY: ADULT CHILD LOW RISK: <150 ----- BODER LINE: 150-1 99 ----- HIGH RISK: >200 ----- Not Available [facility] (Lab) [address] [place], [address], 05/29/2023 20:04:01 05/29/20 23 05/29/2023 LIPID PANEL HDL cholesterol 35 mg/dL 40- low Not Available [facility] (Lab) [address] [place], [address], 05/29/2023 20:04:01 05/29/20 23 05/29/2023 LIPID PANEL [...] WILL NOT BE REPOR DELMER. Not Available [facility] (Lab) [address] [place], [address], 05/29/2023 20:04:01 01/30/20 24 01/30/2024 CBC/C OMPLE TE BLD COUNT W/DIF F white blood cells 4.9 x10'3 /uL 4.2-10 .8 Not Available [facility] (Lab) [address] [place], [address], 01/30/2024 13:10:37 01/30/20 24 01/30/2024 CBC/C OMPLE TE BLD COUNT W/DIF F red blood cells 4.51 x10'6 /uL 3.80-5 .20 Not Available [facility] (Lab) [address] [place], [address], 01/30/2024 13:10:37 01/30/20 24 01/30/2024 CBC/C OMPLE TE BLD COUNT W/DIF F hemoglobin 13.6 g/dL 12.0-1 5.6 Not Available [facility] (Lab) [address] [place], [address], 01/30/2024 13:10:37 01/30/20 24 01/30/2024 CBC/C OMPLE TE BLD COUNT W/DIF F hematocrit 40.3 % 35.7-4 5.7 Not Available [facility] (Lab) [address] [place], [address], 01/30/2024 13:10:37 01/30/20 24 01/30/2024 CBC/C OMPLE TE BLD COUNT W/DIF F mean red cell volume 89.4 fL 82.0-9 9.0 Not Available [facility] (Lab) [address] [place], [address], 01/30/2024 13:10:37 01/30/20 24 01/30/2024 CBC/C OMPLE TE BLD COUNT W/DIF F mean red cell hemoglobin 30.2 pg 27.0-3 3.0 Not Available [facility] (Lab) [address] [place], [address], 01/30/2024 13:10:37 01/30/20 24 01/30/2024 CBC/C OMPLE TE BLD COUNT W/DIF F mean RBC HGB concentratio n 33.7 g/dL 31.0-3 6.0 Not Available [facility] (Lab) [address] [place], [address], 01/30/2024 13:10:37 01/30/20 24 01/30/2024 CBC/C OMPLE TE BLD COUNT W/DIF F red cell distribution width 13.2 % 11.8-1 5.5 Not Available [facility] (Lab) [address] [place], [address], 01/30/2024 13:10:37 01/30/20 24 01/30/2024 CBC/C OMPLE TE BLD COUNT W/DIF F platelets 243 x10'3 /uL 150-40 0 Not Available [facility] (Lab) [address] [place], [address], 01/30/2024 13:10:37 01/30/20 24 01/30/2024 CBC/C OMPLE TE BLD COUNT W/DIF F mean platelet volume 10.1 fL 9.0-12 .4 Not Available [facility] (Lab) [address] [place], [address], 01/30/2024 13:10:37 01/30/20 24 01/30/2024 CBC/C OMPLE TE BLD COUNT W/DIF F neutrophils 61.6 % 39.0-7 2.0 Not Available [facility] (Lab) [address] [place], [address], 01/30/2024 13:10:37 01/30/20 24 01/30/2024 CBC/C OMPLE TE BLD COUNT W/DIF F lymphocytes 28.2 % 16.0-4 7.0 Not Available [facility] (Lab) [address] [place], [address], 01/30/2024 13:10:37 01/30/20 24 01/30/2024 CBC/C OMPLE TE BLD COUNT W/DIF F monocytes 7.2 % 5.0-12 .0 Not Available [facility] (Lab) [address] [place], [address], 01/30/2024 13:10:37 01/30/20 24 01/30/2024 CBC/C OMPLE TE BLD COUNT W/DIF F eosinophils 2.0 % 1.0-7. 0 Not Available [facility] (Lab) [address] [place], [address], 01/30/2024 13:10:37 01/30/20 24 01/30/2024 CBC/C OMPLE TE BLD COUNT W/DIF F basophils 0.8 % 0.0-2. 0 Not Available [facility] (Lab) [address] [place], [address], 01/30/2024 13:10:37 01/30/20 24 01/30/2024 CBC/C OMPLE TE BLD COUNT W/DIF F immature granulocytes 0.2 % 0.00-0 .50 Not Available [facility] (Lab) [address] [place], [address], 01/30/2024 13:10:37 01/30/20 24 01/30/2024 CBC/C OMPLE TE BLD COUNT W/DIF F neutrophils, absolute count 3.01 x10'3 /uL 1.5-8. 0 Not Available [facility] (Lab) [address] [place], [address], 01/30/2024 13:10:37 01/30/20 24 01/30/2024 CBC/C OMPLE TE BLD COUNT W/DIF F lymphocytes, absolute count 1.38 x10'3 /uL 1.07-3 .43 Not Available [facility] (Lab) [address] [place], [address], 01/30/2024 13:10:37 01/30/20 24 01/30/2024 CBC/C OMPLE TE BLD COUNT W/DIF F monocytes, absolute count 0.35 x10'3 /uL 0.29-0 .99 Not Available [facility] (Lab) [address] [place], [address], 01/30/2024 13:10:37 01/30/20 24 01/30/2024 CBC/C OMPLE TE BLD COUNT W/DIF F eosinophils, absolute count 0.10 x10'3 /uL 0.02-0 .53 Not Available [facility] (Lab) [address] [place], [address], 01/30/2024 13:10:37 01/30/20 24 01/30/2024 CBC/C OMPLE TE BLD COUNT W/DIF F basophils, absolute count 0.04 x10'3 /uL 0.01-0 .08 Not Available [facility] (Lab) [address] [place], [address], 01/30/2024 13:10:37 01/30/20 24 01/30/2024 CBC/C OMPLE TE BLD COUNT W/DIF F immature granulocytes ,absolute 0.01 x10'3 /uL 0.00-0 .05 Not Available [facility] (Lab) [address] [place], [address], 01/30/2024 13:10:37 01/30/20 24 01/30/2024 CBC/C OMPLE TE BLD COUNT W/DIF F nucleated red blood cells 0.0 % -0 Not Available [facility] (Lab) [address] [place], [address], 01/30/2024 13:10:37 01/30/20 24 01/30/2024 CBC/C OMPLE TE BLD COUNT W/DIF F NRBC# 0.00 x10'3 /uL Not Available [facility] (Lab) [address] [place], [address], 01/30/2024 13:10:37 01/30/20 24 01/30/2024 COMPR EHENS DONNY METAB OLIC PANEL sodium 138 mmol/ L 137-14 5 Not Available [facility] (Lab) [address] [place], [address], 01/30/2024 16:39:22 01/30/20 24 01/30/2024 COMPR EHENS DONNY METAB OLIC PANEL potassium 4.3 mmol/ L 3.5-5. 1 Not Available [facility] (Lab) [address] [place], [address], 01/30/2024 16:39:22 01/30/20 24 01/30/2024 COMPR EHENS DONNY METAB OLIC PANEL chloride 105 mmol/ L 98-107 Not Available [facility] (Lab) [address] [place], [address], 01/30/2024 16:39:22 01/30/20 24 01/30/2024 COMPR EHENS DONNY METAB OLIC PANEL carbon dioxide 27 mmol/ L 22-30 Not Available [facility] (Lab) [address] [place], [address], 01/30/2024 16:39:22 01/30/20 24 01/30/2024 COMPR EHENS DONNY METAB OLIC PANEL anion gap 10.3 mmol/ L 14-22 low Not Available [facility] (Lab) [address] [place], [address], 01/30/2024 16:39:22 01/30/20 24 01/30/2024 COMPR EHENS DONNY METAB OLIC PANEL glucose 87 mg/dL 70-99 Not Available [facility] (Lab) [address] [place], [address], 01/30/2024 16:39:22 01/30/20 24 01/30/2024 COMPR EHENS DONNY METAB OLIC PANEL BUN 15 mg/dL 8-19 Not Available [facility] (Lab) [address] [place], [address], 01/30/2024 16:39:22 01/30/20 24 01/30/2024 COMPR EHENS DONNY METAB OLIC PANEL creatinine 0.95 mg/dL 0.66-1 .25 Not Available [facility] (Lab) [address] [place], [address], 01/30/2024 16:39:22 01/30/20 24 01/30/2024 COMPR EHENS DONNY METAB OLIC PANEL GFR >60 Refer ence Range : [facility] GFR Healt hy Adult : >60 [...] calcu lator is avail able on the [facility] websi te: [email or web address] :[email or web address] rg/pr ofess ional s/kdo qi/gf r_cal culat or Not Available [facility] (Lab) [address] [place], [address], 01/30/2024 16:39:22 01/30/20 24 01/30/2024 COMPR EHENS DONNY METAB OLIC PANEL alkaline phosphatase 73 U/L 38-126 Not Available [facility] (Lab) [address] [place], [address], 01/30/2024 16:39:22 01/30/20 24 01/30/2024 COMPR EHENS DONNY METAB OLIC PANEL alanine aminotransfe rase 26 U/L 0-35 Not Available [facility] (Lab) [address] [place], [address], 01/30/2024 16:39:22 01/30/20 24 01/30/2024 COMPR EHENS DONNY METAB OLIC PANEL aspartate aminotransfe rase 29 U/L 15-37 Not Available [facility] (Lab) [address] [place], [address], 01/30/2024 16:39:22 01/30/20 24 01/30/2024 COMPR EHENS DONNY METAB OLIC PANEL bilirubin, total 0.50 mg/dL 0.20-1 .30 Not Available [facility] (Lab) [address] [place], [address], 01/30/2024 16:39:22 01/30/20 24 01/30/2024 COMPR EHENS DONNY METAB OLIC PANEL calcium 9.1 mg/dL 8.4-10 .2 Not Available [facility] (Lab) [address] [place], [address], 01/30/2024 16:39:22 01/30/20 24 01/30/2024 COMPR EHENS DONNY METAB OLIC PANEL total protein 7.2 g/dL 6.3-8. 2 Not Available [facility] (Lab) [address] [place], [address], 01/30/2024 16:39:22 01/30/20 24 01/30/2024 COMPR EHENS DONNY METAB OLIC PANEL albumin 4.2 g/dL 3.4-5. 0 Not Available [facility] (Lab) [address] [place], [address], 01/30/2024 16:39:22 01/30/20 24 01/30/2024 COMPR EHENS DONNY METAB OLIC PANEL globulin 3.0 g/dL 2.6-4. 2 Not Available [facility] (Lab) [address] [place], [address], 01/30/2024 16:39:22 01/30/20 24 01/30/2024 COMPR EHENS DONNY METAB OLIC PANEL A/G ratio 1.4 ratio 1.0-2. 0 Not Available [facility] ([facility]) [address] [place], [address], 01/30/2024 16:39:22 05/25/20 22 05/25/2022 US, doppl er, venou s No observ ation record ed. [id number] [facility] [address], [place], [address], 12/20/2022 05:06:32 Result Notes None recorded. Problems Name Problem SNOMED Code Status Onset Date Resolution Date Notes Provider Name and Address Organization Details Recorded Time Sunburn of first degree 249341055 Completed Not Available [facility] 3 04:52:58 Patent foramen ovale 131043967 Active [address] [facility] November 2019 Not Available [employer] 3 08:27:20 Heterozy gous Factor V Leiden mutation 930000104 Active 2018 see Oncology note 2016 Not Available [employer] 3 08:27:20 Bronchit is 98584788 Completed Not Available [facility] 3 04:52:58 Dyslipid emia 342456255 Active 2019 Not Available [employer] 3 08:27:21 Viral syndrome 980442754 Completed Not Available [facility] 3 04:52:58 Anxiety 05348955 Active Not Available [employer] 3 08:27:21 Coronary arterios clerosis 85520546 Active 2018 balloon angiopla [facility] 2018. Normal LV function Not Available [employer] 3 08:27:21 Disorder of skin 52347630 Completed Not Available [employer] 3 04:52:59 Problem Notes None recorded. Procedures Surgical History Date Name Laterality Status Provider Name and Address Organization Details Recorded Time 01/09/20 23 Colonoscopy completed DULCE MARIA Maradiaga [place] - [facility] [place] [employer] [facility] 03/06/2023 15:24:38 05/06/20 21 Most Recent Mammogram completed Not Available [facility] 12/20/2022 04:43:10 12/28/19 20 cholecystectomy completed Not Available [facility] 12/20/2022 04:43:13 07/07/20 19 Cardiovascular Procedure completed Not Available [facility] 12/20/2022 04:43:13 excision of lymph node completed Not Available [facility] 12/20/2022 04:43:13 destruction of lesion of cervix completed Not Available [facility] 12/20/2022 04:43:13 Ablation completed Not Available [facility] 12/20/2022 04:43:13 Imaging Results Imaging Date Name Status LastModified by Organiz ation Details LastModified Time 05/25/2022 US, doppler, venous completed [id number] [address] [place], [place] [address] [facility] [address], [place], [address], 12/20/2022 05:06:32 Procedure Notes None recorded. Medical Equipment None Reported. Allergies Allergen ID Allergen Name Allergen Category Reaction Reaction Severity Criticality Documentation Date Start Date Code Code System Note Provider Name and Address Organization Details Recorded Time 8663 sumatript an medicatio n facial swelling Not available Not available 12/20/2022 41516 RxNorm Not Available [facility] 3 05:06:04 8665 amitripty line medicatio n Not available Not available Not available 12/20/2022 704 RxNorm Not Available [facility] 3 05:06:04 Medications Name Sig Start Date [...] mg tablet Take by oral route. take 4y2zzmn, 1p2qjja, 2c1qwvk active Not Available Not Available No t [...] Available Not Available norgestim ate-ethin yl estradiol 0.18mg/0. 215mg/0.2 5mg-0.035 mg(28)tab let 10/14 completed Not Available Not Available Not [...] kg/m2 172.72 cm 80 /min 96.7 [degF] 13181.5 6 g 122 mm[Hg] 78 mm[Hg] Not Available [facility] 3 04:51:06 Date Recorded Body mass index (BMI) Body height Heart rate Body temperature Body weight Systolic blood pressure Diastolic blood pressure Provider Name and Address Organization Details Last Updated DateTime 2 23.9 kg/m2 172.72 cm 66 /min 97 [degF] 77391 g 122 mm[Hg] 80 mm[Hg] Not Available [facility] 3 04:51:06 Date Recorded Body mass index (BMI) Body height Heart rate Body temperature Body weight Systolic blood pressure Diastolic blood pressure Provider Name and Address Organization Details Last Updated DateTime 3 24.2 kg/m2 172.72 cm 77 /min 97.7 [degF] 43555.1 9 g 118 mm[Hg] 76 mm[Hg] Not Available [facility] 3 04:51:06 Date Recorded Body height Body mass index (BMI) Body weight Body temperature Heart rate Systolic blood pressure Diastolic blood pressure Provider Name and Address Organization Details Last Updated DateTime 3 172.72 cm 24 kg/m2 75890.5 9 g 98.3 [degF] 95 /min 120 mm[Hg] 86 mm[Hg] DULCE MARIA Maradiaga [place] [employer] 3 15:23:51 Date Recorded Body height Body mass index (BMI) Body weight Body temperature Heart rate Systolic blood pressure Diastolic blood pressure Provider Name and Address Organization Details Last Updated DateTime 3 172.72 cm 24.5 kg/m2 18958.3 7 g 97.6 [degF] 74 /min 110 mm[Hg] 70 mm[Hg] Donna azar RN [facility] [email or web address] 3 10:47:20 Social History Question Answer Notes LastModified by Organizat ion Details LastModified Time Tobacco Smoking Status Never Smoker Not Available [facility] 12/20/2022 04:42:44 Do You Have An Advance Directive? No MIGRATION.36945 32894 Information not available 12/20/2022 What Is Your Level Of Alcohol Consumption? None MIGRATION.60846 31446 Information not available 12/20/2022 Do You Wear A Helmet When Biking? No MIGRATION.36817 26627 Information not available 12/20/2022 What Is Your Level Of Caffeine Consumption? Occasional MIGRATION.98993 45058 Information not available 12/20/2022 How Much Tobacco Do You Chew? None MIGRATION.73753 73795 Information not available 12/20/2022 In The 14 Days Before Symptom Onset, Have You Had Close Contact With A Laboratory-confi rmed COVID-19 While That Case Was Ill? No MIGRATION.21546 47883 Information not available 12/20/2022 In The 14 Days Before Symptom Onset, Have You Had Close Contact With A Person Who Is Under Investigation For COVID-19 While That Person Was Ill? No MIGRATION.45548 54955 Information not available 12/20/2022 Are You Currently Employed? Yes Information not available 07/10/2023 What Type Of Diet Are You Following? REGULAR MIGRATION.20774 45190 Information not available 12/20/2022 Which Illicit Or Recreational Drugs Have You Used? None MIGRATION.74421 31774 Information not available 12/20/2022 Do You Or Have You Ever Used E-cigarettes Or Vape? 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 No MIGRATION.49148 84568 Information not available 12/20/2022 Are There Any Guns Present In Your Home? Yes MIGRATION.45320 61375 Information not available 12/20/2022 Do You Use Insect Repellent Routinely? No MIGRATION.46427 04949 Information not available 12/20/2022 Where Do You Live? [place] MIGRATION.48722 74768 Information not available 12/20/2022 Do You Have A Medical Power Of Fashion Buying Internship? No MIGRATION.57516 80982 Information not available 12/20/2022 What Was The Date Of Your Most Recent Tobacco Screening? 07/10/2023 Information not available 07/10/2023 Do You Have Any Pets? Yes MIGRATION.97658 38906 Information not available 12/20/2022 What Is Your Relationship Status? MIGRATION.19968 11374 Information not available 12/20/2022 Do You Use Your Seat Belt Or Car Seat Routinely? Yes MIGRATION.28274 96206 Information not available 12/20/2022 Do You Have Smoke And Carbon Monoxide Detectors In Your Home? Yes MIGRATION.47958 89588 Information not available 12/20/2022 Are You Passively Exposed To Smoke? No MIGRATION.80480 59564 Information not available 12/20/2022 Do You Or Have You Ever Used Smokeless Tobacco? Never Used Smokeless Tobacco MIGRATION.06567 98188 Information not available 12/20/2022 Are There Any Smokers In Your House? No MIGRATION.10842 17976 Information not available 12/20/2022 How Much Tobacco Do You Smoke? No MIGRATION.01037 40575 Information not available 12/20/2022 Do You Feel Stressed (tense, Restless, Nervous, Or Anxious, Or Unable To Sleep At Night)? WD51374-4 MIGRATION.84488 89326 Information not available 12/20/2022 Do You Use Any Illicit Or Recreational Drugs? No MIGRATION.18726 92395 Information not available 12/20/2022 Do You Use Sunscreen Routinely? Yes MIGRATION.92115 27988 Information not available 12/20/2022 Has Tobacco Cessation Counseling Been Provided? No MIGRATION.52272 75815 Information not available 12/20/2022 How Many Years Have You Smoked Tobacco? 0 MIGRATION.81279 40471 Information not available 12/20/2022 Have You Recently Traveled Abroad? No MIGRATION.39854 53444 Information not available 12/20/2022 Do You Have Any Dietary Restrictions? No MIGRATION.39997 92905 Information not available 12/20/2022 Do You Or Have You Ever Used Any Other Forms Of Tobacco Or Nicotine? No MIGRATION.59852 85340 Information not available 12/20/2022 Sex: Female Functional Status Question Answer Note LastModified by Organizat ion Details LastModified Time What is your exercise level? Occasional MIGRATION.[id number] 26 Information not available 12/20/2022 Mental Status None recorded. Family History Relationship Description Onset Age of this Age Resolved Age Notes LastModified by Organization Details LastModified Time Mother Diabetes mellitus MIGRATION.005 [id number] Not available 12/20/2022 04:43:23 Father Malignant neoplasm of brain 74 MIGRATION.047 9697521 Not available 12/20/2022 04:43:23 Father Family history of factor V deficiency MIGRATION.199 5351231 Not available 12/20/2022 04:43:23 Sister Family history of factor V deficiency 40 MIGRATION.474 7599521 Not available 12/20/2022 04:43:23 Brother Mixed anxiety and depressive disorder MIGRATION.569 9503898 Not available 12/20/2022 04:43:23 Notes:Sister has fatty tissu es in breasts and follows with specialist at May-- Medical History Condition Response NERVE DISEASE N [...] HAVE YOU BEEN HOSPITALIZED OR SEEN IN [facility] IN THE PAST YEAR ? N ATHEROSCLEROSIS [...] mcg/0.3 mL dose 1 completed Not Available [facility] 05/30/2023 08:27:21 COVID-19, mRNA, LNP-S, PF, 30 mcg/0.3 mL dose 1 completed Not Available [facility] 05/30/2023 08:27:21 Tdap 9 completed Not Available [facility] 05/30/2023 08:27:21 Influenza, split virus, quadrivalent, preservative 9 completed Not Available [facility] 05/30/2023 08:27:21 Past Encounters Encounter ID Performer Location Encounter Start Date Encounter Closed Date Diagnosis/Indication Diagnosis SNOMED-CT Code Diagnosis ICD10 Code Diagnosis Note [id number] [facility] Internal Med [facility] [email or web address] 15 2043 [facility], [address] [address] 12/21/2020 00:00:00 01/08/2021 21:18:44 [id number] S[facility] [address] 02/17/2021 00:00:00 02/19/2021 13:03:45 [id number] _ATHENA_M IGRATION_ DEFAULT_1 _1 , 03/15/2021 00:00:00 03/15/2021 17:40:33 [id number] [facility] [address] 08/02/2021 00:00:00 08/03/2021 09:01:02 [id number] [facility] [address] 02/14/2022 00:00:00 03/05/2022 16:58:25 [id number] [facility] Internal Med [place] [address] [place] [address] [place] [address] 03/02/2022 00:00:00 03/02/2022 22:02:28 [id number] [facility] Internal Med [place] llbharat [address] [place] [address] y , [place] [address] 06/22/2022 00:00:00 07/08/2022 15:08:46 [id number] [facility] Internal Med [place] l[place]harat [address] [place] [address] [place] [address] 11/07/2022 00:00:00 11/26/2022 17:56:20 [id number] Shree Henry MD [facility] Internal Med [place] [address] [place] [address] y , [place] [address] 03/06/2023 14:59:24 03/06/2023 16:30:40 Adult health examination 565352391 Z00.00 Coronary arteriosclerosis 92166020 I25.10 Heterozygo us Factor V Leiden mutation 275251025 D68.51 Patent foramen ovale 204 804534 Q21.12 Dyslipidemia 727010049 E 78.5 [id number] Shree Henry MD [facility] Internal Med [place] l[place]harat [address] [place] [address] y , [place] [address] 07/10/2023 10:28:37 07/10/2023 11:41:17 Dyslipidemia 648391612 E78.5 Heterozygo us Factor V Leiden mutation 907259037 D68.51 Patent foramen ovale 204 994758 Q21.12 Coronary arteriosclerosis 97489729 I25.10 Anxiety 15698441 F41.9 Health Concerns Section Related Observation LastModified by Organization Detai ls LastModified Time None Recorded Concern Status LastModified by Organization Details LastModified Time None Recorded Advance Directives Directive N: Payers Encounter Date Sequence Insurance Name Policy Number Policy Zambrano Covered Member ID Zambrano Member ID Guarantor Name 03/06/2023 1 [facility] CHOICE PLUS [id number] Camacho R White [id number] Camacho R White 07/10/2023 1 [facility] CHOICE PLUS [id number] Camacho R White [id number] Camacho R White Notes Date Note Type Note Provider Name and Address Organization Details Recorded Time 3 text/html annual examTrying to watch her diet with history of dyslipidemiaAnxiety stableSome right hand pain from time to time Shree Henry MD [address], [place], [address], [employer] 04/22/2023 16:28:29 3 text/html Trying to watch her diet with history of dyslipidemiaAnxiety stableSome right hand pain from time to time Shree Henry MD [address], [place], [address], [employer] 07/15/2023 21:01:25 OBGyn Episode No OBEpisode recorded.
--- OUTSIDE RECORDS SUMMARY | 2025-01-06 17:19 | XMS_ITS | Encounter Summary ---
Author Organization [facility] [employer] [facility] Address [address] [place] [address] Care Team Providers Care Stump Blower Name Role Phone Shree Henry MD Primary Care Provider [phone] Reason for Referral * Radiology Services (Routine) - Closed Specialty Diagnoses / Procedures Referred By Bessie t Referred To Contact Diagnoses Pain and swelling of left lower leg Procedures US VENOUS DOPPLER LEG LEFT Darren Bowles MD [address] [place] [address] Phone: tel: fax: [place] [phone] Referral ID Status Reason Start Date Expiration Date V isits Requested Visits Authorized [id number] Closed [facility] 01/06/2025 02/06/2026 1 1 Reason for Visit * Reason Onset Date Comments STAT US 01/06/2025 Encounter Details Date Type Department Care Team (Late st Contact Info) Description 01/06/2025 Telephone [facility] Oncology and Hematology [facility] [address] [address] Darren Bowles MD [address] [place] [address] STAT US Social History Tobacco Use Types Packs/Day Years [...] PM CDT Sexual Orientation Not on file documented as of this encounter Miscellaneous Notes * Telephone Encounter - Kita Stokes - 01/06/2025 2:25 PM CDT Patient called and stated that she is having a lot of tightness in her left calf. She said that it does have some swelling and redness. She has done some recent traveling in the car and did a lot of driving. We will order a STAT venous doppler. She is on today for 3:30 pm. documented in this encounter Plan of Treatment Upcoming Encounters Date Type Department Care Team (Late st Contact Info) Description 11/09/2025 1:00 PM LICENSED OCCUPATIONAL THERAPY ASSISTANT Office Visit [facility] Oncology and Hematology - [place] [address] [facility] [address] [place] [address] Darren Bowles MD [address] [facility] [address] [place] [address] Scheduled Orders Name Type Priority Associated Diagnoses Orde r Schedule US VENOUS DOPPLER LEG LEFT Imaging Routine Pain and swelling of left lower leg Expected: 01/06/2025, Expires: 01/06/2026 documented as of this encounter Visit Diagnoses Diagnosis Pain and swelling of left lower leg- Primary documented in this encounter Care Teams Stump Blower Relationship Specialty Start Date End Date Shree Henry MD [address] [place] [address] PCP - General Internal Medicine 07/10/19 documented as of this encounter
--- OUTSIDE RECORDS SUMMARY | 2025-01-06 17:19 | XMS_ITS | Encounter Summary ---
Author Organization [facility] [employer] Address [address] [place] [address] Care Team Providers Care Assayer Helper Name Role Phone Shree Henry MD Primary Care Provider Reason for Visit * Reason Onset Date Comments Procedure Results 01/06/2025 Encounter Details Date Type Department Care Team (Late Contact Info) Description 01/06/2025 Telephone [facility] Oncology and Hematology - [place] [address] [facility] [address] [place] [address] Darren Bowles MD [address] [facility] [address] [place] [address] Procedure Results Social History Tobacco Use Types Packs/Day Years [...] Telephone Encounter - Kita Stokes - 01/06/2025 4:30 PM CDT Spoke with patient and let her know that her US was negative for any DVT and to continue taking herXarelto. Patient verbalized understanding with no further questions. documented in this encounter Plan of Treatment Upcoming Encounters Date Type Department Care Team (Late st Contact Info) Description 11/09/2025 1:00 PM SERVICE LOSS CONTROL CONSULTANT Office Visit [facility] Oncology and Hematology - [place] [address] [facility] [address] [place] [address] Darren Bowles MD [address] [facility] [address] [place] [address] documented as of this encounter Visit Diagnoses Not on filedocumented in this encounter Care Teams Assayer Helper Relationship Specialty Start Date End Date Shree Henry MD [address] [place] [address] PCP - General Internal Medicine 07/10/19 documented as of this encounter
--- OUTSIDE RECORDS SUMMARY | 2025-01-06 17:19 | XMS_ITS | Referral Summary ---
Author Organization [facility] [address] [place] [address] [address] [place] [address] Care Team Providers Care [employer]eral Home General Manager Name Role Phone Shree Henry MD Primary Care Provider Encounters Date Type Department Care Team Description 10/28/2024 Telephone [facility] Cardiology [address] [facility] Advanced Medicine [address]th [place] [address] [place] [address] Nav Cutler MD PhD 10/28/2024 Telephone [facility] Cardiology [address] [place] [address] Mat iMrza MD from Last 3 Months Allergies Active [...] Noted Date Diagnosed Date 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 Immunizations Immunization Administration Dates Next Due Influenza, [...] on file Legal Sex Female 12:39 PM PRINCIPAL STATISTICAL PROGRAMMER Gender Identity Female 06/29/2020 8:57 AM CDT Sexual Orientation Straight 06/29/2020 8: 57 AM CDT Last Filed Vital Signs Vital Sign Reading Time Taken Comments Blood Pressure 114/74 11/21/2023 2:00 PM PRINCIPAL STATISTICAL PROGRAMMER Pulse 71 11/21/2023 2:00 PM PRINCIPAL STATISTICAL PROGRAMMER Temperature 37 C (98.6 F) 12/08/2019 6:45 AM PRINCIPAL STATISTICAL PROGRAMMER Respiratory Rate 20 12/08/2019 1:50 PM PRINCIPAL STATISTICAL PROGRAMMER Oxygen Saturation 96% 11/21/2023 2:00 PM PRINCIPAL STATISTICAL PROGRAMMER Inhaled Oxygen Concentration - - Weight 69.9 kg (154 lb) 11/21/2023 2:00 PM PRINCIPAL STATISTICAL PROGRAMMER Height 175.3 cm (5' 9 ) 11/21/2023 2:00 PM PRINCIPAL STATISTICAL PROGRAMMER Body Mass Index 22.74 11/21/2023 2:00 PM PRINCIPAL STATISTICAL PROGRAMMER Plan of Treatment Not on file Insurance [facility] CHOICE PLUS [facility] CHO[facility] PLUS [facility] PLUS Care Teams Funeral Home General Manager Relationship Specialty Start Date End Date Shree Henry MD PCP - General Internal Medicine 07/07/19
--- OUTSIDE RECORDS SUMMARY | 2025-01-06 17:19 | XMS_ITS | Data Portability ---
Author Organization [facility] Rohit Coy Address [address] [place] [address] Care Team Providers Care Anatomic Pathology Assistant Name Role Phone WESTON HENRY Primary Care Provider Unavailabl e Assessment Encounter Date Assessment Date Assessment LastModified by Organization Details LastModified Time 01/09/2024 01/09/2024 Anxiety continue with current therapy blood pressure is controlled we will continue with Xarelto for her coagulopathy follow-up with me in 6 months and she will continue to see SAP ABAP DEVELOPER. We need her old records [email or web address] Not available 01/09/2024 22:37:06 05/15/2024 05/15/2024 continue current therapy follow up in 4 months [id number] Not available 05/25/2024 21:24:57 10/02/2024 10/02/2024 continue [...] consider it as well as her Tdap [id number] Not available 10/27/2024 16:35:48 11/12/2024 11/12/2024 flu and COVID swabs are negative doxycycline. Singulair for 30 days. Chest x-ray. Keep regular follow up. Not available 11/16/2024 17:36:17 Plan of Treatment Reminders Order Date Submit Date Provider Last Modified By Organization Details Last Modified Time Details Appointments ANY 15 2024 02:00P Linda Henry MD Not available Not available Not available Lab influenza virus A + B + SARS-CoV- 2 (COVID19) Ag panel, rapid IA, upper respirato ry specimen 2024 025 In-Office Order, Internal Use Only DO Not Attach Compendium DO Not Attach Compendium, Do Not Delete/merge, [id number] 11/12/2024 11:11:10 CMP, serum or plasma 2023 024 [email or web address], [address], [place], [address], 01/31/2024 14:48:41 CBC w/ auto diff 2023 024 [facility], [address], [place], [address], 01/31/2024 14:48:42 Referral None recorded. Procedures None recorded. Surgeries None recorded. Imaging XR, chest 2024 025 [facility], [address] [place] [address] [address], [place], [address], 11/12/2024 15:16:24 Medication Orders doxycycli ne hyclate 100 mg capsule 2024 025 [id number], [address], [place], [id number], 12/02/2024 11:45:04 Singulair 10 mg tablet 2024 025 [email or web address] [facility] #[id number], [address], [place], [id number], 11/12/2024 11:11:10 Patient TargetsNo targets recorded. Patient InstructionsNo instructions [...] DO Not Attach Compendium, Do Not Delete/merge, [id number] 11/12/2024 10:20:27 11/12/19 25 11/12/2024 influ henry virus A + B + SARS- CoV-2 (COVI D19) Ag panel , rapid IA, upper respi rator y speci men Flu B negati ve Not Available In-Office Order Internal Use Only DO Not Attach Compendium DO Not Attach Compendium, Do Not Delete/merge, [id number] 11/12/2024 10:20:27 11/12/19 25 11/12/2024 influ henry virus A + B + SARS- CoV-2 (COVI D19) Ag panel , rapid IA, upper respi rator y speci men Rapid SARS CoV 2 Ag, QL IA, respiratory specimen negati ve Not Available In-Office Order Internal Use Only DO Not Attach Compendium DO Not Attach Compendium, Do Not Delete/merge, [id number] 11/12/2024 10:20:27 10/07/20 24 01/08/2023 colon oscop y proce dure (PROC ) No observ ation record ed. [email or web address] Not Available 2023 12:12:26 11/12/19 25 11/12/2024 XR, chest No observ ation record ed. [facility] [address], [place], [address], 11/12/2024 16:16:55 01/07/20 25 01/06/2025 imagi ng/di agnos tic resul t No observ ation record ed. [facility] [address], [place], [address], 01/06/2025 16:57:27 Result Notes None recorded. Problems Name Problem SNOMED Code Status Onset Date Resolution Date Notes Provider Name and Address Organization Details Recorded Time Cough 58436129 Active 11/12/19 Kiko Mcrae MA null, [place] - [facility] 11/12/2024 10:42:27 Problem Notes None recorded. Procedures Surgical History Date Name Laterality Status Provider Name and Address Organization Details Recorded Time 11/22/19 Cholecystectomy completed Ada Rodriguez MA [facility] 01/09/2024 17:23:55 Angioplasty With Stent completed Ada Rodriguez MA [facility] 01/09/2024 17:24:18 destruction of lesion of cervix completed Ada Rodriguez MA [facility] 01/09/2024 17:25:02 Imaging Results Imaging Date Name Status LastModified by Organiz ation Details LastModified Time 01/08/2023 colonoscopy procedure (PROC) completed [facility] Information not available 10/07/2024 12:12:26 11/12/2024 XR, chest completed [address], [place], [address], 11/12/2024 16:16:55 01/06/2025 imaging/diagnos tic result active [address], [place], [address], 01/06/2025 16:57:27 Procedure Notes None recorded. Medical Equipment None Reported. Allergies Allergen ID Allergen Name Allergen Category Reaction Reaction Severity Criticality Documentation Date Start Date Code Code System Note Provider Name and Address Organization Details Recorded Time 700552 sumatript an medicatio n Not available Not available Not available 01/09/2024 06387 RxNorm Not Available Not Available Not Available 029873 cultivate d mushroom extract food Not available Not available Not available 01/09/2024 22045 17 RxNorm Not Available Not Available Not Available Medications Name Sig Start Date Stop Date Status Note LastModified by Organization Details LastModified Time amoxicillin 500 mg capsule TAKE 1 CAPSULE BY MOUTH EVERY 8 HOURS FOR 7 DAYS active Not Available Not Available No t Available doxycycline hyclate 100 mg capsule TAKE 1 CAPSULE BY MOUTH TWICE DAILY FOR 10 DAYS 12/02 completed Not Available Not Available Not Available spironolacto ne 100 mg tablet 11/12 completed [...] TAKE 1 TABLET BY MOUTH EVERY DAY active Not Available Not Available No t Available amoxicillin 875 mg-potassium clavulanate 125 mg tablet TAKE 1 TABLET BY MOUTH EVERY 12 HOURS FOR 7 DAYS active Not Available Not Available No t Available Xarelto 20 mg tablet active Not Available Not Available No t Available Vitals Date Recorded Body height Body mass index (BMI) Body weight Heart rate Oxygen saturation Oxygen saturation in Arterial blood by Pulse oximetry Systolic blood pressure Diastolic blood pressure Provider Name and Address Organization Details Last Updated DateTime 4 175.26 cm 23.3 kg/m2 76400.5 9 g 89 /min 99 % 99 % 124 mm[Hg] 86 mm[Hg] Ada Rodriguez MA [facility] 4 17:37:54 Date Recorded Body height Body mass index (BMI) Body weight Heart rate Oxygen saturation Oxygen saturation in Arterial blood by Pulse oximetry Systolic blood pressure Diastolic blood pressure Provider Name and Address Organization Details Last Updated DateTime 4 175.26 cm 23.2 kg/m2 23265.0 8 g 82 /min 98 % 98 % 126 mm[Hg] 70 mm[Hg] Justina Paz MA [facility] 4 14:58:54 Date Recorded Body height Body mass index (BMI) Body weight Heart rate Oxygen saturation Oxygen saturation in Arterial blood by Pulse oximetry Systolic blood pressure Diastolic blood pressure Provider Name and Address Organization Details Last Updated DateTime 4 175.26 cm 23.6 kg/m2 95348.4 2 g 75 /min 97 % 97 % 118 mm[Hg] 70 mm[Hg] Becki Gomes MA [facility] 4 15:19:20 Date Recorded Body height Body mass index (BMI) Body weight Heart rate Oxygen saturation Oxygen saturation in Arterial blood by Pulse oximetry Systolic blood pressure Diastolic blood pressure Provider Name and Address Organization Details Last Updated DateTime 5 175.26 cm 22.5 kg/m2 22251.7 6 g 122 /min 99 % 99 % 130 mm[Hg] 72 mm[Hg] Becki Gomes MA [place] - [facility] 5 10:14:48 Social History Question Answer Notes LastModified by Organizat ion Details LastModified Time Tobacco Smoking Status Never Smoker Ada Rodriguez MA [place], [place] - [facility] 01/09/2024 17:22:27 Do You Have An Advance [...] Response Coronary Artery Disease N Other N Atrial Fibrillation N High Blood Pressure N Kidney or Bladder Problems N Thyroid Problems N GI Problems N Depression N COPD N Blood Clots Y Skin Problems Y Anemia N Heart Attack ([place]) Y Anxiety Disorder Y Diabetes N Muscle, [...] Influenza, split virus, quadrivalent, preservative 9 completed MALINDA Sun, [place] [facility] 11/12/2024 09:33:31 COVID-19, mRNA, LNP-S, PF, 30 mcg/0.3 mL dose 1 completed MAL[place]DA [place], [place] [facility] 11/12/2024 09:33:31 COVID-19, mRNA, LNP-S, PF, 30 mcg/0.3 mL dose 1 completed Becki Gomes MALINDA [place], [place] - [facility] 11/12/2024 09:33:31 Tdap 9 completed Becki GomesMALINDA, [place] [facility] 11/12/2024 09:33:31 Influenza, split virus, quadrivalent, PF 1 completed MALINDA [place], [place] [facility] 11/12/2024 09:33:31 Past Encounters Encounter ID Performer Location Encounter Start Date Encounter Closed Date Diagnosis/Indication Diagnosis SNOMED-CT Code Diagnosis ICD10 Code Diagnosis Note [id number] MD Ela García (Adult Med) [address] [place] [phone] 01/09/2024 16:36:02 01/09/2024 18:24:50 Hyperlipidemia 09672575 E78.5 Anxiety 46316782 F41.9 [id number] Weston Henry MD [facility] [address] [place] [phone] 05/15/2024 14:29:32 05/15/2024 15:37:55 Patent foramen ovale 501209638 Q21.12 Anxiety 12646857 F41.9 Heterozygo us Factor V Leiden mutation 348350257 D68.51 [id number] Weston Henry MD [facility] [place] [address] [place] [phone] 1 10/02/2024 15:00:09 10/02/2024 16:11:52 Body mass index 20-24 - normal 510662222 Z68.23 Patent foramen ovale 204 159233 Q21.12 Anxiety 27831587 F41.9 Heterozygo us Factor V Leiden mutation 670471785 D68.51 [id number] MD Ela García (Adult Med) [address] [place] [phone] 11/12/2024 10:04:24 11/12/2024 11:06:24 Body mass index 20-24 - normal 286241706 Z68.23 Cough 78034582 R05.9 Health Concerns Section Related Observation LastModified by Organization Detai ls LastModified Time None Recorded Concern Status LastModified by Organization Details LastModified Time None Recorded Advance Directives Directive N: Payers Encounter Date Sequence Insurance Name Policy Number Policy Zambrano Covered Member ID Zambrano Member ID Guarantor Name 01/09/2024 1 [facility] [id number] Camacho R White [id number] Camacho White 05/15/2024 1 [facility] [id number] Camacho R White [id number] Camacho White 10/02/2024 1 [facility] [id number] Camacho R White [id number] Camacho White 11/12/2024 1 [facility] [id number] Camacho R White [id number] Camacho White Notes Date Note Type Note Provider Name and Address Organization Details Recorded Time 01/09/2024 text/html Anxiety stableHi story of factor V abnormality she is maintained on Xarelto because of history of DVT and 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 Weston Henry MD Attn: Accounting, [place], [address], [facility] - [facility] 01/09/2024 22:37:26 05/15/2024 text/html Anxiety stableHi story of factor V abnormality she is maintained on Xarelto because of history of DVT and 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allergies acting up they seem to be responsive to Zyrtec [id number] Weston Henry MD Attn: Accounting, [address] [place], [address], [place] - [facility] 05/25/2024 21:25:35 10/02/2024 text/html PFO no stroke sy mptoms her anxiety seems to be controlled heterozygous factor 5 Leiden mutation continues on Xarelto at this moment Weston Henry MD Attn: Accounting,[address] [place], [address], [place] [facility] 10/27/2024 16:36:05 11/12/2024 text/html Cough for 2-3 we eks intermittent fever and chills now productive and yellow sputum with no chest pain no shortness a breath does wake her up sometimes when she gets into coughing fits. Some nasal discharge Weston Henry MD Attn: Accounting, [address] [place], [address], [facility] - [facility] 11/16/2024 17:36:39 OBGyn Episode No OBEpisode recorded.
--- OUTSIDE RECORDS SUMMARY | 2025-01-06 17:19 | XMS_ITS | Clinical Summary ---
Author Organization [facility] Vin esteban Marilyn Address [address] [place] [address] Care Team Providers Care Electronic Instrument Trades Worker Name Role Phone Shree Henry MD Primary Care Provider [phone] Allergies Active Allergy Reactions Criticality Noted Date [...] Encounters Date Type Department Care Team Description 01/06/2025 Telephone [facility] Oncology and Hematology - [address] [place] [address] Darren Bowles MD Procedure Results 01/06/2025 Telephone [facility] H[facility]ology [address] [place] [address] Darren Bowles MD STAT US 12/27/2024 External Device Data STL ABSTRACTION Provider, Abstract 12/26/2024 External Device Data STL ABSTRACTION Provider, Abstract 12/24/2024 External Device Data STL ABSTRACTION Provider, Abstract 12/10/2024 External Device Data STL ABSTRACTION Provider, Abstract 11/13/2024 External Device Data STL ABSTRACTION Provider, Abstract 11/10/2024 2:15 PM PRODUCTION SUPPLY EQUIPMENT TENDER Office Visit [facility] Oncology and Hematology - [address] [phone] Darren Bowles MD Acute deep vein thrombosis [...] Comments Blood Pressure 107/76 11/10/2024 2:10 PM PRODUCTION SUPPLY EQUIPMENT TENDER Pulse 85 11/10/2024 2:10 PM PRODUCTION SUPPLY EQUIPMENT TENDER Temperature 36.6 C (97.8 F) 11/10/2024 2:10 PM PRODUCTION SUPPLY EQUIPMENT TENDER Respiratory Rate 17 11/10/2024 2:10 PM PRODUCTION SUPPLY EQUIPMENT TENDER Oxygen Saturation 97% 11/10/2024 2:10 PM PRODUCTION SUPPLY EQUIPMENT TENDER Inhaled Oxygen Concentration - - Weight 68.2 kg (150 lb 6.4 oz) 11/10/2024 2:10 P M PRODUCTION SUPPLY EQUIPMENT TENDER Height 175.3 cm (5' 9 ) 05/25/2022 2:30 PM CDT Body Mass Index 22.21 05/25/2022 2:30 PM CDT Plan of Treatment Upcoming Encounters Date Type Department Care Team (Late st Contact Info) Description 11/09/2025 1:00 PM PRODUCTION SUPPLY EQUIPMENT TENDER Office Visit [facility] Oncology and Hematology - [address] [facility] [address] [place] [address] Darren Bowles MD [address] [facility] [address] [place] [address] Health Maintenance Due Date Last [...] (2 - Td or Tdap) 07/25/2029 Insurance [facility] [id number] Care Teams Electronic Instrument Trades Worker Relationship Specialty Start Date End Date Shree Henry MD [address] [place] [address] PCP - General Internal Medicine 07/10/19
== END 2025-01-06 15:21 | disposition home or self-care (01) ==
PROVIDERS: PCP Internal Medicine; Visit Provider Internal Medicine Hematology & Oncology
DX: M79.662 Pain in left lower leg (principal); M79.89 Other specified soft tissue disorders
CPT/HCPCS: 93971